=== PATIENT | male | born 1955 | race Caucasian/White ===

== ENCOUNTER 2018-06-18 06:00 | Observation (INO) | payer OTHER ==
--- NOTE | 2018-06-16 15:07 | Diagnostic Imaging Report ---
EXAMINATION: PA and lateral views of the chest. COMPARISON: None CLINICAL HISTORY: Preop exam DISCUSSION: Lines/tubes: None. Lungs: The lungs are well inflated and clear. There is no evidence of pneumonia or pulmonary edema. Pleura: There is no pleural effusion or pneumothorax. Heart and mediastinum: Cardiomediastinal silhouette is unremarkable. Pulmonary vasculature is normal. Bones and soft tissues: No acute bony abnormalities. Degenerative changes in the thoracic spine IMPRESSION: No acute cardiopulmonary abnormalities. Signed by: Dr. Francisco Alva M.D. on 06/16/2018 3:04 PM
[2018-06-16 15:17] LABS: BASOPHILS % 0.3 % (0.0-1.0); EOSINOPHILS # (AUTO) 0.1 (0.0-0.4); EOSINOPHILS % 1.1 % (0.0-6.0); HEMATOCRIT 47.9 % (38.2-49.6); HEMOGLOBIN 15.2 g/dL (14.0-18.0); LYMPHOCYTES # (AUTO) 1.2 (1.0-3.2); LYMPHOCYTES % 13.2 % (18.0-39.1); MEAN CORPUSCULAR HEMOGLOBIN 30.3 pg (28-32); MEAN CORPUSCULAR HGB CONC 31.7 g/dL (31-35); MEAN CORPUSCULAR VOLUME 95.6 fL (81-99); MONOCYTES # (AUTO) 0.9 (0.2-0.8); MONOCYTES % 10.1 % (4.4-11.3); NEUTROPHILS # (AUTO) 6.6 (2.1-6.9); NEUTROPHILS % 73.4 % (38.7-80.0); PLATELET COUNT 155 x10e3/uL (140-360); RED BLOOD COUNT 5.01 x10e6/uL (4.3-5.7); RED CELL DISTRIBUTION WIDTH 14.2 % (11.7-14.4)
[2018-06-16 15:27] LABS: INR 1.13; PARTIAL THROMBOPLASTIN TIME 23.1 seconds (23.8-35.5); PROTHROMBIN TIME 13.6 seconds (11.9-14.5)
[2018-06-16 15:34] LABS: ANION GAP 13.4 mmol/L (8-16); BLOOD UREA NITROGEN 21 mg/dL (7-26); BUN/CREATININE RATIO 19 (6-25); CALCIUM 9.7 mg/dL (8.4-10.2); CARBON DIOXIDE 27 mmol/L (22-29); CHLORIDE 102 mmol/L (98-107); CREATININE, SERUM 1.08 mg/dL (0.72-1.25); EST GLOMERULAR FILTRATION RATE > 60 ML/MIN (60-); GLUCOSE 95 mg/dL (74-118); POTASSIUM 4.4 mmol/L (3.5-5.1); SODIUM 138 mmol/L (136-145)
[~2018-06-18] VITALS: Ht 180.3 cm; Wt 122.5 kg
[~2018-06-18 06:00] MED LIST: ALLOPURINOL100 MG; GABAPENTIN100 MG; HYDROCODON-ACE1 EAC9; LISINOPRIL20 MG; OXYCODONE-ACET1 EAC3 PO; PERCOCET 10-321 EACH PO; SOMA350 MG PO; TRIAMTERENE-HC1 EAC2; VICODIN ES 7.51 EACH PO
[2018-06-18] MEDS ORDERED: LIDOCAINE HCL (LTA) 4 ML SOLN ONE (07:03)
[2018-06-18] MEDS ORDERED: ACETAMINOPHEN 1000 MG/100 ML 100 ML IV ONE (07:03)
[2018-06-18] MEDS ORDERED: BACITRACIN 50,000 UNIT VIAL ONE (07:31)
[2018-06-18] MEDS ORDERED: GELATIN SPONGE SZ 100 ONE (07:31)
[2018-06-18] MEDS ORDERED: THROMBIN FOR SOLN 5,000 UNIT VIAL ONE (07:31)
[2018-06-18] MEDS ORDERED: BUPIVACAINE 0.5%/EPI 30 ML SDV INJ ONE (07:31)
[2018-06-18] MEDS ORDERED: CEFAZOLIN SOD 1 GM VIAL ONE (07:35)
[2018-06-18] MEDS ORDERED: LACTATED RINGER'S 1,000 ML IV SCH (09:20)
[2018-06-18] MEDS ORDERED: CARISOPRODOL 350 MG TAB PO PRN (09:30)
[2018-06-18] MEDS ORDERED: ZOLPIDEM TARTRATE 5 MG TAB PO PRN (09:30)
[2018-06-18] MEDS ORDERED: ACETAMINOPHEN 325 MG TAB PO PRN (09:30)
[2018-06-18] MEDS ORDERED: OXYCODONE/ACETAMINOPHEN 5-325 1 EACH TABLET PO PRN (09:30)
[2018-06-18] MEDS ORDERED: CEPACOL SORE THROAT LOZENGES PO PRN (09:30)
[2018-06-18] MEDS ORDERED: MAGNESIUM/ALUMINUM/SIMETHICONE 30 ML UDC PO PRN (09:30)
[2018-06-18] MEDS ORDERED: PROMETHAZINE HCL (IM) 25 MG/ML VIAL IM PRN (09:30)
[2018-06-18] MEDS ORDERED: FENTANYL CITRATE/PF 100MCG/2 ML INJ ONE ×2 (10:40→19:11)
[2018-06-18] MEDS ORDERED: HYDROMORPHONE 1MG/1ML INJ ONE (11:01)
[2018-06-18 12:31] VITALS: BP 166/88
--- NOTE | 2018-06-18 12:33 | Operative Report ---
DATE OF PROCEDURE: June 18, 2018 PREOPERATIVE DIAGNOSIS: C4-C5 spondylosis and spondylolisthesis with spinal stenosis, M50.121. POSTOPERATIVE DIAGNOSIS: C4-C5 spondylosis and spondylolisthesis with spinal stenosis, M50.121. PROCEDURES 1. C4-C5 anterior cervical diskectomy and microsurgical osteophyte resection and allograft fusion, 80258. 2. Preparation of MTF cortical cancellous allograft, 16048. 3. C5-C6 anterior cervical plating with Synthes ZPN plate, 96851. ANESTHESIA: General. INDICATIONS: Patient is a 63-year-old man who presents with C4-C5 spondylosis with large disk osteophyte complex, grade I spondylolisthesis, bilateral uncinate hypertrophies with central and bilateral foraminal stenosis. He was taken to the operating room for C4-C5 anterior cervical decompression and fusion. PROCEDURE: After induction of general anesthesia, the patient was placed on the operating table in the supine position. The right side of the neck was prepped and draped in sterile fashion. The fluoroscopic C-arm was positioned in cross-table lateral orientation. A transverse incision was created at the right side of the neck superimposed on the C4-C5 disk space as determined by fluoroscopy. The platysma was divided in line with the incision. The subplatysmal dissection was carried out. An avascular plane of dissection was developed medial to sternocleidomastoid muscle and was followed medial to the carotid sheath to the anterior border of the cervical spine. The deep cervical fascia was opened. The esophagus was retracted to the left. The attachments of longus coli muscles to the anterolateral aspects of vertebral bodies of C4 and C5 were divided. The anterior longitudinal ligament was resected. Silvis posts were inserted into C4 and C5. Then, the Silvis distractor was used to distract the disk space. The anterior annulus of the disk was incised with a #11 blade and the contents of the disks were thoroughly evacuated with angled curettes and pituitary rongeurs. The posterior osteophytes were meticulously drilled with a 2 mm cutting bur on a high-speed drill until they were completely removed. The posterior annulus of the disk, herniated disk material, and the posterior longitudinal ligament were resected layer by layer until the dura was fully exposed and decompressed. The medial aspects of the uncinate processes were resected bilaterally to further expose and decompress the origins of the corresponding nerve roots. After satisfactory decompression had been achieved, the endplates were prepared for fusion. The disk space was sized and found to be 9 mm in height. A piece of MTF cortical cancellous allograft measuring 9 mm in thickness was selected and loaded onto a corresponding Synthes ZPN plate. The construct was inserted into the C4-C5 disk space under distraction and fluoroscopic guidance and tapped in place until the anterior margin of the plate was flushed with anterior margin of the vertebral bodies. The ZPN plate was then screwed to the endplates of C4 and C5 with 2 pairs of 16 mm screws. All screws were locked. An excellent construct was obtained. The wound was copiously irrigated with Bacitracin solution. Meticulous hemostasis was secured. Retractor was removed. The platysma was closed with 3-0 Vicryl sutures. The skin was closed with 4-0 Monocryl sutures in subcuticular fashion. Steri strips and dressing were applied. The patient was awakened, extubated, and taken to the postanesthesia care unit in stable condition. No intraoperative complications were encountered. Estimated blood loss was 10 mL. Job#: [id number] VAS
[2018-06-18 13:24] VITALS: BP 166/88
[2018-06-18] MEDS ORDERED: CEFAZOLIN SOD 1 GM/D5W 50ML 50 ML IV SCH (14:00)
[2018-06-18] MEDS ORDERED: PROPOFOL IV EMULSION 10 MG/ML 20 ML VIAL ONE (14:53)
[2018-06-18] MEDS ORDERED: LIDOCAINE HCL 2% LOCAL INJ 5 ML SDV VIAL INJ ONE (14:53)
[2018-06-18] MEDS ORDERED: ROCURONIUM BROMIDE 10 MG/ML 5ML VIAL ONE (14:53)
[2018-06-18] MEDS ORDERED: GLYCOPYRROLATE INJ 1MG/ 5 ML SYR ONE (14:53)
[2018-06-18] MEDS ORDERED: DEXAMETHASONE SOD PHOS INJ 4 MG/ML VIAL ONE (14:53)
[2018-06-18] MEDS ORDERED: ONDANSETRON HCL INJ 2 MG/ML VIAL ONE (14:53)
[2018-06-18] MEDS ORDERED: LIDOCAINE HCL 2% JELLY 5 ML TUBE ONE (14:53)
[2018-06-18] MEDS ORDERED: SEVOFLURANE INHAL SOLN 250 ML PEN BTL ONE (14:53)
[2018-06-18] MEDS ORDERED: NEOSTIGMINE 5 MG/5ML SYR ONE (14:53)
[2018-06-18] MEDS: HYDROMORPHONE 2MG/ML 2 MG/ML ML IV PRN ×2 (15:14→21:12)
[2018-06-18] MEDS: GABAPENTIN 300 MG CAP PO SCH ×2 (15:21→21:15)
[2018-06-18 15:38] VITALS: BP 123/62
[2018-06-18] MEDS: CEFAZOLIN SOD 1 GM VIAL IV SCH (17:06)
[2018-06-18] MEDS ORDERED: MIDAZOLAM HCL 2 MG/2 ML VIAL ONE (19:11)
[2018-06-18 19:55] VITALS: BP 135/66
[2018-06-18 20:00] VITALS: BP 135/66
[2018-06-18] MEDS: ONDANSETRON HCL INJ 2 MG/ML VIAL IV PRN (21:12)
[2018-06-19 00:30] VITALS: BP 138/64
[2018-06-19] MEDS: HYDROMORPHONE 2MG/ML 2 MG/ML ML IV PRN ×2 (03:12→07:45)
[2018-06-19 05:00] VITALS: BP 142/61
--- NOTE | 2018-06-19 06:50 | Diagnostic Imaging Report ---
C-SPINE 2 VIEWS AP LATERAL HISTORY: Postsurgical cervical spine COMPARISON: MRI of the cervical spine on 11/16/2014 FINDINGS: Bones: No displaced fracture. Postsurgical anterior stabilization at C4-5 level with intervertebral disc spacer Osseous alignment is within normal limits. Joints: Multilevel facet and uncovertebral hypertrophy. Soft tissues: The soft tissues appear unremarkable. IMPRESSION: No acute radiographic abnormality. Postsurgical cervical spine with hardware in good alignment and position Signed by: Dr. Bo Bustillos M.D. on 06/19/2018 6:47 AM
[2018-06-19] MEDS: ONDANSETRON HCL INJ 2 MG/ML VIAL IV PRN (07:45)
[2018-06-19 07:56] VITALS: BP 142/67
[2018-06-19] MEDS: CEFAZOLIN SOD 1 GM VIAL IV SCH ×2 (08:10)
[2018-06-19] MEDS: GABAPENTIN 300 MG CAP PO SCH (08:10)
[2018-06-19] MEDS ORDERED: ALLOPURINOL 300 MG TAB PO SCH (09:00)
[2018-06-19] MEDS ORDERED: LISINOPRIL 20 MG TAB PO SCH (09:00)
[2018-06-19 09:26] VITALS: BP 142/67
[2018-06-19] MEDS ORDERED: NORCO 7.5-3251 EACH PO (10:02)
--- OUTSIDE RECORDS SUMMARY | 2018-07-09 07:39 | XMS REPORT ---
Author Author [facility] Address Unknown Phone Unavailable Care Team Providers Care [employer] Name Role Phone KOBE BUSCH Unavailable Unavailable Problems This patient has no known problems. Allergies, Adverse Reactions, Alerts This patient has no known allergies or adverse reactions. Medications This patient has no known medications. Results Test Description Test Time Test Comments Text Results Atomic Results Result Comments C-SPINE 2 VIEWS AP LATERAL 2018-06-19 06:45:00 [place] [address] Patient Name: BRANDON BOYER MR #: [id number] : 1955 Age/Sex: 63/ M Req #: [id number] [facility] Physician: KOBE BUSCH MD Ordered by: KOBE BUSCH MD Report #: [id number] Location: [facility] Room/Bed : [place] [address] Procedure: [id number] DX/C-SPINE 2 VIEWS AP LATERAL Exam Date: 06/19/18 Exam Time: 0610 REPORT STATUS: Signed C-SPINE 2 VIEWS AP LATERAL HISTORY: Postsurgical cervical spine COMPARISON: MRI of the cervical spine on 2014 FINDINGS: Bones: No displaced fracture. Postsurgical anterior stabilization at C4-5 level with intervertebral disc spacer Osseous alignment is within normal limits. Joints: Multilevel facet and uncovertebral hypertrophy. Soft tissues: The soft tissues appear unremarkable. IMPRESSION: No acute radiographic abnormality. Postsurgical cervical spine with hardware in good alignment and position Signed by: Dr. Bo Bustillos M.D. on 06/19/2018 6:47 AM Dictated By: BO CRUZ MD [id number] COPY TO: KOBE BUSCH MD CHEST 2 VIEWS 2018-06-16 15:03:00 [place] [address] Patient Name: BRANDON BOYER MR #: [id number] : 1955 Age/Sex: 63/M Req #: [id number] Adm Physician: Ordered by: KOBE BUSCH MD Report #: [id number] Location: OR Room/Bed: Procedure: [id number] DX/CHEST 2 VIEWS Exam Date: 06/16/18 Exam Time: 1440 REPORT STATUS: Signed EXAMINATION: PA and lateral views of the chest. COMPARISON: None CLINICAL HISTORY: Preop exam DISCUSSION: Lines/tubes: None. Lungs: The lungs are well inflated and clear. There is no evidence of pneumonia or pulmonary edema. Pleura: There is no pleural effusion or pneumothorax. Heart and mediastinum: Cardiomediastinal silhouette is unremarkable. Pulmonary vasculature is normal. Bones and soft tissues: No acute bony abnormalities. Degenerative changes in the thoracic spine IMPRESSION: No acute cardiopulmonary abnormalities. Signed by: Dr. Galindo Alva M.D. on 06/16/2018 3:04 PM Dictated By: GALINDO ALVA MD 1506 Transcribed By : XOCHILT on 06/16/18 150 COPY TO: KOBE BUSCH MD
== END 2018-06-19 10:42 | disposition home or self-care (01) ==
LOC: OR 06:00 → PACU V 09:22 → IMCU 12:28 → UNDODISOB 15:23
PROVIDERS: ADMIT Neurological Surgery; ATTEND Neurological Surgery
DX: M50.121 Cervical disc disorder at C4-C5 level with radiculopathy (principal); I10 Essential (primary) hypertension; B18.2 Chronic viral hepatitis C; E78.5 Hyperlipidemia, unspecified; Z96.653 Presence of artificial knee joint, bilateral; G47.33 Obstructive sleep apnea (adult) (pediatric); E11.9 Type 2 diabetes mellitus without complications; Z88.5 Allergy status to narcotic agent; Z01.810 Encounter for preprocedural cardiovascular examination; Z01.812 Encounter for preprocedural laboratory examination; Z01.811 Encounter for preprocedural respiratory examination
CPT/HCPCS: 20931; 22551; 22845; 36415 ×2; 71046; 72040; 77003; 80048; 82948; 85025; 85610; 85730; 86850; 86900; 88304; 93005; C1713 ×2; C9359; G0378 ×2; J0690 ×2; J1100; J1170 ×3; J2001 ×2; J2250; J2405 ×2; J3490; J7120

== ENCOUNTER 2019-02-01 10:48 | Inpatient (IN) | payer OTHER ==
[2019-02-01] VITALS (11 sets, daily range): BP systolic 100–145; BP diastolic 77–96
[~2019-02-01] VITALS: Ht 172.7 cm; Wt 130.8 kg
[~2019-02-01 10:48] MED LIST changes: +NORCO 7.5-3251 EACH PO
[2019-02-01] MEDS ORDERED: DILTIAZEM HCL 5 MG/ML 5 ML VIAL IV STA (11:12)
[2019-02-01] MEDS ORDERED: SODIUM CHLORIDE 0.9% 500ML 500 ML IV ONE ×2 (11:15→12:30)
--- NOTE | 2019-02-01 11:17 | NUR ---
REC'D PT IN RM 2 FROM TRIAGE FOR IRREGULAR HEART RHYTHM.. AMBULATED TO THE ROOM WITH A STEADY GAIT AND DENIES ANY CHEST PAIN/SHORTNESS OF BREATH. PLACED ON THE MONITOR AND IV ACCESS ATTEMPTED. BED LOW/LOCKED AND CALL ALEXANDER IN HAND.
[2019-02-01] MEDS ORDERED: SODIUM CHLORIDE 0.9% 500ML 500 ML ONE (11:19)
[2019-02-01] MEDS ORDERED: ASPIRIN 81 MG CHEW TAB PO ONE (11:30)
[2019-02-01] MEDS ORDERED: DILTIAZEM HCL 5 MG/ML 5 ML VIAL IV ONE ×2 (11:30→11:37)
[2019-02-01 11:35] LABS: BASOPHILS % 0.2 % (0.0-1.0); EOSINOPHILS # (AUTO) 0.1 (0.0-0.4); EOSINOPHILS % 2.1 % (0.0-6.0); HEMATOCRIT 42.6 % (38.2-49.6); HEMOGLOBIN 13.6 g/dL (14.0-18.0); LYMPHOCYTES # (AUTO) 0.9 (1.0-3.2); LYMPHOCYTES % 14.6 % (18.0-39.1); MEAN CORPUSCULAR HGB CONC 31.9 g/dL (31-35); MEAN CORPUSCULAR VOLUME 93.8 fL (81-99); MONOCYTES # (AUTO) 0.6 (0.2-0.8); MONOCYTES % 9.7 % (4.4-11.3); NEUTROPHILS # (AUTO) 4.4 (2.1-6.9); NEUTROPHILS % 72.6 % (38.7-80.0); PLATELET COUNT 131 x10e3/uL (140-360); RED BLOOD COUNT 4.54 x10e6/uL (4.3-5.7); RED CELL DISTRIBUTION WIDTH 14.2 % (11.7-14.4)
--- NOTE | 2019-02-01 11:37 | NUR ---
DR. GUERRA AT BEDSIDE SPEAKING WITH PT.
[2019-02-01 11:38] LABS: INR 1.05; PROTHROMBIN TIME 14.2 seconds (11.9-14.5)
[2019-02-01 11:39] LABS: PARTIAL THROMBOPLASTIN TIME 24.2 seconds (23.8-35.5)
[2019-02-01 11:46] LABS: ALANINE AMINOTRANSFERASE 24 IU/L (0-55); ALBUMIN 3.9 g/dL (3.5-5.0); ALBUMIN/GLOBULIN RATIO 1.3 (0.8-2.0); ALKALINE PHOSPHATASE 64 IU/L (40-150); ANION GAP 14.4 mmol/L (8-16); BLOOD UREA NITROGEN 12 mg/dL (7-26); BUN/CREATININE RATIO 11 (6-25); CALCIUM 9.7 mg/dL (8.4-10.2); CARBON DIOXIDE 28 mmol/L (22-29); CHLORIDE 103 mmol/L (98-107); CREATINE KINASE 70 IU/L (30-200); CREATININE, SERUM 1.06 mg/dL (0.72-1.25); EST GLOMERULAR FILTRATION RATE > 60 ML/MIN (60-); GLUCOSE 136 mg/dL (74-118); POTASSIUM 4.4 mmol/L (3.5-5.1); SODIUM 141 mmol/L (136-145)
[2019-02-01] MEDS ORDERED: METOPROLOL TARTRATE INJ 1 MG/ML VIAL IV ONE ×4 (12:00→20:45)
[2019-02-01 12:05] LABS: THYROID STIMULATING HORMONE 0.675 uIU/mL (0.350-4.940)
[2019-02-01] MEDS ORDERED: ENOXAPARIN SODIUM INJ 100 MG/ML SYR SC SCH (12:30)
[2019-02-01 12:43] LABS: CLARITY,URINE CLEAR (CLEAR); COLOR,URINE YELLOW (YELLOW); LEUKOCYTE ESTERASE ,URINE NEGATIVE (NEGATIVE); NITRITE,URINE NEGATIVE (NEGATIVE)
[2019-02-01 12:44] LABS: BILIRUBIN,URINE NEGATIVE (NEGATIVE); KETONES,URINE NEGATIVE (NEGATIVE); PROTEIN,URINE DIPSTICK TRACE (NEGATIVE); URINE UROBILINOGEN 0.2 mg/dL (0.2 - 1)
[2019-02-01 12:55] LABS: BACTERIA,URINE FEW /HPF; RBC,URINE 0-5 /HPF (0-5)
[2019-02-01 12:56] LABS: EPITHELIAL CELLS,URINE FEW /LPF
--- NOTE | 2019-02-01 13:41 | Diagnostic Imaging Report ---
EXAM: CHEST SINGLE (PORTABLE) DATE: 02/01/2019 11:12 AM INDICATION:Chest pain COMPARISON: Chest x-ray, 06/16/2018 FINDINGS: Lines and tubes: None Heart size normal. No focal pulmonary opacity, pleural effusion or pneumothorax. Upper abdomen unremarkable. No acute bony abnormality. IMPRESSION: No evidence for acute disease. Signed by: Dr. Ravindra Johnson M.D. on 02/01/2019 1:38 PM
[2019-02-01] MEDS ORDERED: AMIODARONE HCL 360MG 200 ML IV SCH ×2 (13:45→18:00)
[2019-02-01] MEDS ORDERED: AMIODARONE HCL 150MG 100 ML IV SCH (13:45)
[2019-02-01] MEDS ORDERED: AMIODARONE HCL 150MG 100 ML ONE (13:49)
[2019-02-01] MEDS ORDERED: AMIODARONE HCL 900 MG in DEXTROSE 5 % 500ML BOTTLE 500 ML IV ONE (14:00)
[2019-02-01] MEDS ORDERED: AMIODARONE HCL 150 MG in DEXTROSE 5% 100ML 100 ML IV ONE (14:00)
--- NOTE | 2019-02-01 14:10 | Diagnostic Imaging Report ---
EXAM: CT Chest WITH contrast 02/01/2019 12:22 PM INDICATION: Tachycardia COMPARISON: Chest x-ray, 02/01/2018 TECHNIQUE: Chest was scanned utilizing a multidetector helical scanner from the lung apex through the level of the diaphragm after administration of IV contrast. Thin section reconstructions were obtained with special concentration on the pulmonary arteries. Coronal and sagittal reformations were obtained. Pulmonary embolism protocol was performed. Dose modulation, iterative reconstruction, and/or weight based adjustment of the mA/kV was utilized to reduce the radiation dose to as low as reasonably achievable IV CONTRAST: 100 cc Isovue-370 RADIATION DOSE: Total DLP: 667.56 mGy*cm Estimated effective dose: (DLP x 0.014 x size factor) mSv COMPLICATIONS: None FINDINGS: LINES/ TUBES: None. LUNGS AND AIRWAYS: No filling defect is identified within the pulmonary arteries to the segmental level. No pulmonary opacity. Trachea and main bronchi are clear. PLEURA: The pleural spaces are clear. HEART AND MEDIASTINUM: The thyroid gland is normal. No mediastinal, hilar or axillary lymphadenopathy. The heart is normal in size.. There is no pericardial effusion. No dilatation of the thoracic aorta. There is mild dilatation of the main pulmonary artery measuring 3.5 cm, nonspecific but may be seen with pulmonary hypertension. Calcifications are seen in the aortic valve. UPPER ABDOMEN: Included portions of the liver, spleen, pancreas and adrenals unremarkable. BONES: There are degenerative changes in the thoracic spine. No acute or suspicious bony lesion. SOFT TISSUES: Superficial surrounding soft tissue unremarkable. IMPRESSION: 1. No CT evidence for acute pulmonary embolism. No thoracic aortic aneurysm. Mild nonspecific dilatation of the main pulmonary artery which may be seen with pulmonary hypertension. 2. No pulmonary consolidation or airspace opacity.. Staff: Alex Signed by: Dr. Ravindra Johnson M.D. on 02/01/2019 2:07 PM
[2019-02-01] MEDS: FAMOTIDINE 20 MG/2 ML VIAL IV SCH (14:15)
[2019-02-01] MEDS ORDERED: DEXTROSE 50% SYRINGE 50 ML IV PRN (14:15)
[2019-02-01] MEDS ORDERED: ONDANSETRON HCL INJ 2MG/ML 2ML 2 MG/ML VIAL IV PRN (14:15)
--- NOTE | 2019-02-01 14:46 | NUR ---
REPORT CALLED TO MAULIK JAUREGUI FOR THIS PT. TO GO TO RM 190.
[2019-02-01] MEDS: INSULIN LISPRO 100 UNIT/1 ML 3ML VIAL SQ SCH ×2 (16:30→21:00)
[2019-02-01] MEDS ORDERED: DIGOXIN INJ 0.25 MG/ML 2 ML AMP IV NR (17:30)
[2019-02-01] MEDS ORDERED: PNEUMOCOCCAL VACCINE POLYVALENT 23 MCG/0.5 ML VIAL IM SCH (18:00)
[2019-02-01 18:18] LABS: FREE THYROXINE INDEX 1.9166 (1.4-3.8)
[2019-02-01] MEDS: HYDROCODONE/APAP 7.5MG-325MG 1 EA TAB PO PRN (18:30)
[2019-02-01] MEDS ORDERED: SODIUM CHLORIDE 0.9% 50ML 50 ML ONE (19:19)
[2019-02-01] MEDS ORDERED: IOPAMIDOL 370 MG/ML 200 ML INFUS..BTL INJ ONE (19:19)
[2019-02-01] MEDS ORDERED: AMIODARONE HCL IV ONE (20:00)
[2019-02-01 20:09] LABS: CREATINE KINASE MB 1.6 ng/mL (0-5.0)
[2019-02-01] MEDS ORDERED: DIGOXIN INJ 0.25 MG/ML 2 ML AMP IV ONE (20:45)
[2019-02-01] MEDS: GABAPENTIN 100 MG CAP PO SCH (21:02)
[2019-02-01] MEDS: ENOXAPARIN SODIUM INJ 100 MG/ML SYR SC SCH (21:30)
--- NOTE | 2019-02-01 23:46 | History and Physical ---
CHIEF COMPLAINT: The patient is in ICU 190, admitted for atrial flutter. HISTORY OF PRESENT ILLNESS: This is a 63-year-old gentleman with a history of hypertension, hyperlipidemia, was in usual state of health until about one week ago, the patient started to have chest pain, noted is gradual in onset. Came in to the office today and was noted to have tachycardia. The patient's EKG was done, showed atrial flutter, and the patient was sent to the emergency room for further workup and management. PAST MEDICAL HISTORY: History of chronic pain syndrome, history of chronic low back pain, history of hypertension, history of gouty arthritis and osteoarthritis. Additional medical history includes hepatitis C and type 2 diabetes is controlled by diet. SURGICAL HISTORY: History of shoulder surgery, knee surgery in 1996. The patient has history of kidney removal. SOCIAL HISTORY: No EtOH. No IV drug abuse. Lives with and no history of any smoking either. REVIEW OF SYSTEMS: Positive for chest pain. Positive for some shortness of breath on exertion. No nausea, vomiting, or diarrhea. No constipation. No rectal bleeding. Positive for palpitation. No hematochezia. No hematemesis. No diplopia. No blurry vision. Positive for extreme tiredness. ALLERGIES: THE PATIENT IS ALLERGIC TO MORPHINE. MEDICINES: He takes at home are allopurinol 100 mg daily, gabapentin 400 mg 3 times a day, hydrocodone 7.5/325 q.6 hours, Percocet 10/325 a day, and lisinopril 20 mg daily. PHYSICAL EXAMINATION: GENERAL: The patient is alert and oriented x3, in ICU and did receive Lovenox and is on amiodarone drip. VITAL SIGNS: The patient's vital signs at this time pulse of 130, temperature of 98, blood pressure is 106/83, and pulse oximetry of 99%. HEENT: Normocephalic, atraumatic. Pupils are reactive to light and accommodation. CARDIOVASCULAR SYSTEM: S1, S2. Regular. The patient is tachycardic at 130. ABDOMEN: Nontender and nondistended. EXTREMITIES: No clubbing. Positive for trace edema. LABORATORY VALUES: Initial white count is 6.9, hemoglobin of 13.6, hematocrit of 42.6. Chemistry shows sodium of 141, potassium 4.4, BUN of 12, creatinine 1.06, glucose 136. BNP was 181.3. Coags, INR is 1.05. D-dimer is 1.53. IMAGING STUDIES: Chest CT was done because of D-dimer showed no CT evidence of pulmonary embolism. No pulmonary consolidation or airspace opacities. ASSESSMENT: 1. Atrial flutter. The patient is on amiodarone drip. 2. Acute congestive heart failure, systolic ejection fraction being 25% to 30%. Possible coronary artery disease. We will need cardiac workup. 3. Diabetes mellitus, controlled with diet. 4. Chronic low back pain. We will continue hydrocodone as needed. 5. History of hypoxia. We will need oxygen supplementation, chronic osteoarthritis. PLAN: Plan is to continue the patient in ICU. We will need to continue to monitor his rate and bring it down. At this time, we will keep him in ICU and Lovenox for prophylaxis. GI prophylaxis will be done too and also restart all his home medications including allopurinol, gabapentin. Further recommendation per clinical course. A consult with Dr. Prabhakar has been done. Cardiology has seen the patient already. MD DICK Ambriz/MODL /[id number]
--- NOTE | 2019-02-01 23:51 | Consultation ---
DATE OF CONSULTATION: Cardiology Consultation HISTORY OF PRESENT ILLNESS: This is a 63-year-old man with history of hypertension, venous insufficiency, status post ablation, who presented to his primary care provider with chest pain and palpitations. The patient states that his symptoms have been waxing and waning over the last few weeks, associated with some mild central chest pressure associated with a racing heart rate. He was found to be in atrial flutter with rapid ventricular response by his PCP and was transferred to the emergency department. REVIEW OF SYSTEMS: A 12-point review of system was conducted, is negative otherwise as stated above in the HPI. PAST MEDICAL HISTORY: As stated above in the HPI. PAST SURGICAL HISTORY: Cardiac catheterization and venous ablation. PAST FAMILY HISTORY: No premature coronary artery disease or sudden cardiac . SOCIAL HISTORY: No illicit drug, alcohol, or tobacco use. ALLERGIES: MORPHINE. MEDICATIONS: See medication reconciliation form. PHYSICAL EXAMINATION: VITAL SIGNS: Temperature is 98, heart rate is 130, respirations are 18, blood pressure is 114/81, and oxygen saturation 99% on room air. GENERAL: Well-appearing, well-built, in no apparent distress. Alert and oriented x3. HEAD: Normocephalic, atraumatic. EYES: The extraocular muscles are intact. Conjunctivae are clear. NECK: No JVD. No bruits. CARDIOVASCULAR: Irregularly irregular, tachycardic. Normal S1. No murmurs. LUNGS: Clear to auscultation bilaterally. No wheezing or rales. ABDOMEN: Soft, nontender, nondistended. EXTREMITIES: No clubbing, cyanosis, or edema. VASCULAR: 2+ pulses. SKIN: Warm, dry, intact. LABORATORY DATA: Reviewed. Hemoglobin 13.6. Creatinine 1.06, potassium 4.4, magnesium 2. Troponin 0.121. CT of the chest shows no evidence of acute pulmonary embolism or thoracic aortic aneurysm. Chest x-ray shows no acute cardiopulmonary abnormality. A 12-lead electrocardiogram showed atrial fibrillation with rapid ventricular response. Telemetry monitoring revealed atrial flutter with 2:1 block. IMPRESSION: 1. Atrial fibrillation/flutter with rapid ventricular response. 2. Hypertension. 3. Abnormal electrocardiogram. RECOMMENDATIONS: The patient presented with atrial fibrillation/flutter with rapid ventricular response. This did not respond to diltiazem or metoprolol intravenously. Recommend initiation of amiodarone intravenously along with anticoagulation. We will check a 2D echocardiogram once his heart rate has improved. The patient likely will need long-term anticoagulation. If the patient's heart rates are not well controlled, he may require transesophageal echocardiographic-guided direct current cardioversion. Thank you the consultation. We will follow along with you. DO PARKER Trejo/SHERRIE /[id number]
[2019-02-02] VITALS (24 sets, daily range): BP systolic 103–153; BP diastolic 67–117
[2019-02-02] MEDS: FAMOTIDINE 20 MG/2 ML VIAL IV SCH (02:06)
[2019-02-02] MEDS ORDERED: FAMOTIDINE 20 MG/2 ML VIAL IV ONE (02:07)
[2019-02-02 04:59] LABS: BASOPHILS % 0.3 % (0.0-1.0); EOSINOPHILS # (AUTO) 0.2 (0.0-0.4); EOSINOPHILS % 3.5 % (0.0-6.0); HEMATOCRIT 37.3 % (38.2-49.6); HEMOGLOBIN 11.6 g/dL (14.0-18.0); LYMPHOCYTES # (AUTO) 1.1 (1.0-3.2); LYMPHOCYTES % 18.4 % (18.0-39.1); MEAN CORPUSCULAR HEMOGLOBIN 29.9 pg (28-32); MEAN CORPUSCULAR HGB CONC 31.1 g/dL (31-35); MEAN CORPUSCULAR VOLUME 96.1 fL (81-99); MONOCYTES # (AUTO) 0.6 (0.2-0.8); NEUTROPHILS # (AUTO) 4.1 (2.1-6.9); NEUTROPHILS % 67.1 % (38.7-80.0); PLATELET COUNT 120 x10e3/uL (140-360); RED BLOOD COUNT 3.88 x10e6/uL (4.3-5.7); RED CELL DISTRIBUTION WIDTH 14.6 % (11.7-14.4)
[2019-02-02 05:31] LABS: CREATINE KINASE MB 1.4 ng/mL (0-5.0)
[2019-02-02 05:53] LABS: ALANINE AMINOTRANSFERASE 17 IU/L (0-55); ALBUMIN 3.2 g/dL (3.5-5.0); ALBUMIN/GLOBULIN RATIO 1.3 (0.8-2.0); ALKALINE PHOSPHATASE 53 IU/L (40-150); ANION GAP 10.8 mmol/L (8-16); BLOOD UREA NITROGEN 12 mg/dL (7-26); BUN/CREATININE RATIO 13 (6-25); CALCIUM 8.8 mg/dL (8.4-10.2); CARBON DIOXIDE 27 mmol/L (22-29); CHLORIDE 104 mmol/L (98-107); CHOL/HDL RATIO 3.6 (3.9-4.7); CHOLESTEROL 135 MD/DL (0-199); CREATININE, SERUM 0.96 mg/dL (0.72-1.25); EST GLOMERULAR FILTRATION RATE > 60 ML/MIN (60-); GLUCOSE 130 mg/dL (74-118); HDL CHOLESTEROL 37 MG/DL (40-60); LDL CHOLESTEROL 78 MG/DL (60-130); POTASSIUM 3.8 mmol/L (3.5-5.1); SODIUM 138 mmol/L (136-145); TRIGLYCERIDES 100 MG/DL (0-149)
[2019-02-02] MEDS: INSULIN LISPRO 100 UNIT/1 ML 3ML VIAL SQ SCH ×4 (07:30→21:00)
[2019-02-02] MEDS ORDERED: ASPIRIN 81 MG ENTERIC COATED PO SCH (09:00)
[2019-02-02] MEDS: ENOXAPARIN SODIUM INJ 100 MG/ML SYR SC SCH ×2 (09:28→21:54)
[2019-02-02] MEDS: ALLOPURINOL 100 MG TAB PO SCH (09:28)
[2019-02-02] MEDS: GABAPENTIN 100 MG CAP PO SCH ×3 (09:28→21:54)
[2019-02-02] MEDS: HYDROCODONE/APAP 7.5MG-325MG 1 EA TAB PO PRN ×3 (09:32→18:38)
[2019-02-02] MEDS ORDERED: ASPIRIN 81 MG CHEW TAB ONE (09:34)
--- NOTE | 2019-02-02 09:53 | Progress Note ---
DATE: SUBJECTIVE: The patient is a 63-year-old male, who comes in with atrial fibrillation with RVR. The patient is currently on amiodarone drip. Last night, the patient was given 0.5 mg of digoxin. The patient's heart rate came down to 90, back in the 110s to 120s at this time. The patient is currently again on amiodarone drip and two doses of diltiazem were given yesterday too. Asymptomatic, no chest pains at this time. No shortness of breath. No nausea, vomiting, or diarrhea. No constipation. No rectal bleeding either. MEDICATIONS: The patient is on famotidine, Lovenox, amiodarone, gabapentin, insulin and aspirin. PHYSICAL EXAMINATION: HEENT: Normocephalic and atraumatic. Pupils are reactive to light and accommodation. CVS: S1 and S2. Regular. ABDOMEN: Nontender and nondistended. EXTREMITIES: No clubbing. No cyanosis. Positive for atrophic changes. Positive for edema in the lower extremities and also for venous congestion in the lower extremities. LABORATORY VALUES: White count 6.03, hemoglobin of 11.6, hematocrit 37.3, and platelet count of 120. Chemistries; sodium of 138, potassium 3.8, BUN of 12, creatinine of 0.96, glucose is 133, HDL 37, LDL was 78 and total cholesterol was 135. ASSESSMENT: Atrial fibrillation/atrial flutter. PLAN: Continue IV amiodarone, digoxin and beta-blockade. Cardiology consult. Echocardiogram shows EF of 25% to 30% with heart failure. The patient might and will need a IVANA guided cardioversion, which will be carried out by Cardiology at a later date or today. Further recommendation per clinical course. We will continue to monitor the patient. We will need to change the oral anticoagulation once cardioversion is done. MD DICK Ambriz/TRIPL /[id number]
[2019-02-02 11:52] LABS: CREATINE KINASE MB 1.5 ng/mL (0-5.0)
[2019-02-02] MEDS ORDERED: ONDANSETRON HCL 4 MG ORAL DISINTEGRATING TAB PO PRN (12:15)
[2019-02-02] MEDS: METOPROLOL TARTRATE 25 MG TAB PO SCH ×3 (12:30→23:30)
[2019-02-02] MEDS: FAMOTIDINE 20 MG TAB PO SCH (16:04)
--- NOTE | 2019-02-02 17:27 | NUR ---
DR. GUERRA HERE TO SEE PATIENT
[2019-02-02] MEDS ORDERED: DILTIAZEM HCL 125 ML IV SCH (17:45)
--- NOTE | 2019-02-02 20:56 | Progress Note ---
DATE: SUBJECTIVE: Patient feels atypical palpitations and chest pain. OBJECTIVE: VITAL SIGNS: Temperature is 98.2, heart rate is 122, oxygen saturation is 97% on room air, respirations are 21, blood pressure is 157/95. GENERAL: Well appearing, well built, in no apparent distress. CARDIOVASCULAR: Irregularly irregular, tachycardic. LUNGS: Clear to auscultation. ABDOMEN: Soft, nontender, nondistended. EXTREMITIES: No edema. LABORATORY DATA: Reviewed. Negative troponins. Cardiovascular medications reviewed. A 2D echocardiogram was technically difficult due to body habitus, tachycardia and ejection fraction likely falsely load related to the tachycardia. ASSESSMENT: 1. Atrial flutter with variable response. 2. Hypertension. 3. Abnormal electrocardiogram. PLAN/RECOMMENDATIONS: The patient has continued atrial flutter with rapid ventricular response. The patient has not improved with amiodarone intravenously. Continue metoprolol. We will add diltiazem infusion today. Continue anticoagulation. The patient will require transesophageal echocardiographic-guided direct current cardioversion. Jus Swann DO BM/MODL /[id number]
[2019-02-03] VITALS (16 sets, daily range): BP systolic 84–160; BP diastolic 64–94
[2019-02-03 04:56] LABS: BASOPHILS % 0.3 % (0.0-1.0); EOSINOPHILS # (AUTO) 0.2 (0.0-0.4); EOSINOPHILS % 3.2 % (0.0-6.0); HEMATOCRIT 40.6 % (38.2-49.6); HEMOGLOBIN 12.8 g/dL (14.0-18.0); LYMPHOCYTES # (AUTO) 1.2 (1.0-3.2); LYMPHOCYTES % 19.9 % (18.0-39.1); MEAN CORPUSCULAR HEMOGLOBIN 30.1 pg (28-32); MEAN CORPUSCULAR HGB CONC 31.5 g/dL (31-35); MEAN CORPUSCULAR VOLUME 95.5 fL (81-99); MONOCYTES # (AUTO) 0.6 (0.2-0.8); MONOCYTES % 10.9 % (4.4-11.3); NEUTROPHILS # (AUTO) 3.8 (2.1-6.9); PLATELET COUNT 130 x10e3/uL (140-360); RED BLOOD COUNT 4.25 x10e6/uL (4.3-5.7); RED CELL DISTRIBUTION WIDTH 14.6 % (11.7-14.4)
[2019-02-03 05:14] LABS: BLOOD UREA NITROGEN 11 mg/dL (7-26); BUN/CREATININE RATIO 11 (6-25); CALCIUM 9.6 mg/dL (8.4-10.2); CARBON DIOXIDE 26 mmol/L (22-29); CHLORIDE 102 mmol/L (98-107); CREATININE, SERUM 1.02 mg/dL (0.72-1.25); EST GLOMERULAR FILTRATION RATE > 60 ML/MIN (60-); GLUCOSE 109 mg/dL (74-118); SODIUM 138 mmol/L (136-145)
[2019-02-03] MEDS: METOPROLOL TARTRATE 25 MG TAB PO SCH ×4 (06:03→23:54)
[2019-02-03] MEDS: INSULIN LISPRO 100 UNIT/1 ML 3ML VIAL SQ SCH ×4 (07:30→20:41)
[2019-02-03] MEDS: FAMOTIDINE 20 MG TAB PO SCH ×2 (07:30→16:30)
[2019-02-03] MEDS: GABAPENTIN 100 MG CAP PO SCH ×3 (08:18→20:23)
[2019-02-03] MEDS: ALLOPURINOL 100 MG TAB PO SCH (08:18)
[2019-02-03] MEDS: ENOXAPARIN SODIUM INJ 100 MG/ML SYR SC SCH (09:00)
--- NOTE | 2019-02-03 09:38 | Progress Note ---
DATE: SUBJECTIVE: The patient is a 63-year-old gentleman, who comes in with atrial flutter with rapid ventricular response. Yesterday, diltiazem was added. The patient's rate is controlled right now, but still in flutter. Positive some chest pains last night, but did dissipate in about a couple of minutes. No nausea, vomiting, or diarrhea. No constipation. Did have bowel movements. OBJECTIVE: VITAL SIGNS: Temperature is 98.5, pulse 76, blood pressure is 110/83, and pulse oximetry of 98% on room air. HEENT: Normocephalic, atraumatic. Pupils are reactive to light and accommodation. CVS: S1 and S2. Regular. ABDOMEN: Nontender, nondistended. Positive for an umbilical hernia. EXTREMITIES: Positive for trace edema and positive for venous congestion and venous stasis. LABORATORY VALUES: Hemoglobin of 12.8, hematocrit of 40.6. Chemistries; sodium is 138, potassium of 4.0, BUN of 11, creatinine of 1.02, glucose has been running very normal. Troponin and cardiac enzymes have been normal. The patient's urine culture is no growth in the last 48 hours. ASSESSMENT: 1. Atrial flutter with rapid ventricular response and now responding well to diltiazem. 2. Hypertension. 3. History of chest pain. 4. Hyperlipidemia. 5. Diabetes mellitus. 6. Morbid obesity and also history of sleep apnea. RECOMMENDATION: Plan is to continue with diltiazem and amiodarone. The patient will need a transesophageal echocardiogram and cardioversion. Continue monitoring the patient in ICU. Further recommendation per clinical course. Continue on his diabetic medications and also CV medications. MD RAFAELA AmbrizJ/MODL /[id number]
[2019-02-03] MEDS ORDERED: BENZOCAINE 20% SPR 60 ML CAN ONE (12:21)
[2019-02-03] MEDS ORDERED: SODIUM CHLORIDE 0.9% 1000ML 1,000 ML ONE (12:21)
--- NOTE | 2019-02-03 12:25 | NUR ---
PT TAKEN FOR PROCEDURE
--- NOTE | 2019-02-03 13:00 | NUR ---
RECEIVE PT BACK FROM PROCEDURE, IN ROOM PT TO RESUME DIET IN 2 HOURS. AM MEDICATIONS TO BE GIVEN ONCE DIET RESUMES .
--- NOTE | 2019-02-03 13:11 | NUR ---
1228-pt into endo 3 for IVANA/Cardioversion 1235-Dr. Swann arrives 1236-time out done 1237-Pts throat sprayed with hurricaine spray by Dr. Swann 1241-IVANA probe in 1244-Bubble study completed 1246-IVANA probe out 1246-Cardioversion completed at 200j. Pt converted to NSR 1300-pt to Phase 1 recovery-Report given to MAULIK Beckwith
--- NOTE | 2019-02-03 14:10 | NUR ---
RECD PT FROM ICU VIA W/C AAOX3,DENIES PAIN.TELE NO1 SR.
--- NOTE | 2019-02-03 16:07 | NUR ---
CASE MANAGEMENT INITIAL ASSESSMENT Pre [facility] Counseling Aide to bedside to discuss plan of care with patient/family. CM/SW role and care transitions discussed. Anticipated discharge plan discussed along with duration of care. CM/SW discussed patients right to make decisions in care. CM/SW work hours given. Patient lives: [place] [address]. Admit/Transfer: ER FROM [facility] Hospital/ER visits since last admit: NONE POA/Emergency contact: / LINETTE @ [phone] Current/Previous Home Health: NONE PCP/Follow-up Care: DR. GONZÁLES; VISITS REGULARLY Current/Previous DME: [employer], BUT NOT IN USE NOW. FROM A PREVIOUS SURGERY Other Services: NONE Employment Status: WORKS IN WAREHOUSE AT [employer] Areas of Concerns: PREVENTION OF INCREASED HR Referral Needs: NONE Education Needs: DIET AND NEW MEDS IMM/ROWE given and signed (if applicable): N/A Goal for discharge: RETURN HOME CM/SW left business card at the bedside with contact information. Name and number was also written on the patients whiteboard. Patient verbalized understanding of discussion. CM will follow-up with ongoing discharge and transition of care needs.
--- NOTE | 2019-02-03 17:23 | NUR ---
PT UP IN BED ,DENIES CHEST PAIN NO DISTRESS NTOED,
[2019-02-03] MEDS ORDERED: PROPOFOL IV EMULSION 10 MG/ML 50 ML VIAL ONE (17:52)
[2019-02-03] MEDS ORDERED: FENTANYL CITRATE/PF 100MCG/2 ML INJ ONE (17:56)
[2019-02-03] MEDS ORDERED: MIDAZOLAM HCL 5MG/ML 2ML VIAL ONE (17:56)
--- NOTE | 2019-02-03 19:10 | NUR ---
Received patient awake on bed, not in distress, no complaints of chest pain, on telemetry. Call light within easy reach, advised to call for assistance anytime when needed, bed in low position and locked. Will continue to monitor
[2019-02-03] MEDS: HYDROCODONE/APAP 7.5MG-325MG 1 EA TAB PO PRN (21:30)
--- NOTE | 2019-02-03 21:47 | Progress Note ---
DATE: SUBJECTIVE: The patient is feeling better. Underwent transesophageal echocardiographic-guided direct cardioversion today. Denies any chest pain, shortness of breath, or palpitations. OBJECTIVE: VITAL SIGNS: Temperature 97.5, heart rate 64, respirations are 18, blood pressure is 134/75, and oxygen saturation 97% on room air. GENERAL: Well-appearing, well-built, in no apparent distress. CARDIOVASCULAR: Regular rate and rhythm. LUNGS: Clear to auscultation. ABDOMEN: Soft, nontender, and nondistended. EXTREMITIES: No edema. LABORATORY DATA: Reviewed. MEDICATIONS: Reviewed. Telemetry monitoring revealed normal sinus rhythm. IMPRESSION: 1. Atrial fibrillation/flutter with rapid ventricular response, status post cardioversion. 2. Hypertension. 3. Obesity. RECOMMENDATIONS: The patient is currently in normal sinus rhythm, status post cardioversion. Check a limited echocardiogram to re-evaluate left ventricular systolic function, given improvement of heart rate. Continue metoprolol. Discontinue diltiazem. Re-initiate amiodarone p.o. for short course. Can transition to Eliquis 5 mg b.i.d. Jus Swann DO BM/TRIPL /[id number]
[2019-02-04] VITALS: BP 154/89
[2019-02-04 04:00] VITALS: BP 161/84
[2019-02-04] MEDS: METOPROLOL TARTRATE 25 MG TAB PO SCH (05:14)
[2019-02-04] MEDS: HYDROCODONE/APAP 7.5MG-325MG 1 EA TAB PO PRN (05:14)
[2019-02-04 07:30] VITALS: BP_SYST 170; BP_DIAS 90; BP_DIAS 92
[2019-02-04] MEDS: INSULIN LISPRO 100 UNIT/1 ML 3ML VIAL SQ SCH ×2 (07:30→11:30)
--- NOTE | 2019-02-04 07:30 | NUR ---
pt up ambulating in mo denies pain,tele in place nsr
[2019-02-04] MEDS: ALLOPURINOL 100 MG TAB PO SCH (08:15)
[2019-02-04] MEDS: GABAPENTIN 100 MG CAP PO SCH (08:16)
[2019-02-04] MEDS: FAMOTIDINE 20 MG TAB PO SCH (08:17)
[2019-02-04] MEDS ORDERED: AMIODARONE HCL 200 MG TAB PO SCH (09:00)
[2019-02-04] MEDS ORDERED: APIXABAN 5 MG TABLET PO SCH (09:00)
[2019-02-04] MEDS ORDERED: ASPIRIN 81 MG CHEW TAB PO SCH (09:00)
[2019-02-04] MEDS ORDERED: LISINOPRIL 10 MG TAB PO SCH (10:30)
--- NOTE | 2019-02-04 10:30 | Progress Note ---
DATE: SUBJECTIVE: The patient is here for atrial flutter with rapid ventricular response. He underwent a IVANA yesterday with cardioversion. The patient is converted to normal sinus rhythm. Currently, he is asymptomatic. No complaints. No chest pain. No shortness of breath. No nausea, vomiting, or diarrhea. The patient refused insulin yesterday because of blood sugars being high. OBJECTIVE: VITAL SIGNS: Temperature is 97.1, pulse of 68, respirations of 18, blood pressure is 161/84. HEENT: Normocephalic, atraumatic. Pupils are reactive to light and accommodation. CVS: S1 and S2 are regular. ABDOMEN: Nontender and nondistended. EXTREMITIES: No clubbing. No cyanosis. Positive for peripheral vascular changes and also for venous congestion. LABORATORY VALUES: All within normal limits. Chemistries; blood sugars have been running from 120s to 130s. Coags are normal. ASSESSMENT: 1. Atrial fibrillation with rapid ventricular response status post cardioversion. 2. Hypertension. 3. Obesity. PLAN: The patient will need echocardiogram to evaluate ventricular systolic function. Continue with diltiazem and transition to Eliquis 5 mg twice a day for anticoagulation. Further recommendation per clinical course. We will continue to monitor the patient along with Dr. Swann. MD DICK Ambriz/MODL /[id number]
[2019-02-04 11:30] VITALS: BP 136/80
--- NOTE | 2019-02-04 12:55 | Operative Report ---
DATE OF PROCEDURE: 02/03/2019 SURGEON: Jus Swann DO PROCEDURES PERFORMED: 1. Transesophageal echocardiography. 2. Direct current cardioversion. PREPROCEDURE DIAGNOSIS: Atrial flutter with right ventricular response. POSTPROCEDURE DIAGNOSIS: Atrial flutter with right ventricular response. ESTIMATED BLOOD LOSS: Zero. PROCEDURE IN DETAIL: After informed consent was obtained, the patient was brought to the cardiac catheterization laboratory in a fasting and nonsedated state. Anesthesia was used for sedation. The posterior pharynx was anesthetized with Hurricaine spray. After sedation, the patient's esophagus was intubated with the transesophageal echocardiographic probe and diagnostic images were performed. This revealed no left atrial appendage thrombus. Next, the patient underwent cardioversion at 200 joules with successful congregational of normal sinus rhythm. Jus Swann DO BM/MODL /[id number]
[2019-02-04] MEDS ORDERED: METOPROLOL TART50 MG PO (15:13)
[2019-02-04] MEDS ORDERED: ELIQUIS PO (15:16)
[2019-02-04] MEDS ORDERED: AMIODARONE HCL200 MG PO (15:17)
--- NOTE | 2019-02-04 16:14 | NUR ---
PT DISCHARGED HOME,IV DCD WITHOUT REDNESS POR SWELLING,PRESCRIPTIONS AND INSTRUCTIONS GIVEN COPY ON CHART.TRANSPORTED TO AUTO VIA W/C
[2019-02-04] MEDS ORDERED: METOPROLOL TARTRATE 50 MG TAB PO SCH (17:00)
[2019-02-04] MEDS ORDERED: METOPROLOL TARTRATE 25 MG TAB PO SCH (17:00)
== END 2019-02-04 15:47 | disposition home or self-care (01) | DRG 308 ==
LOC: ER 10:48 → UNDOADMIN 14:24 → ERHOLD 14:24 → ICU 15:05 → MED/SURG3 02-03 13:58
PROVIDERS: ADMIT Family Medicine; ATTEND Family Medicine
PROC: 5A2204Z Restoration of Cardiac Rhythm, Single (ICD-10-PCS; principal; 2019-02-03)
DX: I48.92 Unspecified atrial flutter (principal); I50.21 Acute systolic (congestive) heart failure; Z68.41 Body mass index [BMI] 40.0-44.9, adult; Z79.01 Long term (current) use of anticoagulants; I48.91 Unspecified atrial fibrillation; G47.33 Obstructive sleep apnea (adult) (pediatric); E66.01 Morbid (severe) obesity due to excess calories; I11.0 Hypertensive heart disease with heart failure; G89.4 Chronic pain syndrome; M10.9 Gout, unspecified; E11.9 Type 2 diabetes mellitus without complications; M19.90 Unspecified osteoarthritis, unspecified site; E78.5 Hyperlipidemia, unspecified; I87.2 Venous insufficiency (chronic) (peripheral); R94.31 Abnormal electrocardiogram [ECG] [EKG]
CPT/HCPCS: 36415; 71045; 71260; 80048; 80053; 80061; 81001; 82550; 82553; 82948; 83735; 83880; 84436; 84443; 84479; 84484; 85025; 85379; 85610; 85730; 87086; 93005; 93306; 93307; 93312; 93325; 99284; J1160; J1650; J2250; J7030; J7040; Q9967

== ENCOUNTER → 2019-07-30 | Day surgery (SDC) | payer OTHER ==
[2019-07-27 14:35] LABS: BASOPHILS % 0.2 % (0.0-1.0); EOSINOPHILS # (AUTO) 0.3 (0.0-0.4); EOSINOPHILS % 4.9 % (0.0-6.0); HEMATOCRIT 37.9 % (38.2-49.6); HEMOGLOBIN 12.3 g/dL (14.0-18.0); LYMPHOCYTES % 15.9 % (18.0-39.1); MEAN CORPUSCULAR HEMOGLOBIN 30.1 pg (28-32); MEAN CORPUSCULAR HGB CONC 32.5 g/dL (31-35); MEAN CORPUSCULAR VOLUME 92.9 fL (81-99); MONOCYTES # (AUTO) 0.7 (0.2-0.8); MONOCYTES % 11.1 % (4.4-11.3); NEUTROPHILS # (AUTO) 4.1 (2.1-6.9); NEUTROPHILS % 67.1 % (38.7-80.0); PLATELET COUNT 135 x10e3/uL (140-360); RED BLOOD COUNT 4.08 x10e6/uL (4.3-5.7); RED CELL DISTRIBUTION WIDTH 13.7 % (11.7-14.4)
[2019-07-27 14:40] LABS: INR 1.07; PROTHROMBIN TIME 14.4 seconds (11.9-14.5)
[2019-07-27 14:47] LABS: ALBUMIN 3.7 g/dL (3.5-5.0); ALBUMIN/GLOBULIN RATIO 1.3 (0.8-2.0); ANION GAP 13.1 mmol/L (8-16); CALCIUM 10.1 mg/dL (8.4-10.2); CREATININE, SERUM 1.24 mg/dL (0.72-1.25); POTASSIUM 4.1 mmol/L (3.5-5.1)
[2019-07-30] VITALS (7 sets, daily range): BP systolic 132–159; BP diastolic 69–89
[~2019-07-30] VITALS: Ht 180.3 cm; Wt 124.7 kg
[~2019-07-30] MED LIST changes: -ALLOPURINOL100 MG; +ALLOPURINOL100 MG PO; +AMBIEN10 MG PO; +AMIODARONE HCL200 MG PO; +BELBUCA900 MCG BU; +BUMETANIDE1 MG PO; +ELIQUIS PO; +ELIQUIS5 MG PO; +FENTANYL CITRATE/PF 100MCG/2 ML INJ ONE; -GABAPENTIN100 MG; +GABAPENTIN100 MG PO; +HEPARIN SOD/SOD CHLORIDE 2,000 ML ONE; +IOPAMIDOL 300MG/ML 100 ML INFUS..BTL IV ONE; +LIDOCAINE HCL 2% LOCAL 20 ML VIAL ONE; +LISINOPRIL10 MG PO; +METOPROLOL TART50 MG PO; +MIDAZOLAM HCL 2 MG/2 ML VIAL ONE; +SODIUM CHLORIDE 0.9% 1000ML 1,000 ML ONE; +VERAPAMIL HCL 2.5 MG/ML 2 ML VIAL ONE; +VITAMIN D1000 UNI1 PO
--- NOTE | 2019-07-30 16:45 | NUR ---
bedside report received from Clem Scott RN. Alert oriented and appropriate, PERRLA, respirations even and unlabored to room air. Pulses x4 extremities equal and strong. TR band to right wrist 14ml with +neovascular function present. Cap fill brisk < 3 sec. Skin warm and dry integrity appears itnact. IV 20g to left hand presents healthy w/o s/s of infiltration or complaint. Abdomen soft and supple. pt offered toileting, denies need to urinate or defecate. personal affects with patient. Family called to bedside. Pt and family verbalizes understanding of POC. DC planning started. Placed on bedside monitor. Bed low and locked, side rails up x2 , call valdez within reach -cgf
--- NOTE | 2019-07-30 18:05 | NUR ---
TR band successfully removed over past 45 minutes. No gross issues of bleeding or obvious compromise. education received and understood via teachback. No gross issues of VS
--- NOTE | 2019-07-30 18:15 | NUR ---
Pt meets DC criteria. Right Radial assessed for s/s of complication and presence of hematoma. overall skin appearance warm, dry, no discolor, and pulses present. IV removed from left hand. Distal tip appears intact. VS WNL. Pt denies pain, sob, or need at this time. + neurovascular function of right hand present. Family at bedside. Review of discharge paperwork and follow up instructions. verbalized understanding. Pt to wheelchair and transported to front of hospital. Transferred to private vehicle under own strength w/o incident with DC paperwork in hand. - cgf
--- NOTE | 2019-08-23 16:12 | Operative Report ---
DATE OF PROCEDURE: 07/30/2019 SURGEON: Minor Wilson MD INDICATIONS: Coronary artery disease and abnormal stress test. PROCEDURES PERFORMED: 1. Left heart catheterization, selective coronary angiography. 2. Deployment of right wrist TR band. COMPLICATIONS: None. RECOMMENDATIONS: Medical therapy. DESCRIPTION OF PROCEDURE: Access obtained in the right radial artery. A 5-Puerto Rican sheath was placed. Coronary angiography demonstrated mild coronary artery disease, 10% to 20% luminal stenosis in all vessel, 50% proximal left anterior descending artery stenosis. No critical stenosis or occlusion noted. Right wrist TR band applied. The patient discharged home the same day. Minor Wilson MD KSB/MODL /[id number]
== END | disposition home or self-care (01) ==
LOC: CATH LAB 11:33
PROVIDERS: ATTEND Internal Medicine Interventional Cardiology
DX: I25.118 Atherosclerotic heart disease of native coronary artery with other forms of angina pectoris (principal); R94.39 Abnormal result of other cardiovascular function study; I11.0 Hypertensive heart disease with heart failure; I50.20 Unspecified systolic (congestive) heart failure; I48.0 Paroxysmal atrial fibrillation; I73.9 Peripheral vascular disease, unspecified; Z91.048 Other nonmedicinal substance allergy status; Z01.812 Encounter for preprocedural laboratory examination; Z79.02 Long term (current) use of antithrombotics/antiplatelets; Z68.38 Body mass index [BMI] 38.0-38.9, adult
CPT/HCPCS: 36415; 80053; 85025; 85610; 93454; C1887; J2001; J2250; J3010; J7030; Q9967; 99152

== ENCOUNTER 2019-11-22 09:58 | Inpatient (IN) | payer OTHER, MEDICARE ==
[~2019-11-22] VITALS: Ht 180.3 cm; Wt 123.4 kg
[~2019-11-22 09:58] MED LIST changes: -FENTANYL CITRATE/PF 100MCG/2 ML INJ ONE; -HEPARIN SOD/SOD CHLORIDE 2,000 ML ONE; -IOPAMIDOL 300MG/ML 100 ML INFUS..BTL IV ONE; -LIDOCAINE HCL 2% LOCAL 20 ML VIAL ONE; -MIDAZOLAM HCL 2 MG/2 ML VIAL ONE; -SODIUM CHLORIDE 0.9% 1000ML 1,000 ML ONE; -VERAPAMIL HCL 2.5 MG/ML 2 ML VIAL ONE
[2019-11-22] MEDS ORDERED: SODIUM CHLORIDE 0.9% 1000ML 1,000 ML IV STA (10:10)
[2019-11-22] MEDS ORDERED: ACETAMINOPHEN 325 MG TAB PO ONE (10:15)
[2019-11-22] MEDS ORDERED: PIPER-TAZ 3.375 GM 50 ML IV SCH (10:30)
[2019-11-22 10:36] LABS: ABG PCO2 38 mmHg (41-51); ABG PH 7.51 (7.31-7.41)
[2019-11-22 10:37] LABS: ABG HCO3 30 mmol/L (23-28); ABG PO2 68 mmHg (80-105)
[2019-11-22 11:15] LABS: BASOPHILS % 0.2 % (0.0-1.0); EOSINOPHILS % 0.1 % (0.0-6.0); HEMATOCRIT 42.9 % (38.2-49.6); HEMOGLOBIN 14.1 g/dL (14.0-18.0); LYMPHOCYTES # (AUTO) 0.2 (1.0-3.2); LYMPHOCYTES % 2.9 % (18.0-39.1); MEAN CORPUSCULAR HGB CONC 32.9 g/dL (31-35); MEAN CORPUSCULAR VOLUME 91.3 fL (81-99); MONOCYTES % 12.4 % (4.4-11.3); NEUTROPHILS # (AUTO) 6.7 (2.1-6.9); NEUTROPHILS % 83.3 % (38.7-80.0); PLATELET COUNT 124 x10e3/uL (140-360); RED CELL DISTRIBUTION WIDTH 14.2 % (11.7-14.4)
[2019-11-22 11:35] LABS: COLOR,URINE ORANGE (YELLOW)
[2019-11-22 11:36] LABS: BILIRUBIN,URINE NEGATIVE (NEGATIVE); CLARITY,URINE SL CLOUDY (CLEAR); KETONES,URINE TRACE (NEGATIVE); LEUKOCYTE ESTERASE ,URINE NEGATIVE (NEGATIVE); NITRITE,URINE NEGATIVE (NEGATIVE); PROTEIN,URINE DIPSTICK 3+ (NEGATIVE); URINE UROBILINOGEN 0.2 mg/dL (0.2 - 1)
[2019-11-22 11:37] LABS: ALANINE AMINOTRANSFERASE 19 IU/L (0-55); ALBUMIN 2.8 g/dL (3.5-5.0); ALBUMIN/GLOBULIN RATIO 0.7 (0.8-2.0); ALKALINE PHOSPHATASE 62 IU/L (40-150); ANION GAP 17.9 mmol/L (8-16); BLOOD UREA NITROGEN 19 mg/dL (7-26); BUN/CREATININE RATIO 18 (6-25); CALCIUM 10.1 mg/dL (8.4-10.2); CARBON DIOXIDE 27 mmol/L (22-29); CHLORIDE 92 mmol/L (98-107); CREATINE KINASE 72 IU/L (30-200); CREATININE, SERUM 1.07 mg/dL (0.72-1.25); EST GLOMERULAR FILTRATION RATE > 60 ML/MIN (60-); GLUCOSE 211 mg/dL (74-118); POTASSIUM 3.9 mmol/L (3.5-5.1); SODIUM 133 mmol/L (136-145)
[2019-11-22] MEDS ORDERED: SODIUM CHLORIDE 0.9% 1000ML 1,000 ML IV SCH (12:15)
[2019-11-22 12:25] LABS: BACTERIA,URINE FEW /HPF; EPITHELIAL CELLS,URINE FEW /LPF
[2019-11-22] MEDS ORDERED: MORPHINE SULFATE 2 MG/ML SYR 1ML IV PRN (13:15)
[2019-11-22] MEDS ORDERED: ONDANSETRON HCL INJ 2MG/ML 2ML 2 MG/ML VIAL IV PRN (13:15)
--- NOTE | 2019-11-22 13:32 | Diagnostic Imaging Report ---
INDICATION: Right upper chest wall infection. COMPARISON: February 01, 2019 TECHNIQUE: Chest CT exam WITH intravenous contrast. The exam was performed according to our department dose-optimization protocol, which includes automated exposure control, adjustments of mA and kV according to patient size. Iterative reconstructions are also sometimes employed. FINDINGS: Posterior and inferior to the right sternoclavicular joint is soft tissue thickening with soft tissue gas, and this is likely contiguous with retropectoral soft tissue thickening and gas anterior to the right first costochondral margin. The cortex at the right sternoclavicular joint is intact (no osseous destruction). No supraclavicular, mediastinal, or hilar lymphadenopathy is demonstrated. Lungs are clear. Heart is normal in size and there is no pericardial effusion. Thyroid gland, esophagus, and upper abdomen are unremarkable. IMPRESSION: Focal right anterior chest wall infection abutting the right sternoclavicular joint without evidence of osteomyelitis. Signed by: Dillon Kapadia MD on 11/22/2019 1:30 PM
[2019-11-22] MEDS ORDERED: HYDROCODONE/APAP 10MG-325MG TAB PO PRN (14:00)
[2019-11-22] MEDS: CLINDAMYCIN 600MG / 50ML 50 ML IV SCH (14:05)
[2019-11-22] MEDS ORDERED: HYDROMORPHONE 1MG/1ML INJ IV PRN (14:30)
[2019-11-22] MEDS ORDERED: IOPAMIDOL 370 MG/ML 200 ML INFUS..BTL INJ ONE (14:54)
[2019-11-22] MEDS: VANCOMYCIN 1GM/NS 250 ML 250 ML IV SCH (16:20)
[2019-11-22] MEDS ORDERED: CEFEPIME 2 GM/NS 0.9% 100 ML 100 ML IV SCH (17:00)
[2019-11-22] MEDS ORDERED: PROPOFOL IV EMULSION 10 MG/ML 20 ML VIAL ONE (18:00)
[2019-11-22] MEDS ORDERED: LIDOCAINE HCL 2% LOCAL INJ 5 ML SDV VIAL INJ ONE (18:00)
[2019-11-22] MEDS ORDERED: FENTANYL CITRATE/PF 100MCG/2 ML INJ ONE (18:12)
[2019-11-22] MEDS ORDERED: MIDAZOLAM HCL 2 MG/2 ML VIAL ONE (18:12)
--- NOTE | 2019-11-22 18:50 | NUR ---
Transferred to room 202 from home. Alert and oriented to name, hospital, time, and diagnosis: chest wall abscess, LORENA in place with Sanguineous drainage. c/o 9/10 pain at wound site. Ambulatory with standby assist. Continent B/B. Oriented to room, bed locked, call light within reach.
[2019-11-22] MEDS: HYDROMORPHONE 1MG/1ML INJ IV PRN (19:25)
[2019-11-22 20:00] VITALS: BP 134/82
[2019-11-22] MEDS ORDERED: SODIUM CHLORIDE 0.9% 250ML 250 ML ONE (20:42)
[2019-11-22] MEDS: CEFEPIME 2 GM/NS 0.9% 100 ML 100 ML IV SCH (20:50)
[2019-11-22 21:00] VITALS: BP 134/82
--- NOTE | 2019-11-22 22:19 | Consultation ---
DATE OF CONSULTATION: 11/22/2019 REASON FOR CONSULTATION: Sepsis, cellulitis of the chest wall. HISTORY OF PRESENT ILLNESS: This patient who is a 64-year-old white male, who has history of hypertension, history of obesity, gout. He woke up with severe pain on the right chest with fever and chills. He did not hit it. There was no history of trauma, but the pain was getting progressively worse with fever. He finally came to the emergency room where he is being admitted. I am asked to see him. I saw the patient, he was lying in bed comfortably, but in pain. PAST MEDICAL HISTORY: As mentioned above, hypertension, gout, obesity. PAST SURGICAL HISTORY: Denies. ALLERGIES: MORPHINE. SOCIAL HISTORY: There is no smoking, drug abuse, or alcohol abuse. FAMILY HISTORY: Otherwise noncontributory. REVIEW OF SYSTEMS: Besides the fever and chills and chest pain, he denies any. There is no nausea, no vomiting. LABORATORY DATA: White count 8.04, hemoglobin 14, hematocrit 42. His sodium 133, potassium 3.9, creatinine 1.07. CAT scan reviewed with ER physician. There is a focal right anterior chest wall infection with some air pocket. PHYSICAL EXAMINATION: GENERAL: He is currently alert, oriented, does not seem in acute distress. VITAL SIGNS: Temperature 101.1, heart rate 107, respirations 20, and blood pressure 168/18. HEENT: Normocephalic, not icteric. NECK: Supple. No JVD. No lymphadenopathy. No thyromegaly. CHEST: Clear bilateral. He did have redness and swelling, and induration of his chest wall. IMPRESSION: Chest wall cellulitis, concerned about early necrotizing soft tissue infection, put the patient on vancomycin 15 mg/kg IV piggyback q.12 hours, cefepime 2 g IV piggyback q.8 hours, clindamycin 900 mg IV piggyback q.8 hours. Surgery is consulted. We will make the patient n.p.o. Agree with IV fluid. Surgical debridement as soon as possible. Discussed with the patient. Discussed with the family. Discussed the ER physician. Discussed with surgery. MD RAJINDER Lou/SHERRIE /[id number]
--- NOTE | 2019-11-22 23:04 | Consultation ---
DATE OF CONSULTATION: 11/22/2019 HISTORY OF PRESENT ILLNESS: The patient is a 64-year-old male, presents complaints of pain and swelling in the right anterior chest area for about 4 to 5 days. The patient has had associated fever and poor appetite. He says the swelling has gotten worse. CT of the chest reveals a probable infectious process within the chest wall in the area of deep to the pectoralis major muscle with swelling and crepitus in the area. The patient came to the emergency room. He has been hemodynamically stable with only slight tachycardia, heart rate around 100, the temperature up to 101.1. PAST MEDICAL HISTORY: Significant for cardiac arrhythmias. He has had previous cardiac ablation, history of atrial fibrillation. He has had implanted client coordinator, also has history of hypertension, previous shoulder surgery and knee surgery, previous nephrectomy, history of arthritis secondary to gout, hepatitis C in the past, type 2 diabetes. ALLERGIES: ALLERGY TO MORPHINE. MEDICATIONS AT HOME: 1. Allopurinol, Eliquis, which has been off for about four days. 2. Bumetanide. 3. Belbuca. 4. Vitamin D. 5. Gabapentin. 6. Lisinopril. 7. Metoprolol. 8. Oxycodone. 9. Ambien. FAMILY HISTORY: Noncontributory. SOCIAL HISTORY: The patient does not drink alcohol. Does not smoke cigarettes. REVIEW OF SYSTEMS: As stated above, otherwise was negative. PHYSICAL EXAMINATION: GENERAL: The patient is awake and alert. VITAL SIGNS: Heart rate of 104, blood pressure is normal. HEENT: Sclerae is not icteric. NECK: Slight swelling at the base of the right neck. CARDIAC: Regular rate and rhythm. CHEST WALL: There is erythema and tenderness along the right superior chest wall, infraclavicular area, there is slight crepitus noted. There is no axillary mass. LUNGS: Equal breath sounds are clear bilaterally. ABDOMEN: Soft with no tenderness. No mass. EXTREMITIES: Have no edema. NEUROLOGIC: Grossly intact. LABORATORY DATA: White blood cell count was 8000 with a left shift differential revealed hemoglobin 14, hematocrit 43. Chemistries, lactic acid was mildly elevated initially, but most recent one is normal. BUN and creatinine are normal. ASSESSMENT: A 64-year-old male with right chest wall pain, swelling and tenderness with CT findings suggestive of possible necrotizing infection. I think the patient may have necrotizing infection that needs to be treated emergently. PLAN: Debridement of the area to be done in the operating room today. Procedure was explained to the patient including risks, benefits, alternatives, he understands, he has had the opportunity to ask questions. Thank you for asking me to see Mr. Drummond. MD DEZ Garcia/MODL /[id number]
[2019-11-22] MEDS ORDERED: LAMOTRIGINE100 MG PO (23:19)
[2019-11-22] MEDS ORDERED: TESTOSTERO200 MG/1 M (23:19)
[2019-11-22] MEDS ORDERED: TIZANIDINE HCL4 MG PO (23:19)
[2019-11-22] MEDS ORDERED: POTASSIUM CHLO10 ME1 PO (23:19)
[2019-11-22] MEDS ORDERED: LASIX40 MG PO (23:19)
[2019-11-22] MEDS ORDERED: PNEUMOCOCCAL VACCINE POLYVALENT 23 MCG/0.5 ML VIAL IM SCH (23:34)
[2019-11-22] MEDS ORDERED: INFLUENZA VIRUS VAC SPLIT INJ 0.5 ML SYR IM SCH (23:34)
[2019-11-23] VITALS (7 sets, daily range): BP systolic 127–166; BP diastolic 66–93
--- NOTE | 2019-11-23 00:10 | Operative Report ---
DATE OF PROCEDURE: 11/22/2019 SURGEON: Rolando Paul MD PREOPERATIVE DIAGNOSIS: Deep abscess, right chest wall POSTOPERATIVE DIAGNOSIS: Deep abscess, right chest wall. PROCEDURE: Drainage of deep abscess, right chest wall. BALANCE SCREWHEAD POLISHER: None. ANESTHESIA: General. INDICATIONS AND FINDINGS: The patient is a 64-year-old male who presented with complaints of pain in the right anterior chest for about 5 days with fever. Workup suggested possible necrotizing infection involving the chest wall surgery. There was considerable edema of the pectoralis major muscle; deep to the muscle, there was an area of purulent fluid, which was drained, approximately 6 mL of purulent fluid was drained. The sample was taken for culture and sensitivity. There was no necrotic tissue seen. No necrotizing infection was identified. TECHNIQUE: After adequate general anesthesia, the patient in supine position, the right chest wall was prepped and draped in sterile fashion with Betadine solution. Incision was made over the area of swelling in the right anterior chest, which was inferior to the clavicle, carried down through the subcutaneous tissue to the pectoralis major muscle was seen. There was considerable edema of the subcutaneous tissues and the muscle. Dissection was carried to the inferior aspect of the muscle laterally. There was no purulence seen, but medially close to the sternal border. There was a collection of purulent fluid, which was drained, about 6 mL of purulent fluid was drained. Sample taken for culture and sensitivity. A sample also taken some of the edema fluid in the muscle. There was no necrotic tissue seen. The areas superior to the pectorals major muscle just below the clavicle also examined and there was only edema. No purulence. No necrotic tissue. The area of purulent fluid was drained, was irrigated with saline. A 19-Amharic Jonh drain was placed in this area through a separate stab wound incision. The wound was irrigated further with saline, it was then closed with 3-0 Vicryl subcutaneous tissue and adrian for the skin. Sterile dressing was applied. The patient tolerated the procedure well. Estimated blood loss was 25 mL. There were no complications. All counts were correct. The patient was taken to the recovery room in satisfactory condition. MD DEZ Garcia/MODL /[id number] cc: MD Regan Lou MD
[2019-11-23] MEDS: CLINDAMYCIN 600MG / 50ML 50 ML IV SCH ×2 (02:30→14:55)
[2019-11-23] MEDS: CEFEPIME 2 GM/NS 0.9% 100 ML 100 ML IV SCH ×3 (03:25→21:24)
[2019-11-23] MEDS: VANCOMYCIN 1GM/NS 250 ML 250 ML IV SCH ×2 (04:00→16:45)
[2019-11-23 04:59] LABS: BASOPHILS % 0.3 % (0.0-1.0); HEMATOCRIT 37.4 % (38.2-49.6); LYMPHOCYTES # (AUTO) 0.3 (1.0-3.2); LYMPHOCYTES % 3.8 % (18.0-39.1); MEAN CORPUSCULAR HEMOGLOBIN 29.6 pg (28-32); MEAN CORPUSCULAR HGB CONC 32.1 g/dL (31-35); MEAN CORPUSCULAR VOLUME 92.1 fL (81-99); MONOCYTES # (AUTO) 1.1 (0.2-0.8); MONOCYTES % 13.4 % (4.4-11.3); NEUTROPHILS # (AUTO) 6.5 (2.1-6.9); NEUTROPHILS % 81.7 % (38.7-80.0); PLATELET COUNT 110 x10e3/uL (140-360); RED BLOOD COUNT 4.06 x10e6/uL (4.3-5.7); RED CELL DISTRIBUTION WIDTH 14.5 % (11.7-14.4)
[2019-11-23 05:17] LABS: ANION GAP 13.2 mmol/L (8-16); BLOOD UREA NITROGEN 24 mg/dL (7-26); BUN/CREATININE RATIO 25 (6-25); CALCIUM 9.1 mg/dL (8.4-10.2); CARBON DIOXIDE 26 mmol/L (22-29); CHLORIDE 102 mmol/L (98-107); CREATININE, SERUM 0.95 mg/dL (0.72-1.25); EST GLOMERULAR FILTRATION RATE > 60 ML/MIN (60-); GLUCOSE 184 mg/dL (74-118); POTASSIUM 4.2 mmol/L (3.5-5.1); SODIUM 137 mmol/L (136-145)
[2019-11-23] MEDS: HYDROMORPHONE 1MG/1ML INJ IV PRN ×4 (06:00→20:24)
[2019-11-23] MEDS: INSULIN LISPRO 100 UNIT/1 ML 3ML VIAL SQ SCH ×4 (07:30→21:00)
[2019-11-23] MEDS ORDERED: INSULIN LISPRO 100 UNIT/1 ML 3ML VIAL SQ SCH (07:30)
[2019-11-23 07:50] LABS: EOSINOPHILS % (MANUAL) 1 % (0-7); LYMPHOCYTES % (MANUAL) 7 % (19-48); MONOCYTES % (MANUAL) 14 % (3.4-9.0); NEUTROPHILS % (MANUAL) 78 % (40-74); PLATELET ESTIMATE SLIGHTLY DECREASED; PLATELET MORPHOLOGY COMMENT NORMAL; RBC MORPHOLOGY COMMENT NORMAL
--- NOTE | 2019-11-23 08:15 | History and Physical ---
CHIEF COMPLAINT: A 64-year-old male who came in with a chest wall abscess. HISTORY OF PRESENT ILLNESS: A 64-year-old gentleman with a history of atrial fibrillation, history of multiple neck surgeries, back surgeries, history of hepatitis in the past with history of diabetes, who was in usual state of health until the patient started to have some right-sided chest wall pain and noticed that the development of abscesses on . The patient waited till yesterday and the pain got worse. The patient came to emergency room, was found to have a chest wall abscess, taken down for surgery by Dr. Madai manzo for debridement and necrotic chest wall infection and LORENA drain was placed and the patient is here for further care and IV antibiotics. PAST MEDICAL HISTORY: History of hypertension, history of hyperlipidemia, history of atrial fibrillation, history of chronic depression, history of chronic pain, history of testosterone deficiency, history of diabetes mellitus, and history of gouty arthritis. MEDICATIONS: He takes at home allopurinol 100 mg daily, Eliquis 5 mg twice a day, Bumex 4 mg daily, Lasix 40 mg daily, gabapentin 100 mg four tablets four times a day, lamotrigine 100 mg daily, lisinopril 10 mg daily, metoprolol 50 mg b.i.d., oxycodone, Percocet 10/325 q.6 hours as needed, potassium chloride 10 mEq daily, and testosterone 1 mL q.2 weekly and tizanidine 4 mg daily. ALLERGIES: MORPHINE. PAST SURGICAL HISTORY: As mentioned above, the patient has had multiple laminectomies, nephrectomy, removed one kidney secondary to hypertension in 83, neck surgery, bilateral rotator cuff surgery. The patient also had recent knee injections and multiple back injections. FAMILY HISTORY: Positive for diabetes mellitus, hypertension, hyperlipidemia in the family. SOCIAL HISTORY: He drinks about 6-12 beers per week. No history of smoking. No IV drug abuse. REVIEW OF SYSTEMS: Positive for chest pain in the right side. No nausea. No vomiting. No diarrhea. No constipation. Positive for pain. Positive for arthritis in all joints. Positive for some shortness of breath. No diplopia. No blurry vision. No headaches. The patient also has a history of hepatitis C, treated with gamma interferon in the past. PHYSICAL EXAMINATION: VITAL SIGNS: Temperature is 97.7, pulse of 87, respirations of 22, blood pressure is 140/79, pulse oximetry of 96% on 2 L of oxygen. HEENT: Normocephalic, atraumatic. Pupils are reactive to light and accommodation. The patient's eyes, left eye is matted. CVS: S1 and S2 normal. Regular rate and rhythm at this time. His right-sided incision with clean dry wound. The patient has a LORENA drain. ABDOMEN: Nontender, nondistended. EXTREMITIES: No clubbing, no cyanosis, no edema. Positive for varicose vein bilaterally. Bilateral knees have arthritis. Bilateral hip with tenderness. IMAGING STUDIES: CT chest done yesterday prior to surgery showed a focal right anterior chest wall infection abutting the right sternoclavicular joint without evidence of osteomyelitis. LABORATORY VALUES: White count is 8,000, hemoglobin of 14, hematocrit of 42.9, neutrophil count is 83.3. Chemistry showed lactic acid of 2.4, came down to 1.9. Sodium was 137, potassium of 4.2, BUN of 19, and creatinine of 1.07. AST and ALT were normal. MICROBIOLOGY: Pending. Anaerobic culture and aerobic culture pending from the wound. Blood cultures are also pending. ASSESSMENT: Mr. Supa Drummond is a 64-year-old gentleman with a history of right-sided chest wall abscess close to the sternoclavicular junction, status post surgery, I and D and debridement of necrotic tissue. PLAN: Continue with antibiotics. The patient is currently on vancomycin and cefepime, we will continue the same. The patient has flu vaccine and pneumococcal vaccine, currently on hydrocodone and hydromorphone for pain control. Continue with insulin sliding scale, which will be instituted. Also, we will continue monitoring his pain levels. ID consult has been done and also, the patient will need SCDs for DVT prophylaxis. Hold off on his anticoagulation at this time. Further recommendation per clinical course. We will continue to monitor the patient. MD DICK Ambriz/MODL /[id number]
--- NOTE | 2019-11-23 09:22 | Diagnostic Imaging Report ---
EXAMINATION: CHEST SINGLE (PORTABLE) INDICATION: Shortness of breath COMPARISON: Chest CT of 11/22/2019 FINDINGS: LINES/TUBES:EKG leads overlie the chest. Left chest loop recorder. LUNGS:The lungs are moderately inflated. No focal consolidation or pulmonary edema. PLEURA:No pleural effusion or pneumothorax. MEDIASTINUM:The cardiomediastinal silhouette appears unchanged in size and shape. BONES/SOFT TISSUES:No acute osseous injury. ABDOMEN:No free air under the diaphragm. IMPRESSION: No focal pneumonia or pulmonary edema. Signed by: Emily Pascal MD on 11/23/2019 9:19 AM
--- NOTE | 2019-11-23 14:05 | NUR ---
Visit made by the Spiritual Care Department Pastoral Visitor, Renee Corey. PV provided pastoral presence, prayer, hospitality, and supportive listening. Pastoral Visitor informed pt/family of the scope of [employer] and availability. IVETT DELEON Graduate Advisor Spiritual Care Department O: [phone] Pager: [phone] ([phone] number calling from)
[2019-11-23] MEDS: HYDROCODONE/APAP 7.5MG-325MG 1 EA TAB PO PRN ×2 (14:55→23:01)
--- NOTE | 2019-11-23 19:00 | NUR ---
received pt sitting in bed in semi-fowlers position. pt is alert and oriented x4. Dressing to rt chest dry and intact. LORENA drain charged and intact. LPIV patent- 20g. Respirations even and unlabored. pt voiding per urinal with minimal assistance. Call light within reach. Bed in low position. Bed alarm on. Pt denies pain at this time.
[2019-11-23] MEDS: ONDANSETRON HCL INJ 2MG/ML 2ML 2 MG/ML VIAL IV PRN (20:38)
[2019-11-24] VITALS (8 sets, daily range): BP systolic 123–172; BP diastolic 68–92
[2019-11-24] MEDS: HYDROMORPHONE 1MG/1ML INJ IV PRN ×7 (00:08→23:46)
[2019-11-24] MEDS: CLINDAMYCIN 600MG / 50ML 50 ML IV SCH ×2 (02:13→13:17)
[2019-11-24 05:26] LABS: BASOPHILS # (AUTO) 0.1 (0.0-0.1); BASOPHILS % 0.5 % (0.0-1.0); EOSINOPHILS % 0.1 % (0.0-6.0); HEMATOCRIT 39.2 % (38.2-49.6); HEMOGLOBIN 12.3 g/dL (14.0-18.0); LYMPHOCYTES # (AUTO) 0.6 (1.0-3.2); LYMPHOCYTES % 5.7 % (18.0-39.1); MEAN CORPUSCULAR HEMOGLOBIN 29.8 pg (28-32); MEAN CORPUSCULAR HGB CONC 31.4 g/dL (31-35); MEAN CORPUSCULAR VOLUME 94.9 fL (81-99); MONOCYTES # (AUTO) 1.1 (0.2-0.8); MONOCYTES % 10.9 % (4.4-11.3); NEUTROPHILS # (AUTO) 7.8 (2.1-6.9); NEUTROPHILS % 77.8 % (38.7-80.0); PLATELET COUNT 115 x10e3/uL (140-360); RED BLOOD COUNT 4.13 x10e6/uL (4.3-5.7); RED CELL DISTRIBUTION WIDTH 14.7 % (11.7-14.4)
[2019-11-24] MEDS: CEFEPIME 2 GM/NS 0.9% 100 ML 100 ML IV SCH (05:33)
[2019-11-24 05:48] LABS: ALANINE AMINOTRANSFERASE 22 IU/L (0-55); ALBUMIN 2.3 g/dL (3.5-5.0); ALBUMIN/GLOBULIN RATIO 0.6 (0.8-2.0); ALKALINE PHOSPHATASE 59 IU/L (40-150); ANION GAP 12.7 mmol/L (8-16); BLOOD UREA NITROGEN 25 mg/dL (7-26); BUN/CREATININE RATIO 28 (6-25); CALCIUM 9.4 mg/dL (8.4-10.2); CARBON DIOXIDE 27 mmol/L (22-29); CHLORIDE 100 mmol/L (98-107); EST GLOMERULAR FILTRATION RATE > 60 ML/MIN (60-); GLUCOSE 151 mg/dL (74-118); POTASSIUM 3.7 mmol/L (3.5-5.1); SODIUM 136 mmol/L (136-145)
[2019-11-24] MEDS: VANCOMYCIN 1GM/NS 250 ML 250 ML IV SCH (06:42)
[2019-11-24] MEDS: INSULIN LISPRO 100 UNIT/1 ML 3ML VIAL SQ SCH ×4 (07:30→19:57)
[2019-11-24] MEDS: HYDROCODONE/APAP 7.5MG-325MG 1 EA TAB PO PRN ×3 (07:39→17:00)
--- NOTE | 2019-11-24 08:05 | Progress Note ---
DATE: 11/24/2019 SUBJECTIVE: The patient is a 64-year-old gentleman status post incision and drainage of necrotic tissue on the right anterior chest wall close the sternoclavicular junction. The patient is currently afebrile, feeling pain, apparently cannot move his shoulder secondary to the pain. The patient has to be helped up hard. LORENA drain in place. Otherwise, shortness of breath is better. Chest x-ray done yesterday was within normal limit. The patient has been encouraged to use incentive spirometry, but he is using now. OBJECTIVE: VITAL SIGNS: Temperature is 96.2, pulse 72, respirations of 19, blood pressure is 158/92, pulse oximetry of 97% on 2 L of oxygen. HEENT: Normocephalic, atraumatic. Nasal cannula in place. CVS: S1 and S2 normal. Regular rate and rhythm. ABDOMEN: Nontender, nondistended. EXTREMITIES: No clubbing, no cyanosis, no edema. Positive for varicose veins of lower extremities. SKIN: Anterior chest wall with incisional wound. However, the patient has no drainage on it and there is a LORENA drain with minimal monitoring into bulb. LABORATORY VALUES: Today's white count is 10,000, hemoglobin of 12.3, hematocrit of 39.2, neutrophil count of 77.8, which is down. Chemistry show a sodium of 136, potassium is 3.7, BUN of 25, creatinine of 0.90. Glucoses have been running in the 150 range. ALT and AST normal. ASSESSMENT: Mr. Supa Drummond with: 1. Right-sided chest wall abscess. 2. Status post surgery, I and D. 3. Questionable necrotizing fasciitis. 4. History of nephrectomy. 5. Hypertension. 6. Morbid obesity. 7. Diabetes mellitus. 8. Sleep apnea. PLAN: Continue with antibiotics. Currently, the patient is on vancomycin and cefepime and clindamycin. The patient also has insulin for sliding scale and pain control is by hydromorphone. Further recommendation per clinical course. We will continue to monitor the patient. Microbiology did show Staph aureus and anaerobic aspirate shows Staph aureus identification and susceptibility to follow. Regan Winkler MD ASJ/MODL /[id number]
[2019-11-24] MEDS ORDERED: VANCOMYCIN 1GM/NS 250 ML 250 ML IV ONE (10:30)
--- NOTE | 2019-11-24 12:31 | Progress Note ---
DATE: 11/24/2019 SUBJECTIVE: Mr. Drummond is complaining of pain in his shoulder, could not move the shoulder. He is also having back pain, but he does have history of chronic back pain. He has a drain in place. REVIEW OF SYSTEMS: Otherwise, he is just not feeling well. PHYSICAL EXAMINATION: GENERAL: He is currently alert and oriented. Does not seem to be in acute distress. VITAL SIGNS: Stable, currently afebrile. HEENT: Not icteric. NECK: Supple. CHEST: Clear. COR: S1 and S2. ABDOMEN: Soft. IMPRESSION: 1. Sepsis with Staph aureus bacteremia. Currently on vancomycin. We will push the dose of vancomycin. Follow up trough. Recheck blood cultures. 2. Obtain blood cultures to rule out endocarditis. Discussed with Internal Medicine. 3. Shoulder pain. We will obtain MRI to rule out infected joint. 4. Back pain. We will obtain a MRI of the spine to rule out infection. 5. Abscess of the chest wall, status post drainage. 6. Obesity. 7. Diabetes mellitus. 8. History of nephrectomy, history of hypertension, history of sleep apnea. Discussed with the medical team. We will follow. MD RAJINDER Lou/SHERRIE /[id number]
[2019-11-24] MEDS ORDERED: GADOBENATE DIMEGLUMINE 1 ML IV ONE (13:09)
[2019-11-24] MEDS: APIXABAN 5 MG TABLET PO SCH (17:45)
[2019-11-24] MEDS: METOPROLOL TARTRATE 50 MG TAB PO SCH (17:45)
--- NOTE | 2019-11-24 19:20 | NUR ---
patient received. Patient is resting in bed. Resp even and unlabored. right chest dressing noted, dry and intact with KP drain intact. tele in place. call light within reach. bed low/locked. continue to monitor closely
[2019-11-24] MEDS: VANCOMYCIN HCL 2 GM in SODIUM CHLORIDE 0.9% 500ML 500 ML IV SCH (20:49)
--- NOTE | 2019-11-24 23:23 | Consultation ---
DATE OF CONSULTATION: 11/24/2019 Cardiology Consult Note REASON FOR CONSULT: Bacteremia, Staph aureus. CHIEF COMPLAINT: Right chest abscess. HISTORY OF PRESENT ILLNESS: The patient is a 64-year-old man, history of multiple neck surgeries, back surgeries, hepatitis, diabetes, who presents with spontaneous abscess formation in his right upper chest that was worsening for the past several days initially became excruciating and painful and presented to the ER for this. He also reported fevers and feeling hot and clammy. Blood cultures reviewed 4/4 Staphylococcus aureus. He is currently, status post incision and drainage of the abscess. Denies any chest pain, shortness of breath. No orthopnea or PND. No symptoms of stroke or TIA. PAST MEDICAL HISTORY: As described in the HPI. REVIEW OF SYSTEMS: As per HPI, otherwise negative. SOCIAL HISTORY: Drinks 6 to 12 beers per week. He does not smoke. Does not abuse IV drugs. FAMILY HISTORY: Not contributory. OUTPATIENT MEDICATIONS: Reviewed. ALLERGIES: REVIEWED. ALLERGIC TO MORPHINE. OBJECTIVE: VITAL SIGNS: Temperature 99.4, pulse 79, respiratory rate 17, blood pressure 140/68, saturating 97% on room air. GENERAL: Well developed, well nourished, in no acute distress. CARDIOVASCULAR: Difficult to exam due to body habitus. Regular rate and rhythm. No murmurs, rubs, or gallops. LUNGS: Clear to auscultation anteriorly. LORENA drain in place, right anterior chest wall, tender to palpation. ABDOMEN: Soft, nontender, nondistended. Obese. No masses. NEURO AND PSYCH: Alert and oriented to person, place, and time. Normal affect. INPATIENT MEDICATIONS: Reviewed. LABORATORY DATA: Reviewed. Notable for 4/4 bottles of Staph aureus bacteremia. ASSESSMENT AND PLAN: Staphylococcus aureus bacteremia. PLAN: Echocardiogram reviewed. There were no obvious vegetations on the valve. However, study was of poor quality due to patient's body habitus with blood cultures remain positive. We will plan on doing a transesophageal echocardiogram to rule out endocarditis likely on Friday once acute phase of infection has been treated. MD MICHAEL Greene/SHERRIE /[id number]
[2019-11-25] VITALS (8 sets, daily range): BP systolic 124–163; BP diastolic 64–90
[2019-11-25] MEDS: CLINDAMYCIN 600MG / 50ML 50 ML IV SCH (02:43)
[2019-11-25] MEDS: HYDROMORPHONE 1MG/1ML INJ IV PRN ×6 (03:00→21:47)
--- NOTE | 2019-11-25 07:00 | NUR ---
BEDSIDE SHIFT REPORT RECEIVED FROM THE KNIFE OPERATOR RN. EDUCATED PT ABOUT FALL PRECAUTIONS. CALL LIGHT WITH IN EASY REACH. INSTRUCTED PT TO USE CALL LIGHT FOR ALL THE NEEDS. PT VERBALIZED UNDERSTANDING. BED IS LOW AND LOCKED. SIDE RAILS X2. BED ALARM IS ON. PT DENIES NEEDS AT THIS TIME.
[2019-11-25] MEDS: HYDROCODONE/APAP 7.5MG-325MG 1 EA TAB PO PRN ×2 (08:25→16:45)
[2019-11-25] MEDS: INSULIN LISPRO 100 UNIT/1 ML 3ML VIAL SQ SCH ×4 (08:30→21:00)
[2019-11-25] MEDS: APIXABAN 5 MG TABLET PO SCH ×2 (08:57→17:50)
[2019-11-25] MEDS: METOPROLOL TARTRATE 50 MG TAB PO SCH ×2 (08:57→17:50)
[2019-11-25] MEDS: ALLOPURINOL 300 MG TAB PO SCH (08:58)
[2019-11-25] MEDS: GABAPENTIN 400 MG CAP PO SCH (08:58)
[2019-11-25] MEDS: LISINOPRIL 10 MG TAB PO SCH (08:58)
--- NOTE | 2019-11-25 09:01 | Diagnostic Imaging Report ---
MRI of the right shoulder with and without contrast. History: Shoulder pain. Infection. Chest wall abscess. Comparison: CT chest November 22, 2019 Technique: Multiplanar multisequence MRI of the right shoulder with and without IV contrast. 20 cc IV gadolinium contrast material was administered. Findings: Rotator cuff: Postsurgical change to the rotator cuff with full-thickness tear involving the anterior fibers of the supraspinatus and infraspinatus tendons at the humeral insertion site. Retraction of the torn fibers to the level of the glenoid and moderate/severe muscle atrophy as seen on sagittal image 21. Additionally, there is a full-thickness subscapularis tear with retraction to the level of the glenoid and moderate/severe muscle atrophy. The teres minor tendon is intact. Postsurgical screw tracts are seen through the humeral head. Osseous acromion complex: Type II acromion with mild lateral downsloping. Moderate degenerative arthrosis at the acromioclavicular joint with undersurface spurring and narrowing of the supraspinatus tendon outlet. Mild subacromial/subdeltoid bursitis. Glenohumeral joint: Circumferential degenerative type tearing of the labrum. Articular cartilage fraying and deep fissuring in the glenohumeral joint with mild underlying bone marrow edema and subchondral cystic change. Scarring and thickening in the axillary pouch. The humeral head is well-seated in the glenoid fossa. Biceps tendon: Prior biceps tendinosis Other findings: Negative for muscle denervation or osseous fracture. Marked soft tissue edema predominantly about the anterior shoulder extending centrally towards the sternum which is beyond the [id number] of this exam. No abnormal enhancing masses are seen about the right shoulder. Impression: Marked soft tissue edema predominantly about the anterior shoulder extending centrally towards the sternum which is beyond the [id number] of this exam. No abnormal enhancing masses are seen about the right shoulder. Postsurgical change to the rotator cuff with full-thickness tear involving the anterior fibers of the supraspinatus and infraspinatus tendons at the humeral insertion site. Retraction of the torn fibers to the level of the glenoid and moderate/severe muscle atrophy. Full-thickness subscapularis tear with retraction to the level of the glenoid and moderate/severe muscle atrophy. Degenerative arthrosis in the acromioclavicular and glenohumeral joints. Signed by: Dr. Enrike Larsen M.D. on 11/25/2019 8:58 AM
--- NOTE | 2019-11-25 09:30 | NUR ---
PT ON VANCOMYCIN 2 GM. GET VANC TROUGH BEFORE THIRD DOSE PER PEG ESPINOSA.
[2019-11-25] MEDS: VANCOMYCIN HCL 2 GM in SODIUM CHLORIDE 0.9% 500ML 500 ML IV SCH (09:57)
[2019-11-25] MEDS: LAMOTRIGINE 25 MG TAB PO SCH (09:57)
--- NOTE | 2019-11-25 10:30 | Progress Note ---
DATE: 11/25/2019 SUBJECTIVE: The patient came in with right chest wall abscess, taken certainly to surgery to rule out necrotizing fasciitis. The patient has grown Staphylococcus aureus in the wound and echocardiogram was done yesterday by Cardiology to rule out bacterial endocarditis and was negative. The patient is scheduled for a possible IVANA tomorrow after when patient count is better. Currently continues to have shoulder pain, was scheduled for a back MRI and also MRI of the shoulder. The patient is able to get through the MRA of the shoulder, but from pain restriction the patient is not able to get back MRI. Currently, otherwise, very weak and depressed. No chest pain. No shortness of breath. Continues to have pain and is controlled by Dilaudid as needed. OBJECTIVE: VITAL SIGNS: Temperature is 97.6, T-max 98.9, pulse of 76, respirations of 18, blood pressure is 135/90, and pulse oximetry of 96%. HEENT: Normocephalic and atraumatic. Pupils are reactive. CVS: S1 and S2 normal. CHEST: Right chest wall with drain in status post incision with a LORENA drain. ABDOMEN: Nontender and nondistended. EXTREMITIES: No clubbing and no cyanosis. Positive for varicose veins and trace edema. IMAGING STUDY: Shoulder MRI has not been read yet. MICROBIOLOGY: Staph aureus initial growth sensitivity noted. The patient has sensitivity to vancomycin. LABORATORY DATA: No white count was done today and no CMP was done today. We will repeat that tomorrow. ASSESSMENT: 1. Right-sided chest wall abscess with Staphylococcus aureus growth. 2. Morbid obesity. 3. History of chronic back pain. 4. History of hypertension. 5. History of nephrectomy and hypertension. PLAN: 1. Continue to monitor the patient. The patient is currently on antibiotics, did talk to Infectious Disease team. Plan was to continue the antibiotics for 6 weeks minimum. 2. Continue with apixaban for his atrial fibrillation, lisinopril 10 mg for blood pressure and will increase that to 20 mg to keep pressures down. Further recommendation per clinical course. We will continue to monitor the patient and continue his vancomycin levels. For further information, look into the chart. Regan Winkler MD ASJ/MODL /[id number]
--- NOTE | 2019-11-25 11:30 | NUR ---
Spoke to JESÚS Perry with Dr. Forrester. He just changed pt's abx to Ancef. States pt won't be discharging anytime soon. Per cardiology note, pending IVANA, possibly on Friday.
[2019-11-25] MEDS ORDERED: CEFAZOLIN SOD 2 GM in SODIUM CHLORIDE 0.9% 100 ML 100 ML IV SCH (14:00)
[2019-11-25] MEDS ORDERED: CEFAZOLIN SOD 1 GM/NS 50ML 250 ML IV SCH (14:00)
[2019-11-25] MEDS: CEFAZOLIN SOD 2 GM/D5W 50ML 50 ML IV SCH ×2 (15:00→21:49)
[2019-11-25] MEDS ORDERED: SODIUM CHLORIDE 0.9% 250ML 250 ML ONE (21:38)
[2019-11-26] VITALS (8 sets, daily range): BP systolic 142–176; BP diastolic 66–82
[2019-11-26] MEDS: HYDROMORPHONE 1MG/1ML INJ IV PRN ×6 (01:09→22:05)
[2019-11-26] MEDS: ACETAMINOPHEN 325 MG TAB PO PRN (04:57)
[2019-11-26 05:13] LABS: BASOPHILS # (AUTO) 0.1 (0.0-0.1); BASOPHILS % 0.8 % (0.0-1.0); EOSINOPHILS # (AUTO) 0.1 (0.0-0.4); EOSINOPHILS % 0.6 % (0.0-6.0); HEMATOCRIT 39.2 % (38.2-49.6); HEMOGLOBIN 12.5 g/dL (14.0-18.0); LYMPHOCYTES # (AUTO) 1.1 (1.0-3.2); LYMPHOCYTES % 7.4 % (18.0-39.1); MEAN CORPUSCULAR HEMOGLOBIN 29.6 pg (28-32); MEAN CORPUSCULAR HGB CONC 31.9 g/dL (31-35); MEAN CORPUSCULAR VOLUME 92.9 fL (81-99); MONOCYTES # (AUTO) 1.4 (0.2-0.8); MONOCYTES % 9.7 % (4.4-11.3); NEUTROPHILS # (AUTO) 9.9 (2.1-6.9); NEUTROPHILS % 67.8 % (38.7-80.0); PLATELET COUNT 219 x10e3/uL (140-360); RED BLOOD COUNT 4.22 x10e6/uL (4.3-5.7); RED CELL DISTRIBUTION WIDTH 14.8 % (11.7-14.4)
[2019-11-26] MEDS: CEFAZOLIN SOD 2 GM/D5W 50ML 50 ML IV SCH ×3 (05:23→22:00)
[2019-11-26 05:29] LABS: ANION GAP 14.2 mmol/L (8-16); BLOOD UREA NITROGEN 22 mg/dL (7-26); BUN/CREATININE RATIO 26 (6-25); CALCIUM 9.2 mg/dL (8.4-10.2); CARBON DIOXIDE 28 mmol/L (22-29); CHLORIDE 98 mmol/L (98-107); CREATININE, SERUM 0.85 mg/dL (0.72-1.25); EST GLOMERULAR FILTRATION RATE > 60 ML/MIN (60-); GLUCOSE 174 mg/dL (74-118); POTASSIUM 4.2 mmol/L (3.5-5.1); SODIUM 136 mmol/L (136-145)
--- NOTE | 2019-11-26 07:00 | NUR ---
RCD PT AT BED PT IS ALERT AND ORIENTED PT RESTING ON BED NO SIGNS OF ANY DISTRESS NOTED IV PATENT BY SALINE PT NPO FOR PROCEDURE FLUSH BED LOW AND LOCKED CALL LIGHT IN REACH
[2019-11-26] MEDS: INSULIN LISPRO 100 UNIT/1 ML 3ML VIAL SQ SCH ×4 (07:30→22:00)
--- NOTE | 2019-11-26 08:04 | Progress Note ---
DATE: 11/25/2019 Cardiology Progress Note OBJECTIVE: VITAL SIGNS: Temperature afebrile, pulse 84, respiratory rate 20, blood pressure 124/78, saturating 97% on room air. GENERAL: Middle-aged man, well developed, well nourished, no acute distress. CARDIOVASCULAR: Regular rate and rhythm. No murmurs, rubs, or gallops. LUNGS: Clear to auscultation bilaterally. ABDOMEN: Soft, nontender, nondistended. NEURO AND PSYCH: Alert and oriented to person, place, time. Normal affect. INPATIENT MEDICATIONS: Reviewed. LABORATORY DATA: Reviewed. TELEMETRY DATA: Reviewed, shows normal sinus rhythm. ASSESSMENT/PLAN: 1. Staph aureus bacteremia. 2. Atrial fibrillation. PLAN: Plan for a IVANA tomorrow to evaluate for endocarditis. Otherwise, continue metoprolol and apixaban for atrial fibrillation. Thank you for this consult. We will continue. MD MICHAEL Greene/SHERRIE /[id number]
[2019-11-26] MEDS: GABAPENTIN 400 MG CAP PO SCH (09:00)
--- NOTE | 2019-11-26 09:09 | Progress Note ---
DATE: 11/26/2019 SUBJECTIVE: A 64-year-old gentleman with a history of right anterior chest wall abscess status post incision and drainage with growth of Staphylococcus aureus. Wound culture was positive for Staph aureus. The patient is on cefazolin changed from vancomycin. The patient is also on hydromorphone for pain control, back on his apixaban and metoprolol for rate control for history of atrial fibrillation. Currently, no chest pain. Complains of some right shoulder pain and also movement restriction secondary to pain. Drain in place. OBJECTIVE: VITAL SIGNS: Temperature is 97.0, pulse of 87, respirations of 20, blood pressure is 163/82, and pulse oximetry of 92%. HEENT: Normocephalic and atraumatic. Pupils are reactive. CVS: S1 and S2 normal. Regular rhythm. ABDOMEN: Nontender and nondistended. EXTREMITIES: No clubbing, no cyanosis, no edema. CHEST: Right anterior chest wall with incision clean and dry. The patient has a LORENA drain tube draining very minimal amount of fluids. LABORATORY DATA: White count is 14,000 up a bit, hemoglobin of 12.5, and hematocrit of 39.2. Chemistry, sodium of 136, potassium of 4.2, BUN of 22, and creatinine 0.85. Glucoses are running in the 150s to 160s. Microbiology as noted above. Staphylococcus aureus sensitive to cefazolin. ASSESSMENT: Mr. Supa Drummond with: 1. Right anterior chest wall abscess Staphylococcus aureus on cefazolin. Continue the same. The patient had shoulder MRI to rule out extension to the shoulder. No signs of infection in the right shoulder noted as per MRI post surgical changes and degenerative arthrosis seen. 2. Hypertension. 3. Hyperlipidemia. 4. Morbid obesity and history of sleep apnea. PLAN: The patient is scheduled to have IVANA today. The patient will need 6 weeks of antibiotics. The patient will need a PICC line placed in. Further recommendation per clinical course. We discussed this with the patient. The patient is aware of all his conditions. MD DICK Ambriz/TRIPL /[id number]
[2019-11-26] MEDS ORDERED: BENZOCAINE 20% SPR 60 ML CAN ONE (09:51)
[2019-11-26] MEDS ORDERED: SODIUM CHLORIDE 0.9% 1000ML 1,000 ML ONE (09:51)
--- NOTE | 2019-11-26 10:05 | NUR ---
PT WENT TO PROCEDURE IN SAFE CONDITION
--- NOTE | 2019-11-26 11:11 | NUR ---
PT BACK AFTER PROCEDURE PT IS ALERT AND ORIENTED VITALS CHECKED RESTING ON BED BED LOW AND LOCKED CALL LIGHT IN REACH
--- NOTE | 2019-11-26 11:40 | NUR ---
PT REFUSED MRI SPINE NOTIFIED ALL PA
[2019-11-26] MEDS: LAMOTRIGINE 25 MG TAB PO SCH (11:44)
[2019-11-26] MEDS: METOPROLOL TARTRATE 50 MG TAB PO SCH ×2 (11:44→17:00)
[2019-11-26] MEDS: LISINOPRIL 10 MG TAB PO SCH (11:44)
[2019-11-26] MEDS: APIXABAN 5 MG TABLET PO SCH ×2 (11:44→17:00)
[2019-11-26] MEDS: ALLOPURINOL 300 MG TAB PO SCH (11:44)
[2019-11-26] MEDS ORDERED: PROPOFOL IV EMULSION 10 MG/ML 20 ML VIAL ONE (13:36)
[2019-11-26] MEDS ORDERED: LIDOCAINE HCL 2% LOCAL INJ 5 ML SDV VIAL INJ ONE (13:36)
--- NOTE | 2019-11-26 15:00 | NUR ---
Dr. Forrester said he's working on getting outpt abx set up thru his office.
[2019-11-26] MEDS: HYDROCODONE/APAP 7.5MG-325MG 1 EA TAB PO PRN ×2 (15:15→23:05)
--- NOTE | 2019-11-26 16:12 | Diagnostic Imaging Report ---
Chest, portable AP view History: Line placement Comparison: 11/23/2019 IMPRESSION: Left upper cavity PICC terminates in the SVC. The heart is unchanged in size and configuration. Bibasilar atelectasis is present. Surgical drain and adrian project over the right axillary region. There is no pleural effusion or pneumothorax. Signed by: Jony Koenig MD on 11/26/2019 4:09 PM
[2019-11-26] MEDS: ONDANSETRON HCL INJ 2MG/ML 2ML 2 MG/ML VIAL IV PRN (17:50)
--- NOTE | 2019-11-26 19:00 | NUR ---
PAGED DR AYALA TO NOTIFY THE BLOOD CS REPORT AND LEFT THE MESSAGE
--- NOTE | 2019-11-26 19:00 | NUR ---
PT RESTING ON BED BED SIDE REPORT GIVEN TO ONCOMING NURSE
--- NOTE | 2019-11-26 19:00 | NUR ---
Patient visited in room during nursing rounds. Patient alert and oriented x3. Ambulatory in room with standby assist prn. S/P incision and drainage of right upper chest abscess. Surgical incision on right upper chest with adrian and open to air. LORENA drain in place. Call valdez within reach.
--- NOTE | 2019-11-26 19:57 | NUR ---
Called Dr. Forrester and informed of blood culture result: gram positive cocci in clusters. MD aware and no new orders given.
--- NOTE | 2019-11-26 23:09 | Progress Note ---
DATE: 11/26/2019 Cardiology Progress Note SUBJECTIVE: He had a IVANA done today showed no endocarditis. OBJECTIVE: VITAL SIGNS: Temperature afebrile, pulse 75, respiratory rate 18, blood pressure 176/75, saturating 97% on room air. GENERAL: Well developed, well nourished in no acute distress. CARDIOVASCULAR: Regular rate and rhythm. No murmurs, rubs, or gallops. LUNGS: Clear to auscultation bilaterally. ABDOMEN: Obese, soft, nontender, nondistended. NEURO AND PSYCH: Alert and oriented to person, place, and time. Normal affect. INPATIENT MEDICATIONS: Reviewed. LABORATORY DATA: Reviewed. TELEMETRY DATA: Reviewed, shows normal sinus rhythm. ASSESSMENT: 1. Staph aureus bacteremia. 2. History of atrial fibrillation, status post ablation. PLAN: He had a IVANA done today showed no evidence of endocarditis. Continue antibiotics per ID. The patient has an ILR in place. If not concerned for persistent infection or bacteremia, the ILR will need to be explanted. Thank you for this consult. We will continue to follow closely. Continue home medications for atrial fibrillation. MD MICHAEL Greene/SHERRIE /[id number]
[2019-11-27] VITALS (8 sets, daily range): BP systolic 139–185; BP diastolic 65–90
[2019-11-27] MEDS: HYDROMORPHONE 1MG/1ML INJ IV PRN ×7 (01:30→21:07)
[2019-11-27 05:27] LABS: BASOPHILS # (AUTO) 0.1 (0.0-0.1); BASOPHILS % 0.7 % (0.0-1.0); EOSINOPHILS # (AUTO) 0.1 (0.0-0.4); EOSINOPHILS % 0.7 % (0.0-6.0); HEMATOCRIT 36.9 % (38.2-49.6); HEMOGLOBIN 11.5 g/dL (14.0-18.0); LYMPHOCYTES % 6.5 % (18.0-39.1); MEAN CORPUSCULAR HEMOGLOBIN 29.5 pg (28-32); MEAN CORPUSCULAR HGB CONC 31.2 g/dL (31-35); MEAN CORPUSCULAR VOLUME 94.6 fL (81-99); MONOCYTES # (AUTO) 1.5 (0.2-0.8); MONOCYTES % 10.1 % (4.4-11.3); NEUTROPHILS # (AUTO) 10.2 (2.1-6.9); NEUTROPHILS % 68.8 % (38.7-80.0); PLATELET COUNT 216 x10e3/uL (140-360); RED CELL DISTRIBUTION WIDTH 14.8 % (11.7-14.4)
[2019-11-27] MEDS: CEFAZOLIN SOD 2 GM/D5W 50ML 50 ML IV SCH ×3 (06:14→21:06)
--- NOTE | 2019-11-27 07:00 | NUR ---
RCD PT AT BED PT IS ALERT AND ORIENTED PT RESTING ON BED NO SIGNS OF ANY DISTRESS NOTED IV PATENT BY SALINE FLUSH BED LOW AND LOCKED CALL LIGHT IN REACH
[2019-11-27 07:25] LABS: EOSINOPHILS % (MANUAL) 1 % (0-7); LYMPHOCYTES % (MANUAL) 12 % (19-48); MONOCYTES % (MANUAL) 10 % (3.4-9.0); NEUTROPHILS % (MANUAL) 77 % (40-74); PLATELET ESTIMATE ADEQUATE; PLATELET MORPHOLOGY COMMENT NORMAL; RBC MORPHOLOGY COMMENT NORMAL
[2019-11-27] MEDS: INSULIN LISPRO 100 UNIT/1 ML 3ML VIAL SQ SCH ×4 (07:30→20:56)
[2019-11-27] MEDS: LISINOPRIL 10 MG TAB PO SCH (09:00)
[2019-11-27] MEDS: GABAPENTIN 400 MG CAP PO SCH (09:00)
[2019-11-27] MEDS: LAMOTRIGINE 25 MG TAB PO SCH (09:00)
[2019-11-27] MEDS: APIXABAN 5 MG TABLET PO SCH ×2 (09:00→17:00)
[2019-11-27] MEDS: METOPROLOL TARTRATE 50 MG TAB PO SCH ×2 (09:00→17:00)
[2019-11-27] MEDS: ALLOPURINOL 300 MG TAB PO SCH (09:00)
--- NOTE | 2019-11-27 09:11 | Progress Note ---
DATE: 11/27/2019 SUBJECTIVE: This is a man, who came in with right anterior chest wall abscess. The patient is status post incision and drainage. Microbiology from the wound shows Staph aureus. The patient has been on antibiotics. Currently, on Ancef. Other medications include hydromorphone for pain control, the patient is also on metoprolol 50 mg twice a day, Apixaban for atrial fibrillation, and gabapentin 400 mg as scheduled for neuropathy. The patient has history of diabetes and nephrectomy. OBJECTIVE: VITAL SIGNS: Temperature is 97.3, pulse of 76, respirations of 18, and blood pressure is 139/77. HEENT: Normocephalic and atraumatic. Pupils are reactive to light and accommodation. CVS: S1 and S2 normal. Regular rate and rhythm. ABDOMEN: Nontender, nondistended. EXTREMITIES: No clubbing. No cyanosis. Positive for varicose veins, anterior chest wall with incision, LORENA drain in place. The patient has surrounding erythema, otherwise normal. ASSESSMENT: Mr. Supa Drummond with: 1. Staph aureus growth in a blood culture. 2. Sepsis. 3. Bacteremia. 4. Hypertension. 5. Hyperlipidemia. 6. Morbid obesity with sleep apnea. The patient had a IVANA yesterday. Report was not available. We will look into the chart. Further recommendation per clinical course. Continue antibiotics. MD DICK Ambriz/TRIPL /[id number]
[2019-11-27] MEDS: ONDANSETRON HCL INJ 2MG/ML 2ML 2 MG/ML VIAL IV PRN ×2 (11:25→18:00)
--- NOTE | 2019-11-27 17:27 | NUR ---
Nutrition Screen Note RD Recommendation for Physician: -Continue current diet as ordered Plan of Care: RD following, monitoring for tolerance and adequacy Nutrition reason for involvement: LOS Primary Diagnose(s): Chest wall abscess PMH: DM, HTN, HLD Ht: 71in Wt: 275lb BMI: 38.4kg/m2 IBW: 172lb +/- 10% RD Assessment: (11/27) Chart reviewed. Labs and meds reviewed. 64yo M, who was admitted for chest wall abscess. Visited pt in the room. Pt reported fair appetite with 75-100% recorded PO intake. Pt denied any nausea or vomiting. LBM 11/26. Pt denied any chewing or swallowing issue. Weight has been stable. No other complains during my time of visit. Will continue to monitor and follow. Current Diet: ADA 1600 Malnutrition Evaluation (11/27/2019) The patient does not meet criteria for a specified degree of malnutrition at this time. Will re-evaluate at follow-up as appropriate. Diet Education Needs Assessment: Diet education not indicated. Nutrition Care Level: low Signed: Gisselle Rees, MS, RD, LD
--- NOTE | 2019-11-27 17:57 | Progress Note ---
DATE: 11/27/2019 SUBJECTIVE: The patient denies chest pain or shortness of breath. OBJECTIVE: VITAL SIGNS: Temperature 98.3 degrees, pulse 72, respiratory rate 16, blood pressure 149/76, oxygen saturation 98% on room air. GENERAL: Awake, alert, in no acute distress. LUNGS: Clear to auscultation bilaterally. No wheeze or crackles. CARDIOVASCULAR: Normal rate. Regular rhythm. No murmur. Normal S1, S2. Surgical incision noted on the right chest. ABDOMEN: Soft and nontender. EXTREMITIES: No edema. NEURO: Nonfocal exam. CARDIAC MEDICATIONS: Metoprolol tartrate 50 mg p.o. b.i.d., lisinopril 10 mg p.o. daily, apixaban 5 mg p.o. b.i.d. LABORATORY DATA: WBC 14.88, hemoglobin 11.5, hematocrit 36.9, platelets 216. IMPRESSION: 1. Staphylococcus aureus bacteremia. 2. History of atrial fibrillation, status post ablation. 3. Hypertension. 4. Hyperlipidemia. 5. Morbid obesity. RECOMMENDATIONS: The patient had IVANA performed yesterday without evidence of endocarditis. Antibiotics per Infectious Disease. The patient does have an ILR in place. If he has persistent bacteremia or concern for infection, this will need to be explanted. Continue current cardiac medications. If blood pressure remains elevated, we will need to increase antihypertensive therapy. Continue Eliquis for CVA prophylaxis. Thank you for this consult. We will continue to follow. Antia Jenkins MD ABS/MODL /[id number]
--- NOTE | 2019-11-27 18:39 | NUR ---
PT RESTING ON BED BED SIDE REPORT GIVEN TO ONCOMING NURSE
[2019-11-27] MEDS: HYDROCODONE/APAP 7.5MG-325MG 1 EA TAB PO PRN (19:56)
[2019-11-28] VITALS (8 sets, daily range): BP systolic 124–177; BP diastolic 68–96
[2019-11-28] MEDS: HYDROMORPHONE 1MG/1ML INJ IV PRN ×6 (02:57→20:30)
[2019-11-28] MEDS: HYDROCODONE/APAP 7.5MG-325MG 1 EA TAB PO PRN ×2 (05:03→19:10)
[2019-11-28] MEDS: CEFAZOLIN SOD 2 GM/D5W 50ML 50 ML IV SCH ×3 (06:07→22:04)
[2019-11-28] MEDS: INSULIN LISPRO 100 UNIT/1 ML 3ML VIAL SQ SCH ×4 (07:30→20:35)
[2019-11-28] MEDS: ACETAMINOPHEN 325 MG TAB PO PRN (07:43)
[2019-11-28] MEDS: ALLOPURINOL 300 MG TAB PO SCH (09:00)
[2019-11-28] MEDS: METOPROLOL TARTRATE 50 MG TAB PO SCH ×2 (09:00→17:00)
[2019-11-28] MEDS: LISINOPRIL 10 MG TAB PO SCH (09:00)
[2019-11-28] MEDS: APIXABAN 5 MG TABLET PO SCH ×2 (09:00→17:00)
[2019-11-28] MEDS: LAMOTRIGINE 25 MG TAB PO SCH (09:00)
[2019-11-28] MEDS: GABAPENTIN 400 MG CAP PO SCH (09:00)
--- NOTE | 2019-11-28 10:59 | Progress Note ---
DATE: 11/28/2019 SUBJECTIVE: The patient came in with anterior chest wall abscess, status post incision and drainage with LORENA tube. The patient grew out Staph aureus and diagnosis of sepsis, pain is an ensuing problem. The patient has poor pain control. No chest pain. No shortness of breath, but in all in all feeling better except for pain control. OBJECTIVE: VITAL SIGNS: Temperature is 97.3, pulse of 81, respirations 17, and blood pressure is 142/90. HEENT: Normocephalic and atraumatic. Pupils are reactive. CVS: S1 and S2 normal. Regular rate and rhythm. ABDOMEN: Nontender, nondistended. CHEST: Anterior chest wall with abscess with LORENA drain present. EXTREMITIES: The patient also has a PICC line present in the left upper extremity. Extremities otherwise, no clubbing, no cyanosis. Positive for varicose veins. LABORATORY VALUES: White cell count was down to 14.8 yesterday. Chemistries today were normal 11/26/2019. MICROBIOLOGY: Noted Staphylococcus aureus. The patient is currently on cefazolin. He is only on cefazolin. ASSESSMENT AND PLAN: Mr. Supa Drummond with, 1. Sepsis, bacteremia. Plan continuance on cefazolin. The patient will need IV antibiotics for 6-8 weeks. 2. Status post IVANA and echocardiogram with no vegetation. 3. History of atrial fibrillation, continue apixaban. 4. Hypertension. 5. Hyperlipidemia. 6. Diabetes. Continue on current medication. Further recommendation per clinical course. The patient's labs will be done tomorrow for followup. MD DICK Ambriz/MODL /[id number]
--- NOTE | 2019-11-28 18:39 | NUR ---
PT RESTING ON BED BED SIDE REPORT GIVEN TO ONCOMING NURSE
--- NOTE | 2019-11-28 19:11 | Progress Note ---
DATE: 11/28/2019 Cardiology Progress Note SUBJECTIVE: The patient denies chest pain or shortness of breath. OBJECTIVE: VITAL SIGNS: Temperature 97.1 degrees, pulse 66, respiratory rate 18, blood pressure 124/76, and oxygen saturation 96% on room air. GENERAL: Awake, alert, in no acute distress. LUNGS: Clear to auscultation bilaterally. No wheezes or crackles. CARDIOVASCULAR: Normal rate. Regular rhythm. No murmur. Normal S1 and S2. Surgical incision on the right chest. ABDOMEN: Soft and nontender. EXTREMITIES: No edema. NEURO: Nonfocal exam. CARDIAC MEDICATIONS: Metoprolol tartrate 50 mg p.o. b.i.d., lisinopril 10 mg p.o. daily, and apixaban 5 mg p.o. b.i.d. LABORATORY DATA: None today. IMPRESSION: 1. Staphylococcus aureus bacteremia. 2. History of atrial fibrillation, status post ablation. 3. Hypertension. 4. Hyperlipidemia. 5. Morbid obesity. RECOMMENDATIONS: The patient had IVANA performed without evidence of endocarditis. Antibiotics per Infectious Disease. The patient does have an ILR in place. If he has persistent bacteremia or concern for infection, this will need to be explanted. Continue current cardiac medications. Continue Eliquis for CVA prophylaxis. Blood pressure is labile. We will increase lisinopril. Thank you for this consult. We will continue to follow. Anita Jenkins MD ABS/MODL /[id number]
[2019-11-29] VITALS (9 sets, daily range): BP systolic 129–191; BP diastolic 64–89
[2019-11-29] MEDS: HYDROMORPHONE 1MG/1ML INJ IV PRN ×7 (01:50→22:57)
[2019-11-29] MEDS ORDERED: SODIUM CHLORIDE 0.9% 250ML 250 ML ONE (04:47)
[2019-11-29 05:13] LABS: BASOPHILS # (AUTO) 0.1 (0.0-0.1); BASOPHILS % 0.7 % (0.0-1.0); EOSINOPHILS # (AUTO) 0.1 (0.0-0.4); EOSINOPHILS % 0.6 % (0.0-6.0); HEMATOCRIT 35.5 % (38.2-49.6); LYMPHOCYTES # (AUTO) 1.1 (1.0-3.2); LYMPHOCYTES % 6.8 % (18.0-39.1); MEAN CORPUSCULAR HEMOGLOBIN 29.5 pg (28-32); MEAN CORPUSCULAR VOLUME 95.2 fL (81-99); MONOCYTES # (AUTO) 1.4 (0.2-0.8); MONOCYTES % 9.2 % (4.4-11.3); NEUTROPHILS # (AUTO) 11.1 (2.1-6.9); NEUTROPHILS % 71.2 % (38.7-80.0); PLATELET COUNT 244 x10e3/uL (140-360); RED BLOOD COUNT 3.73 x10e6/uL (4.3-5.7); RED CELL DISTRIBUTION WIDTH 14.6 % (11.7-14.4)
[2019-11-29] MEDS: CEFAZOLIN SOD 2 GM/D5W 50ML 50 ML IV SCH ×3 (05:25→21:17)
[2019-11-29 05:33] LABS: ANION GAP 13.5 mmol/L (8-16); BLOOD UREA NITROGEN 27 mg/dL (7-26); BUN/CREATININE RATIO 26 (6-25); CALCIUM 8.5 mg/dL (8.4-10.2); CARBON DIOXIDE 29 mmol/L (22-29); CHLORIDE 96 mmol/L (98-107); CREATININE, SERUM 1.02 mg/dL (0.72-1.25); EST GLOMERULAR FILTRATION RATE > 60 ML/MIN (60-); GLUCOSE 138 mg/dL (74-118); SODIUM 133 mmol/L (136-145)
[2019-11-29 05:54] LABS: POTASSIUM 5.5 mmol/L (3.5-5.1)
--- NOTE | 2019-11-29 06:15 | NUR ---
Dr. Beltran notified of high Potassium result. New orders received.
[2019-11-29] MEDS: INSULIN LISPRO 100 UNIT/1 ML 3ML VIAL SQ SCH ×4 (07:30→21:17)
--- NOTE | 2019-11-29 07:45 | NUR ---
change of shift report received from RN, pt awake, alert, no signs of distress. LORENA drain intact with minimal drainage noted.
[2019-11-29] MEDS: LAMOTRIGINE 25 MG TAB PO SCH (08:26)
[2019-11-29] MEDS: METOPROLOL TARTRATE 50 MG TAB PO SCH ×2 (08:26→17:38)
[2019-11-29] MEDS: APIXABAN 5 MG TABLET PO SCH ×2 (08:26→17:38)
[2019-11-29] MEDS: GABAPENTIN 400 MG CAP PO SCH (08:27)
[2019-11-29] MEDS: ALLOPURINOL 300 MG TAB PO SCH (08:27)
[2019-11-29] MEDS ORDERED: LISINOPRIL 10 MG TAB PO SCH (09:00)
--- NOTE | 2019-11-29 09:49 | Progress Note ---
DATE: 11/29/2019 SUBJECTIVE: The patient is here for right anterior wall chest abscess, status post I and D. The patient has a LORENA tube and has not had surgery today. No chest pain or shortness of breath. No nausea, vomiting, or diarrhea. Pain is in joints. The patient complains of pain 8/10 in intensity, but this is baseline for him. OBJECTIVE: VITAL SIGNS: Temperature is 98.5, pulse is 76, respirations of 20, blood pressure is 143/89, pulse oximetry of 94%. HEENT: Normocephalic and atraumatic. Pupils are reactive to light and accommodation. CVS: S1 and S2 normal. Regular rate and rhythm. Right anterior chest wall with incision wound, clean and dry. EXTREMITIES: No clubbing, no cyanosis, trace edema. MICROBIOLOGY: Staphylococcus in blood cultures. ASSESSMENT: 1. Sepsis/bacteremia. Continue cefazolin. The patient needs 6-8 weeks of antibiotics. 2. Status post IVANA for ruling out endocarditis, which is ruled out. 3. History of atrial fibrillation. Continue apixaban. 4. Hypertension. 5. Morbid obesity. 6. Hyperlipidemia. 7. Diabetes. 8. Sleep apnea. PLAN: The patient can be discharged home on IV antibiotics depending on availability and course of progression. Patient needs 6-8 weeks of antibiotics, if this is arranged, the patient can be discharged home. Patient already has a PICC line. Pain medicine as per Pain Management and medicine cefazolin will be on discharge. Further recommendation as per clinical course. We will continue to monitor the patient. The patient was noted to have hyperkalemia today. Chemistry showed a potassium of 5.5 that has been repeated with sodium of 133. BUN and creatinine have been normal. We will monitor this before discharge. If the potassium remains high, the patient will need Kayexalate and also hydration for the low sodium. MD DICK Ambriz/MODL /[id number]
--- NOTE | 2019-11-29 10:35 | Progress Note ---
DATE: 11/28/2019 SUBJECTIVE: Mr. Drummond, who was lying in bed, comfortable. He said he is still having pain. He refused the MRI of lumbar spine twice, but he is telling me his back pain is about the same since he got ill this time. His repeat cultures back on this one set was negative. We will repeat another blood culture. REVIEW OF SYSTEMS: Besides the back pain, he is still having pain in his shoulder, which he is taking Dilaudid every 3 hours, but he is telling me he does have issues with pain before. He does see his pain management. Pain, as mentioned above. No nausea. No vomiting. No diarrhea. No urgency. No frequency. No fever. LABORATORY DATA: Reviewed. His white count is 14.8 and hemoglobin 11.5. His sodium 136 and creatinine 0.85 on November 26. PHYSICAL EXAMINATION: GENERAL: He is currently alert and oriented. Does not seem to be in acute distress. VITAL SIGNS: Stable, currently afebrile. HEENT: He is not icteric. NECK: Supple. CHEST: Clear bilateral. HEART: S1 and S2. No S3, S4, or murmur. ABDOMEN: Soft. Bowel sounds present. No tenderness. EXTREMITIES: No edema. IMPRESSION: 1. 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 However, the clinical picture is consistent with endocarditis or endothelial infection. 2. History of atrial fibrillation. 3. History of hypertension. 4. History of chronic pain. 5. History of morbidly obese patient. PLAN: To obtain the blood cultures. Continue Ancef 2 g q.8 if the blood cultures are negative and we can control his pain. He could be discharged home. Discussed with the patient. Discussed with the medical team. MD RAJINDER Lou/SHERRIE /[id number]
--- NOTE | 2019-11-29 11:39 | NUR ---
Spoke with Candy at Dr. Forrester's office. Pt has been approved. Can come tomorrow at 11am, if discharged today. MAULIK Ferraro was informed and states she will call Dr. Winkler to see if pt can be discharged today.
--- NOTE | 2019-11-29 15:02 | NUR ---
Gave pt's at bedside appointment information in case pt discharges later today - Dr. Forrester's office: [address] [place] [address] [place] [address] Appointment for 11:15 am on 11/30/19 Addendum: 11/29/19 at 1504 by Christie Hendrickson CM Correction - appointment time 11:00am
--- NOTE | 2019-11-29 15:18 | NUR ---
spoke with Dr. Regan Winkler regarding repeat Potassium level of 5.6; new orders received.
[2019-11-29] MEDS ORDERED: ONDANSETRON HCL 4 MG ORAL DISINTEGRATING TAB PO PRN (15:30)
[2019-11-29] MEDS ORDERED: SOD POLYSTYRENE SULFONATE SUSP 15 GM/60 ML BTL PO NR (15:30)
--- NOTE | 2019-11-29 20:00 | NUR ---
pt received. pt assessed. no ss of distress noted. pt co pain to right chest wall related to surgery. discussed pain mngt poc. verbalized understanding. will medicate per orders. tele in place. dylon drain cdi. will cont to follow poc. call valdez within reach.
[2019-11-29] MEDS: ACETAMINOPHEN 325 MG TAB PO PRN (22:01)
[2019-11-30] MEDS: HYDROMORPHONE 1MG/1ML INJ IV PRN ×3 (03:44→09:47)
[2019-11-30] MEDS: CEFAZOLIN SOD 2 GM/D5W 50ML 50 ML IV SCH (05:06)
[2019-11-30 05:10] VITALS: BP 129/71
[2019-11-30 05:52] LABS: ANION GAP 10.3 mmol/L (8-16); BLOOD UREA NITROGEN 28 mg/dL (7-26); BUN/CREATININE RATIO 28 (6-25); CALCIUM 8.3 mg/dL (8.4-10.2); CARBON DIOXIDE 32 mmol/L (22-29); CHLORIDE 97 mmol/L (98-107); CREATININE, SERUM 0.99 mg/dL (0.72-1.25); EST GLOMERULAR FILTRATION RATE > 60 ML/MIN (60-); GLUCOSE 126 mg/dL (74-118); POTASSIUM 5.3 mmol/L (3.5-5.1); SODIUM 134 mmol/L (136-145)
[2019-11-30] MEDS: INSULIN LISPRO 100 UNIT/1 ML 3ML VIAL SQ SCH (07:30)
--- NOTE | 2019-11-30 07:47 | NUR ---
bedside shift report received. pt awake, alert, no complaints at this time. no signs of distress. will continue to monitor.
[2019-11-30 07:55] VITALS: BP 129/71
[2019-11-30] MEDS ORDERED: HYDROCODONE/APAP 10MG-325MG TAB PO PRN (08:15)
[2019-11-30 08:17] VITALS: BP 188/89
--- NOTE | 2019-11-30 09:38 | NUR ---
Dr. Paul cam to pt's bedside. LORENA drain removed, pt tolerated well.
[2019-11-30] MEDS: LAMOTRIGINE 25 MG TAB PO SCH (09:45)
[2019-11-30] MEDS: APIXABAN 5 MG TABLET PO SCH (09:45)
[2019-11-30] MEDS: METOPROLOL TARTRATE 50 MG TAB PO SCH (09:46)
[2019-11-30] MEDS: GABAPENTIN 400 MG CAP PO SCH (09:46)
[2019-11-30] MEDS: ALLOPURINOL 300 MG TAB PO SCH (09:46)
[2019-11-30] MEDS ORDERED: INFLUENZA VIRUS VAC SPLIT INJ 0.5 ML SYR IM ONE (10:15)
[2019-11-30] MEDS ORDERED: PNEUMOCOCCAL VACCINE POLYVALENT 23 MCG/0.5 ML VIAL IM ONE (10:15)
--- NOTE | 2019-11-30 10:15 | NUR ---
Pt cleared for discharge today. Informed Candy with Dr. Forrester's office. States pt can still come in today at 11. CM to pt's bedside to informed pt of appointment time.
--- NOTE | 2019-12-10 13:58 | Operative Report ---
DATE OF PROCEDURE: 11/25/2019 SURGEON: Ezra Power MD PROCEDURE PERFORMED: Cardiac catheterization. INDICATION FOR PROCEDURE: Staph aureus bacteremia. PREPROCEDURE ASSESSMENT: Risks, benefits, and alternatives of treatment were explained to the patient prior to the procedure. Informed consent was obtained and documented in the medical record. MEDICATIONS: Please see Anesthesia and nursing notes for medications administered throughout the procedure. DESCRIPTION OF PROCEDURE: The patient was brought to the operating room. Oropharynx was sprayed for local anesthesia. Bite block was placed and monitored anesthesia care was given once the patient was sedated by anesthesia. IVANA probe was passed without difficulty and IVANA was performed to rule out endocarditis. Once appropriate images were completed, IVANA probe was removed without any significant complications. The patient tolerated the procedure well. GRAFTS AND IMPLANTS: None. SPECIMEN REMOVED: None. ESTIMATED BLOOD LOSS: None. COMPLICATIONS: None. FINAL RECOMMENDATIONS: No endocarditis noted. Ezra Power MD KVP/MODL /[id number]
[2019-12-11] MEDS ORDERED: VANCOMYCIN 1GM/NS 250 ML 250 ML IV SCH (12:00)
== END 2019-11-30 10:15 | disposition home or self-care (01) | DRG 854 ==
LOC: ER 09:58 → ERHOLD 13:09 → MED/SURG2 19:12
PROVIDERS: ADMIT Family Medicine; ATTEND Family Medicine
PROC: 0K9 Muscles, Drainage (ICD-10-PCS; principal; 2019-11-22 16:26)
PROC: 02HV33Z Insertion of Infusion Device into Superior Vena Cava, Percutaneous Approach (ICD-10-PCS; 2019-11-26)
DX: A41.01 Sepsis due to Methicillin susceptible Staphylococcus aureus (principal); L02.213 Cutaneous abscess of chest wall; L03.313 Cellulitis of chest wall; I10 Essential (primary) hypertension; Z68.38 Body mass index [BMI] 38.0-38.9, adult; E11.9 Type 2 diabetes mellitus without complications; M25.511 Pain in right shoulder; M54.9 Dorsalgia, unspecified; Z90.5 Acquired absence of kidney; E66.01 Morbid (severe) obesity due to excess calories; E78.5 Hyperlipidemia, unspecified; G47.33 Obstructive sleep apnea (adult) (pediatric); G89.29 Other chronic pain; I48.0 Paroxysmal atrial fibrillation
CPT/HCPCS: 36415; 36569; 36600; 71045; 71260; 80048; 80053; 80202; 81001; 82550; 82553; 82805; 82948; 83605; 83880; 84132; 84484; 85025; 87040; 87071; 87075; 87186; 87205; 90732; 93005; 93306; 93312; 96367; 96372; 96376; 99284; J0690; J1170; J2001; J2250; J2405; J2543; J3010; J3370; J7030; J7040; J7050; Q9967

== ENCOUNTER 2019-12-10 17:14 | Inpatient (IN) | payer OTHER, MEDICARE ==
[~2019-12-10] VITALS: Ht 180.3 cm; Wt 127.9 kg
[~2019-12-10 17:14] MED LIST changes: +LAMOTRIGINE100 MG PO; +LASIX40 MG PO; +POTASSIUM CHLO10 ME1 PO; +TESTOSTERO200 MG/1 M; +TIZANIDINE HCL4 MG PO
[2019-12-10] MEDS ORDERED: NITROGLYCERIN 2% OINT 1 GM PKT TOP ONE (18:00)
[2019-12-10 18:44] LABS: BASOPHILS % 0.3 % (0.0-1.0); EOSINOPHILS # (AUTO) 0.1 (0.0-0.4); EOSINOPHILS % 2.1 % (0.0-6.0); HEMATOCRIT 26.3 % (38.2-49.6); HEMOGLOBIN 8.2 g/dL (14.0-18.0); LYMPHOCYTES % 16.2 % (18.0-39.1); MEAN CORPUSCULAR HEMOGLOBIN 29.5 pg (28-32); MEAN CORPUSCULAR HGB CONC 31.2 g/dL (31-35); MEAN CORPUSCULAR VOLUME 94.6 fL (81-99); MONOCYTES # (AUTO) 0.6 (0.2-0.8); MONOCYTES % 9.5 % (4.4-11.3); NEUTROPHILS # (AUTO) 4.4 (2.1-6.9); PLATELET COUNT 225 x10e3/uL (140-360); RED BLOOD COUNT 2.78 x10e6/uL (4.3-5.7); RED CELL DISTRIBUTION WIDTH 14.2 % (11.7-14.4)
[2019-12-10 18:51] LABS: INR 1.34; PARTIAL THROMBOPLASTIN TIME 31.7 seconds (23.8-35.5); PROTHROMBIN TIME 17.5 seconds (11.9-14.5)
[2019-12-10 18:59] LABS: ALBUMIN 2.4 g/dL (3.5-5.0); ALBUMIN/GLOBULIN RATIO 0.6 (0.8-2.0); ALKALINE PHOSPHATASE 91 IU/L (40-150); ANION GAP 13.3 mmol/L (8-16); BLOOD UREA NITROGEN 23 mg/dL (7-26); BUN/CREATININE RATIO 18 (6-25); CARBON DIOXIDE 29 mmol/L (22-29); CHLORIDE 99 mmol/L (98-107); CREATINE KINASE 39 IU/L (30-200); CREATININE, SERUM 1.27 mg/dL (0.72-1.25); EST GLOMERULAR FILTRATION RATE 57 ML/MIN (60-); GLUCOSE 103 mg/dL (74-118); MAGNESIUM 1.6 MG/DL (1.3-2.1); SODIUM 136 mmol/L (136-145)
--- NOTE | 2019-12-10 19:02 | Diagnostic Imaging Report ---
EXAMINATION: CHEST 2 VIEWS INDICATION: SOB COMPARISON: 11/26/2019 FINDINGS: PA and lateral views TUBES and LINES: Left upper cavity PICC terminates in the SVC. LUNGS: Lungs are well inflated. Left basilar atelectasis has improved.. There is no evidence of pneumonia or pulmonary edema. PLEURA: No pleural effusion or pneumothorax. HEART AND MEDIASTINUM: The cardiomediastinal silhouette is unremarkable. BONES AND SOFT TISSUES: No acute osseous lesion. Soft tissues are unremarkable. UPPER ABDOMEN: No free air under the diaphragm. IMPRESSION: Left basilar atelectasis has improved. Signed by: Avel Guzmán MD on 12/10/2019 7:00 PM
[2019-12-10 19:05] LABS: ALANINE AMINOTRANSFERASE < 6 IU/L (0-55); POTASSIUM 5.3 mmol/L (3.5-5.1)
[2019-12-10] MEDS ORDERED: FUROSEMIDE INJ 10 MG/ML 4 ML VIAL IV ONE (19:15)
[2019-12-10] MEDS ORDERED: DEXTROSE 50% SYRINGE 50 ML IV PRN (19:45)
[2019-12-10 20:00] LABS: CLARITY,URINE SL CLOUDY (CLEAR); COLOR,URINE YELLOW (YELLOW)
[2019-12-10] MEDS ORDERED: NITROGLYCERIN 2% OINT 1 GM PKT TOP PRN (20:00)
--- NOTE | 2019-12-10 20:00 | NUR ---
DOPPLER TO BE PERFORMED 12/11/[address] BALBUENA
[2019-12-10 20:01] LABS: BILIRUBIN,URINE NEGATIVE (NEGATIVE); KETONES,URINE NEGATIVE (NEGATIVE); LEUKOCYTE ESTERASE ,URINE NEGATIVE (NEGATIVE); NITRITE,URINE NEGATIVE (NEGATIVE); PROTEIN,URINE DIPSTICK 2+ (NEGATIVE); URINE UROBILINOGEN 0.2 mg/dL (0.2 - 1)
[2019-12-10] MEDS: HYDROCODONE/APAP 7.5MG-325MG 1 EA TAB PO PRN (20:12)
[2019-12-10 20:13] LABS: BACTERIA,URINE MODERATE /HPF
[2019-12-10 20:14] LABS: EPITHELIAL CELLS,URINE RARE /LPF
[2019-12-10] MEDS: INSULIN LISPRO 100 UNIT/1 ML 3ML VIAL SQ SCH (21:00)
--- NOTE | 2019-12-10 23:03 | NUR ---
Pt moved to ED 9 for privacy/comfort, placed on hospital bed.
[2019-12-11] MEDS: HYDROCODONE/APAP 7.5MG-325MG 1 EA TAB PO PRN ×5 (03:23→23:54)
--- NOTE | 2019-12-11 06:05 | NUR ---
SPOKE TO [employer], SALLIE WILLINGHAM; INFORMED OF NEED FOR DOPPLER
[2019-12-11 06:33] LABS: BASOPHILS % 0.2 % (0.0-1.0); EOSINOPHILS # (AUTO) 0.1 (0.0-0.4); EOSINOPHILS % 1.6 % (0.0-6.0); HEMATOCRIT 26.6 % (38.2-49.6); HEMOGLOBIN 7.9 g/dL (14.0-18.0); LYMPHOCYTES # (AUTO) 0.9 (1.0-3.2); LYMPHOCYTES % 14.9 % (18.0-39.1); MEAN CORPUSCULAR HEMOGLOBIN 28.3 pg (28-32); MEAN CORPUSCULAR HGB CONC 29.7 g/dL (31-35); MEAN CORPUSCULAR VOLUME 95.3 fL (81-99); MONOCYTES # (AUTO) 0.6 (0.2-0.8); MONOCYTES % 10.3 % (4.4-11.3); NEUTROPHILS # (AUTO) 4.4 (2.1-6.9); NEUTROPHILS % 71.2 % (38.7-80.0); PLATELET COUNT 248 x10e3/uL (140-360); RED BLOOD COUNT 2.79 x10e6/uL (4.3-5.7); RED CELL DISTRIBUTION WIDTH 14.2 % (11.7-14.4)
--- NOTE | 2019-12-11 06:38 | NUR ---
Dr. Youssef rounding on Pt at this time, pending further orders.
[2019-12-11 06:45] LABS: ALBUMIN 2.3 g/dL (3.5-5.0); ALBUMIN/GLOBULIN RATIO 0.5 (0.8-2.0); ALKALINE PHOSPHATASE 87 IU/L (40-150); ANION GAP 10.5 mmol/L (8-16); BLOOD UREA NITROGEN 24 mg/dL (7-26); BUN/CREATININE RATIO 21 (6-25); CALCIUM 8.9 mg/dL (8.4-10.2); CARBON DIOXIDE 33 mmol/L (22-29); CHLORIDE 102 mmol/L (98-107); CHOL/HDL RATIO 4.2 (3.9-4.7); CHOLESTEROL 113 MD/DL (0-199); CREATININE, SERUM 1.16 mg/dL (0.72-1.25); EST GLOMERULAR FILTRATION RATE > 60 ML/MIN (60-); GLUCOSE 119 mg/dL (74-118); HDL CHOLESTEROL 27 MG/DL (40-60); LDL CHOLESTEROL 68 MG/DL (60-130); POTASSIUM 5.5 mmol/L (3.5-5.1); SODIUM 140 mmol/L (136-145); TRIGLYCERIDES 89 MG/DL (0-149)
[2019-12-11 06:46] LABS: ALANINE AMINOTRANSFERASE < 6 IU/L (0-55)
--- NOTE | 2019-12-11 06:48 | NUR ---
Verbal orders to change pain med order from Q6H to Q4H PRN
[2019-12-11 07:08] LABS: CREATINE KINASE MB 1.9 ng/mL (0-5.0)
[2019-12-11] MEDS: INSULIN LISPRO 100 UNIT/1 ML 3ML VIAL SQ SCH ×4 (08:37→21:36)
[2019-12-11] MEDS ORDERED: SOD POLYSTYRENE SULFONATE SUSP 15 GM/60 ML BTL PO ONE (10:15)
--- NOTE | 2019-12-11 10:30 | NUR ---
STILL WAITING FOR CALL BACK FROM DR AYALA REGARDING ANTIBIOTIC ORDERS.
--- NOTE | 2019-12-11 11:11 | NUR ---
Received patient , a/ox3, CC is dyspnea, exacerbated more with exertion, BNP in the 300's, Tele number [phone], LE edema, pain BLE, right chest scar, Picc line to FARA, patient has been on abx at home, call light within reach, will monitor.
[2019-12-11 11:13] VITALS: BP 179/114
--- NOTE | 2019-12-11 11:35 | NUR ---
Consults to Dr. Forrester and Steve being called at this time
[2019-12-11 11:44] VITALS: BP 199/90
--- NOTE | 2019-12-11 11:55 | NUR ---
Call back from Dr. Power and orders to resume BP meds and Hydralazine PRN. Call back from Dr. Forrester and orders for Vanco 1 gram Q12. They will come by to see patient today
[2019-12-11] MEDS ORDERED: LISINOPRIL 10 MG TAB PO SCH (12:00)
[2019-12-11] MEDS ORDERED: SODIUM CHLORIDE 0.9% 250ML 250 ML ONE (12:07)
[2019-12-11] MEDS: VANCOMYCIN 1GM/NS 250 ML 250 ML IV SCH ×2 (12:26→23:55)
--- NOTE | 2019-12-11 12:27 | History and Physical ---
REASON FOR ADMISSION: 1. Anasarca. 2. CHF. 3. Anemia. HISTORY OF PRESENT ILLNESS: The patient is a 64-year-old gentleman with worsening anasarca, shortness of breath, and anemia, so he has been admitted for further evaluation and treatment. PAST MEDICAL HISTORY: Significant for CHF and hypertension. MEDICATIONS: See MAR. ALLERGIES: MORPHINE. SOCIAL HISTORY: Lives at home. Nondrinker. FAMILY HISTORY: Hypertension. PHYSICAL EXAMINATION: VITAL SIGNS: Temperature is 98.6, blood pressure 166/74, pulse 74, and saturations 98% on room air. GENERAL: No apparent distress, lying in bed. NECK: Supple. No lymphadenopathy. CARDIOVASCULAR: Regular rate and rhythm. LUNGS: Decreased breath sounds bilaterally. ABDOMEN: Good bowel sounds. Soft and nontender. EXTREMITIES: No clubbing or cyanosis. He does have 2+ edema on the right upper and lower extremity, 1+ edema on the left upper and lower extremity. NEUROLOGICAL: Nonfocal. ASSESSMENT AND PLAN: 1. Anasarca. Continue with diuretics. 2. Congestive heart failure. We will consult Cardiology. 3. Anemia. Continue to monitor p.r.n. 4. Chronic kidney disease, stage 3. Continue to monitor. 5. Hyperlipidemia. We will monitor. 6. Hypertension. Continue with current care and monitoring. Please see hospital chart for full details. MD WILLIAMS Saravia/SHERRIE /[id number]
[2019-12-11] MEDS: HYDRALAZINE HCL 20 MG/ML VIAL IV PRN ×2 (12:36→16:44)
--- NOTE | 2019-12-11 12:36 | NUR ---
Patient refused Lisinopril, states he was told to stop taking it.
--- NOTE | 2019-12-11 13:01 | NUR ---
CONSULT [id number]
--- NOTE | 2019-12-11 15:26 | NUR ---
Nutrition Screen Note RD Recommendation for Physician: -Rec adding cardiac to ADA diet Plan of Care: RD following, monitoring for tolerance and adequacy Nutrition reason for involvement: Diagnosis Primary Diagnose(s): 1. Anasarca. 2. CHF. 3. Anemia. PMH: CHF and hypertension Ht: 71in Wt: 279lb BMI: 38.9kg/m2 IBW: 172lb +/- 10% RD Assessment: (12/10) Chart reviewed. Labs and meds reviewed. 64yo M, who was admitted for CHF and anasarca. Visited pt in the room. Pt reported good appetite. Pt denied any nausea or vomiting. No chewing or swallowing difficulty noted. Pt reported some weight gain from fluid retention. Pt and were aware of the importance of weight loss and low sodium intake. No further question during my time of visit. Will continue to monitor and follow. Current Diet: ADA 1800 diet Malnutrition Evaluation (12/11/2019) The patient does not meet criteria for a specified degree of malnutrition at this time. Will re-evaluate at follow-up as appropriate. Diet Education Needs Assessment: Diet education not indicated. Nutrition Care Level: low Signed: Gisselle Rees, MS, RD, LD
[2019-12-11 15:47] VITALS: BP 194/92
[2019-12-11] MEDS: METOPROLOL TARTRATE 50 MG TAB PO SCH (16:44)
--- NOTE | 2019-12-11 19:15 | NUR ---
REPORT RECEIVED FROM DAY RN. PT IS ALERT AND ORIENTED X3. RT ARM REMAINS EDEMATOUS. TELE ON. RESTING IN BED IN SEMI- FOWLERS POSITION. DENIES PAIN. RESPIRATIONS ARE EVEN AND UNLABORED. LEFT UPPER ARM DL PICC PATENT WITH HEALTHY SITE. PT REPORTS CONTINUES TO HAVE SHOULDER PAIN. CALL LIGHT WITHIN REACH. BED IN LOW POSITION.
[2019-12-11 20:00] VITALS: BP 175/88
[2019-12-11] MEDS: ONDANSETRON HCL INJ 2MG/ML 2ML 2 MG/ML VIAL IV PRN (21:41)
[2019-12-11 21:43] VITALS: BP 175/88
--- NOTE | 2019-12-11 21:58 | Consultation ---
DATE OF CONSULTATION: 12/11/2019 REASON FOR CONSULTATION: Bacteremia, recommendation antibiotics; shortness of breath, pneumonia, and DVT. HISTORY OF PRESENT ILLNESS: This patient who is a 64-year-old white male, who is well known to me from previous admission. The patient was here recently with a diagnosis of MSSA bacteremia and sepsis. The patient was treated with cefazolin. He was discharged home on Ancef. He called that he is short of breath and he has swelling in his right upper extremity. This patient who is known to have history of DVT and is on anticoagulation. I have discussed his case with Dr. Winkler. He was here recently with right chest wall abscess, underwent I and D. He grew Staph aureus from the blood as well from the chest. The patient does have a history of gout, obesity, neuropathy, and hypertension. He had echocardiogram. The plan was to treat him with IV antibiotics for 8 weeks. The patient as mentioned above he was here back on December 09. The plan is to finish 8 weeks, but he comes in because he was short of breath and bilateral lower extremities edema and also swelling in the arm. The patient is being admitted. When I saw the patient, he is feeling slightly better, I was asked to see him. PAST MEDICAL HISTORY: As above. PAST SURGICAL HISTORY: As above. ALLERGIES: NKDA. SOCIAL HISTORY: He denies smoking, drug abuse, or alcohol abuse. FAMILY HISTORY: Hypertension. REVIEW OF SYSTEMS: At the present time, shortness of breath, swelling in the arm. : Negative. GI: Negative. SKIN: There is no rash. LABORATORY DATA: White count 6.22, hemoglobin 8.2, platelet 225, eosinophil was 2.5. Sodium 140, potassium 5.5, creatinine 1.16, it was 1.27 yesterday with albumin of 2.3. PHYSICAL EXAMINATION: GENERAL: He is currently alert and oriented, does not seem to be in acute distress. VITAL SIGNS: Stable. Currently afebrile. HEENT: He is normocephalic, not icteric. NECK: Supple. CHEST: Clear. HEART: S1, S2. ABDOMEN: Soft. Bowel sounds present. No Tenderness. EXTREMITIES: No edema. IMPRESSION: 1. Shortness of breath, concern if fluid overload versus other. The patient is already on anticoagulation. Recommend to obtain cardiac evaluation and echocardiogram. 2. History of MSSA sepsis. We will change him to vancomycin just in case that it could be drug related. 3. Other medical problems as above. He has history of DVT on anticoagulation. Other medical problem discussed. We will follow. MD RAJINDER Lou/SHERRIE /[id number]
[2019-12-12] VITALS (8 sets, daily range): BP systolic 114–195; BP diastolic 55–98
[2019-12-12] MEDS: HYDRALAZINE HCL 20 MG/ML VIAL IV PRN ×3 (03:17→12:03)
--- NOTE | 2019-12-12 04:55 | Progress Note ---
DATE: 12/12/2019 SUBJECTIVE: The patient still states he has lower body aches and still very swollen. OBJECTIVE: VITAL SIGNS: Temperature 97.9, pulse 85, blood pressure 171/92, sats 92% on room air. GENERAL: No apparent distress, lying in bed. CARDIOVASCULAR: Regular rate and rhythm. LUNGS: Clear to auscultation bilaterally. ABDOMEN: Good bowel sounds. Soft, nontender. EXTREMITIES: No clubbing, cyanosis. Does show diffuse edema in the upper and lower extremities. ASSESSMENT AND PLAN: 1. Anasarca. Continue with current care. 2. Cellulitis. Continue with antibiotics. . 3. Hyperlipidemia. We will check . 4. Anemia. We will check a CBC. 5. Hypertension. Continue current care. Please see hospital chart for full details. MD WILLIAMS Saravia/SHERRIE /[id number]
[2019-12-12] MEDS ORDERED: FUROSEMIDE INJ 10 MG/ML 2 ML VIAL IV SCH (06:00)
[2019-12-12 06:23] LABS: BASOPHILS % 0.3 % (0.0-1.0); EOSINOPHILS # (AUTO) 0.1 (0.0-0.4); EOSINOPHILS % 1.1 % (0.0-6.0); HEMATOCRIT 26.8 % (38.2-49.6); HEMOGLOBIN 8.1 g/dL (14.0-18.0); MEAN CORPUSCULAR HEMOGLOBIN 28.8 pg (28-32); MEAN CORPUSCULAR HGB CONC 30.2 g/dL (31-35); MEAN CORPUSCULAR VOLUME 95.4 fL (81-99); MONOCYTES # (AUTO) 0.6 (0.2-0.8); MONOCYTES % 9.2 % (4.4-11.3); NEUTROPHILS # (AUTO) 4.8 (2.1-6.9); NEUTROPHILS % 72.9 % (38.7-80.0); PLATELET COUNT 230 x10e3/uL (140-360); RED BLOOD COUNT 2.81 x10e6/uL (4.3-5.7); RED CELL DISTRIBUTION WIDTH 14.5 % (11.7-14.4)
[2019-12-12 06:48] LABS: ALANINE AMINOTRANSFERASE 7 IU/L (0-55); ALBUMIN 2.3 g/dL (3.5-5.0); ALBUMIN/GLOBULIN RATIO 0.6 (0.8-2.0); ALKALINE PHOSPHATASE 89 IU/L (40-150); ANION GAP 9.5 mmol/L (8-16); BLOOD UREA NITROGEN 15 mg/dL (7-26); BUN/CREATININE RATIO 17 (6-25); CALCIUM 8.8 mg/dL (8.4-10.2); CARBON DIOXIDE 32 mmol/L (22-29); CHLORIDE 101 mmol/L (98-107); CREATININE, SERUM 0.88 mg/dL (0.72-1.25); EST GLOMERULAR FILTRATION RATE > 60 ML/MIN (60-); GLUCOSE 118 mg/dL (74-118); MAGNESIUM 1.5 MG/DL (1.3-2.1); POTASSIUM 4.5 mmol/L (3.5-5.1); SODIUM 138 mmol/L (136-145)
[2019-12-12] MEDS: HYDROCODONE/APAP 10MG-325MG TAB PO PRN ×3 (06:58→20:07)
[2019-12-12] MEDS: INSULIN LISPRO 100 UNIT/1 ML 3ML VIAL SQ SCH ×4 (07:02→21:31)
[2019-12-12] MEDS: METOPROLOL TARTRATE 50 MG TAB PO SCH (09:57)
[2019-12-12] MEDS: VANCOMYCIN 1GM/NS 250 ML 250 ML IV SCH (12:03)
[2019-12-12] MEDS: ONDANSETRON HCL INJ 2MG/ML 2ML 2 MG/ML VIAL IV PRN ×2 (12:17→22:48)
[2019-12-12] MEDS: LABETALOL HCL 200 MG TAB PO SCH ×2 (12:45→17:20)
[2019-12-12] MEDS ORDERED: LABETALOL HCL 20 MG/4 ML SYRINGE IV ONE (12:45)
[2019-12-12] MEDS ORDERED: LABETALOL HCL 5 MG/ML 20ML VIAL IV ONE (13:15)
[2019-12-12] MEDS: ISOSORBIDE MONONITRATE 30 MG TAB CR PO SCH (14:09)
[2019-12-12] MEDS: HYDRALAZINE HCL 25 MG TAB PO SCH ×2 (14:10→23:39)
--- NOTE | 2019-12-12 14:41 | Progress Note ---
DATE: 12/12/2019 Cardiology Progress Note SUBJECTIVE: No major events overnight. OBJECTIVE: VITAL SIGNS: Temperature afebrile, pulse 75, respiratory rate 20, blood pressure 170/75, saturating 95% on room air. GENERAL: Well developed, well nourished, no acute distress. CARDIOVASCULAR: Regular rate and rhythm. No murmurs, rubs, or gallops. LUNGS: Clear to auscultation bilaterally. ABDOMEN: Soft, nontender, nondistended. NEURO AND PSYCH: Alert and oriented to person, place, and time. Normal affect. INPATIENT MEDICATIONS: Reviewed. LABORATORY DATA: Reviewed. Potassium, creatinine, now improved. TELEMETRY DATA: Reviewed, shows normal sinus rhythm. ASSESSMENT: 1. Hypertensive urgency. 2. Acute on chronic diastolic heart failure. 3. History of atrial fibrillation, status post ablation. 4. Recent Staph aureus bacteremia, on antibiotics. 5. Acute kidney injury. 6. Volume overload. PLAN: We will increase diuretics at 40 mg IV b.i.d. Up titrate his blood pressure medicines today. We will add hydralazine and labetalol given hyperkalemia and STACEY. Echocardiogram reviewed. LV ejection fraction is preserved with abnormal diastolic function. No significant valvular abnormalities to suspect endocarditis and had recent IVANA, which was negative in the setting of staph aureus bacteremia. Blood cultures have been negative so far. Thank you for this consult. We will continue to follow. MD MICHAEL Greene/TRIPL /[id number]
[2019-12-12] MEDS: FUROSEMIDE INJ 10 MG/ML 2 ML VIAL IV SCH (17:20)
--- NOTE | 2019-12-12 19:10 | NUR ---
REPORT RECEIVED FROM DAY RN . PT IS ALERT AND ORIENTED X4. RESPIRATIONS ARE EVEN AND UNLABORED. FARA PICC DL INTACT. TELE ON. RT HAND REMAINS EDEMATOUS. ENCOURAGING PT TO ELEVATE ON PILLOW. LBM TODAY. VOIDING WITHOUT DIFFICULTY. DENIES PAIN. PT RESTING IN SEMI- FOWLERS POSITION WATCHING TV. CALL LIGHT WITHIN REACH. BED LOCKED AND IN LOW POSITION.
--- NOTE | 2019-12-12 20:32 | Consultation ---
DATE OF CONSULTATION: 12/11/2019 Cardiology Consult Note REASON FOR CONSULT: CHF exacerbation. CHIEF COMPLAINT: Shortness of breath and arm and leg swelling. HISTORY OF PRESENT ILLNESS: The patient is a 64-year-old man, known to our service. He has history of diastolic CHF; hypertension; hyperlipidemia; nonobstructive coronary artery disease; recent chest wall abscess, Staph aureus bacteremia, currently on antibiotics; and history of atrial fibrillation, status post ablation, who presents with worsening swelling in his right arm and lower extremities, shortness of breath, and anemia. Denies any chest pain. He said he has been compliant with his medications. He has been on IV antibiotics for Staph aureus bacteremia. PAST MEDICAL HISTORY: As stated in the HPI. REVIEW OF SYSTEMS: As per HPI, otherwise negative. No fevers, chills, orthopnea, or PND. SOCIAL HISTORY: He does not smoke, drink, or abuse drugs. FAMILY HISTORY: Noncontributory. OUTPATIENT MEDICATIONS: Reviewed. ALLERGIES: ALLERGIC TO MORPHINE. OBJECTIVE: VITAL SIGNS: Temperature afebrile, pulse 86, respiratory rate 20, blood pressure 194/92, and saturating 96% on room air. GENERAL: Well developed, well nourished, in no acute distress. CARDIOVASCULAR: Regular rate and rhythm. No murmurs, rubs, or gallops. LUNGS: Clear to auscultation anteriorly. Difficult exam due to body habitus. ABDOMEN: Obese, soft, nontender, nondistended. EXTREMITIES: Swelling of right upper extremity as well as bilateral lower extremities. Warm, well perfused. ABDOMEN: Obese, soft, nontender, nondistended. NEURO AND PSYCH: Alert, oriented to person, place, and time. Normal affect. INPATIENT MEDICATIONS: Reviewed. LABORATORY DATA: Reviewed, notable for hemoglobin of 8.2, potassium 5.3 with creatinine of 1.27. BNP 345. IMAGING DATA: Reviewed. Chest x-ray shows bibasilar atelectasis that has been improving, no pulmonary edema. TELEMETRY DATA: Reviewed, shows normal sinus rhythm with the PACs. ASSESSMENT: 1. History of atrial fibrillation, status post ablation. 2. Chronic diastolic heart failure. 3. Acute kidney injury. 4. Recent Staphylococcus aureus bacteremia, on antibiotics. 5. Lower extremity edema. 6. Hypertensive urgency. PLAN: Echocardiogram has been ordered and is awaiting completion. Continue diuresis. Treatment of hyperkalemia per Primary team. Remains in normal sinus rhythm. We will up titrate blood pressure medicine as tolerated. Avoid KAMILLE inhibitors or ARBs given the STACEY and hyperkalemia. We will continue to follow. MD MICHAEL Greene/SHERRIE /[id number]
--- NOTE | 2019-12-12 23:07 | NUR ---
PT REQUESTING AMBIEN 10 MG AT HS WHICH HE TAKES AT HOME PRN. NEW ORDER RECEIVED FROM DR ESPINO.
[2019-12-12] MEDS: ZOLPIDEM TARTRATE 10 MG TAB PO PRN (23:40)
[2019-12-13] VITALS (8 sets, daily range): BP systolic 105–156; BP diastolic 65–80
--- NOTE | 2019-12-13 01:08 | NUR ---
VANCO TROUGH 13.5. VANCO GIVEN ORDERED.
[2019-12-13] MEDS ORDERED: SODIUM CHLORIDE 0.9% 250ML 250 ML ONE (01:26)
[2019-12-13] MEDS: VANCOMYCIN 1GM/NS 250 ML 250 ML IV SCH ×2 (01:30→12:03)
[2019-12-13] MEDS: FUROSEMIDE INJ 10 MG/ML 2 ML VIAL IV SCH ×2 (06:09→18:57)
[2019-12-13] MEDS: HYDROCODONE/APAP 10MG-325MG TAB PO PRN ×3 (06:25→19:41)
[2019-12-13] MEDS: HYDRALAZINE HCL 25 MG TAB PO SCH ×2 (06:41→14:20)
--- NOTE | 2019-12-13 07:14 | NUR ---
DR GONZÁLES HERE UPDATED ON MED CHANGES FOR B/P MEDS . LASIX 40 MG GIVEN IV ORDERED. B/P REMAINS 160/93 APRESOLINE 100 MG GIVEN ORDERED. PICC LINE PATENT. RED PORT FLUSHES EASILY. PURPLE PORT UNABLE TO FLUSH- REPORTED TO DAY RN.
--- NOTE | 2019-12-13 07:14 | Progress Note ---
DATE: 12/13/2019 SUBJECTIVE: A 64-year-old gentleman, who comes in with heart failure, came in with shortness of breath and also with history of MSSA sepsis. Currently feeling a little better, but still continues to be short of breath on exertion. No chest pain. Positive for edema in bilateral lower extremities also. DVT noted in the right upper extremity. MEDICATIONS: Hydralazine, hydrocodone as needed, insulin, isosorbide dinitrate, and vancomycin. OBJECTIVE: VITAL SIGNS: Temperature is 98.5, respirations of 18, blood pressure is 136/73, pulse oximetry 93% oxygen on room air. HEENT: Normocephalic and atraumatic. The patient is obese. CVS: S1 and S2 regular. ABDOMEN: Nontender, nondistended. Abdomen is protuberant. EXTREMITIES: Right upper extremity with swelling. Bilateral lower extremity with swelling. LUNGS: Decreased air entry with possible crackles at the lung bases. LABORATORY VALUES: Yesterday's hemoglobin is 8.1, hematocrit of 26.8, RDW 14.5. Coags normal. Chemistries; BUN of 15, creatinine 0.88, and potassium was 4.5. Glucoses have been running in the 126. Urine had moderate rbc's and moderate bacteria. MICROBIOLOGY: Culture is so far negative, no growth in 36 to 48 hours. IMAGING: Echocardiogram shows ejection fraction of 40% to 45%. No DVTs present either. ASSESSMENT: Mr. Supa Drummond with: 1. Paroxysmal atrial fibrillation, intermittent. 2. The patient is status post cardioversion. 3. Acute congestive systolic heart failure and has chronic diastolic dysfunction. 4. History of methicillin-sensitive Staphylococcus aureus sepsis. 5. Volume overload. 6. Hyperkalemia. 7. Hyperlipidemia. 8. Morbid obesity. PLAN: 1. Continue with IV diuresis. The patient has been taken off his KAMILLE and ARBs for his hyperkalemia. 2. All medicines reviewed. 3. Continue with Imdur and hydralazine. The patient will be continued on IV diuresis today. Possible discharge tomorrow depending on progression. Further recommendation per clinical course. Regan Winkler MD ASJ/MODL /[id number]
[2019-12-13 08:03] LABS: % IRON SATURATION 10 % (15-50); IRON 22 ug/dL (65-175); TOTAL IRON BINDING CAPACITY 227 ug/dL (261-478); TRANSFERRIN 162 mg/dL (174-364)
[2019-12-13] MEDS: INSULIN LISPRO 100 UNIT/1 ML 3ML VIAL SQ SCH ×4 (08:30→21:00)
[2019-12-13] MEDS: ASPIRIN 81 MG CHEW TAB PO SCH (09:35)
[2019-12-13] MEDS: LABETALOL HCL 200 MG TAB PO SCH ×2 (09:35→16:47)
[2019-12-13] MEDS: ISOSORBIDE MONONITRATE 30 MG TAB CR PO SCH (09:35)
--- NOTE | 2019-12-13 16:49 | NUR ---
PT REPORTS SHORT "MOMENT OF DIZZINESS", BUT "IT PASSED", PT NOT WANTING TO EAT AT THIS TIME, INSULIN HELD UNLESS HE EATS, CALL LIGHT WITHIN REACH, FAMILY AT SIDE
--- NOTE | 2019-12-13 17:34 | NUR ---
MD BAGLEY INTO SEE PT, DISCUSSED POC, MADE AWARE OF PT C/O DIZZINESS, ORDER NOTED TO MONITOR, PT DENIES DIZZINESS AT THIS TIME, CALL LIGHT WITHIN REACH
--- NOTE | 2019-12-13 19:25 | NUR ---
Received bedside report from day nurse. Patient resting in bed, no s/s of distress at this time. All safety measures in place. Family at bedside. Will continue to monitor.
--- NOTE | 2019-12-13 19:50 | NUR ---
Received report from Aure WILLINGHAM.
--- NOTE | 2019-12-13 20:36 | NUR ---
Patient off the floor for CT of abd.
--- NOTE | 2019-12-13 20:43 | Progress Note ---
DATE: 12/13/2019 Cardiology Progress Note SUBJECTIVE: The patient denies chest pain or shortness of breath. His main complaint is of nausea. OBJECTIVE: VITAL SIGNS: Temperature 98.4 degrees, pulse 84, respiratory rate 18, blood pressure 156/80, oxygen saturation 98% on room air. GENERAL: Obese gentleman, in no acute distress. Awake and alert. LUNGS: Clear to auscultation bilaterally. No wheezes or crackles. CARDIOVASCULAR: Normal rate, regular rhythm. No murmur. Normal S1, S2. ABDOMEN: Soft, nontender. EXTREMITIES: 2+ pitting edema. CARDIAC MEDICATIONS: Labetalol 200 mg p.o. b.i.d., aspirin 81 mg p.o. daily, isosorbide mononitrate 60 mg p.o. daily, furosemide 40 mg IV b.i.d. LABORATORY DATA: None today. TELEMETRY: Personally reviewed and interpreted, revealing normal sinus rhythm. IMPRESSION: 1. Paroxysmal atrial fibrillation. 2. Acute on chronic systolic and diastolic heart failure. 3. Hypertension. 4. Hyperlipidemia. 5. Recent Staph aureus bacteremia, on antibiotics. RECOMMENDATIONS: Monitor patient closely on telemetry. The patient's blood pressure remains poorly controlled I's and O's are not well recorded. Monitor electrolytes given IV diuretics. The patient's blood pressure has decreased significantly since admission. This may be causing the patient to feel orthostatic. Give his history of systolic heart failure, we will discontinue labetalol as well as hydralazine. Start patient on carvedilol and lisinopril instead. Monitor response to changes in medications. Continue current cardiac medications otherwise. We would resume Eliquis for CVA prophylaxis. Thank you for this consult. We will continue to follow. Anita Jenkins MD ABS/MODL /[id number]
--- NOTE | 2019-12-13 21:05 | Diagnostic Imaging Report ---
Abdomen/KUB INDICATION: ^ABD FULLNESS ^[id number] ^2039 ^Y COMPARISON: No relevant priors. FINDINGS: Medical Devices: Multiple clips in the medial left hemiabdomen, possibly within the retroperitoneum Bowel: The stomach is distended. No dilated loops of small bowel. There is air in the large bowel with mild amount of stool in the ascending colon. No air in the rectum. No pneumatosis. Free air: None Abdominal calcifications: None over the renal shadows or along the expected course of the ureters Organomegaly: None Lung bases: Clear Bones: Degenerative changes of the spine. IMPRESSION: Gaseous distention of the stomach. No dilated small or large bowel. Multiple abdominal adrian. Please correlate with surgical history. Signed by: Dr. Lilibeth Nicole MD on 12/13/2019 9:02 PM
[2019-12-13] MEDS: HYDRALAZINE HCL 100 MG TABLET PO SCH (21:36)
[2019-12-13 22:06] LABS: CALCIUM 8.3 mg/dL (8.4-10.2); CREATININE, SERUM 1.72 mg/dL (0.72-1.25)
[2019-12-14] VITALS (8 sets, daily range): BP systolic 116–200; BP diastolic 63–92
[2019-12-14] MEDS ORDERED: SODIUM CHLORIDE 0.9% 250ML 250 ML ONE (00:02)
[2019-12-14] MEDS: ONDANSETRON HCL INJ 2MG/ML 2ML 2 MG/ML VIAL IV PRN ×2 (01:11→14:40)
[2019-12-14] MEDS ORDERED: MORPHINE SULFATE 2 MG/ML SYR 1ML IV PRN (03:15)
[2019-12-14] MEDS: FUROSEMIDE INJ 10 MG/ML 2 ML VIAL IV SCH (05:43)
[2019-12-14] MEDS: HYDRALAZINE HCL 100 MG TABLET PO SCH ×3 (05:43→21:38)
--- NOTE | 2019-12-14 07:15 | Progress Note ---
DATE: 12/14/2019 SUBJECTIVE: A 64-year-old gentleman with a history of atrial fibrillation, atrial flutter, recent MSSA infection, and ccngx-bx-whkpirt congestive heart failure. The patient did well, continues to be on IV Lasix, had abdominal pain yesterday, was kept n.p.o. Imaging studies done yesterday on abdominal series shows gaseous distension of stomach. No dilated small or large bowel, multiple abdominal adrian and correlate with surgical history. Currently kept n.p.o., on IV morphine for pain control, stopped his hydrocodone at this time. No chest pain. Positive for shortness of breath. The patient has abdominal pain. OBJECTIVE: VITAL SIGNS: Temperature is 98.1, pulse of 71, respirations of 20, blood pressure is 116/63, pulse oximetry 99%. HEENT: Normocephalic and atraumatic. Pupils are reactive. CVS: S1 and S2 normal. Regular rhythm. ABDOMEN: Slightly distended. EXTREMITIES: No clubbing, no cyanosis, no edema. LABORATORY VALUES: None done today. Chemistry shows sodium of 137, potassium is 5.0, BUN of 19, creatinine of 1.72, glucose of 139. ASSESSMENT: Mr. Supa Drummond with: 1. Abdominal pain. Repeat abdominal series. 2. History of paroxysmal atrial fibrillation. 3. Status post cardioversion. 4. Gipcl-pb-kjpjvqx congestive heart failure. 5. Methicillin-sensitive Staphylococcus aureus. 6. Volume overload. 7. Hyperkalemia. PLAN: Continue with IV Lasix. Today, we will reassess his KUB. Continue with pain control, IV antibiotic, and both consultants on-board are Cardiology and Infectious Disease. Further recommendation per clinical course. We will keep close eye on his potassium too. Medicines reviewed. MD RAFAELA AmbrizJ/MODL /[id number]
[2019-12-14] MEDS: INSULIN LISPRO 100 UNIT/1 ML 3ML VIAL SQ SCH ×4 (07:30→21:36)
[2019-12-14] MEDS: ASPIRIN 81 MG CHEW TAB PO SCH (07:54)
[2019-12-14] MEDS: ISOSORBIDE MONONITRATE 30 MG TAB CR PO SCH (07:55)
[2019-12-14] MEDS: METOCLOPRAMIDE HCL 10 MG/2ML VIAL IV SCH ×4 (08:00→21:35)
--- NOTE | 2019-12-14 08:05 | Consultation ---
DATE OF CONSULTATION: 12/14/2019 HISTORY OF PRESENT ILLNESS: This is a 64-year-old gentleman, who has history of CHF and hypertension, presented to the hospital because of worsening anasarca and also anemia. He apparently complains of nausea as well as abdominal distension. He denies any vomiting. He denies any constipation. He had a KUB yesterday, which shows gaseous distension of the stomach and otherwise history unremarkable. He denies any history of ulcer disease. PAST MEDICAL PROBLEM: Significant for history of CHF, history of hypertension, history of anasarca, history of chronic kidney disease. He also has MSSA sepsis and right upper quadrant edema, DVT. ALLERGIES: MORPHINE. CURRENT MEDICATIONS: Including Lasix, Zofran, vancomycin, insulin, aspirin, Imdur, Ambien, hydralazine, Cozaar, Coreg. SOCIAL HISTORY: No alcohol. FAMILY HISTORY: Noncontributory. REVIEW OF SYSTEMS: Denies any chest pain or shortness of breath. Denies any dysphagia or odynophagia. Denies any dysuria, hematuria, or any kind of syncopal episode. PHYSICAL EXAMINATION: GENERAL: Awake, alert, appears to be stable. In no acute distress at this point. VITAL SIGNS: He is afebrile. Currently with stable vital signs. HEAD, EYES, EARS, NOSE, AND THROAT: Normocephalic, atraumatic. Sclerae are anicteric. NECK: Supple. HEART: Sounds regular. LUNGS: Clear. ABDOMEN: Soft, mildly distended. It is nontender. EXTREMITIES: There is no clubbing. LABORATORY VALUES: As of yesterday, BUN of 19 and creatinine of 1.72. The hemoglobin a couple of days ago was 8.1 with hematocrit of 26.8. KUB shows stomach distension. IMPRESSION: 1. Abdominal distension and nausea. KUB shows stomach distension. 2. History of congestive heart failure. 3. History of emesis. 4. Sepsis. RECOMMENDATIONS: Continue current care at this point. I will probably add some Reglan. We will obtain CAT scan of abdomen and pelvis, and follow labs. MD LEIDY Márquez/SHERRIE /[id number] cc: Regan Winkler MD
[2019-12-14] MEDS ORDERED: DIATRIZOATE MEGL/DIATRIZOA SOD 30 ML BTL PO ONE (08:14)
[2019-12-14] MEDS ORDERED: LOSARTAN POTASSIUM 25 MG TAB PO SCH (09:00)
[2019-12-14] MEDS ORDERED: CARVEDILOL 12.5 MG TAB PO SCH (09:00)
[2019-12-14] MEDS: SODIUM CHLORIDE 0.9% 1000ML 1,000 ML IV SCH ×2 (10:00→21:37)
--- NOTE | 2019-12-14 10:57 | Diagnostic Imaging Report ---
CT of the chest, abdomen and pelvis, without contrast. History: CHF, abdominal distention. Comparison: CT chest with contrast from 11/22/2019. Technique: Multidetector CT scanning of the abdomen and pelvis was performed from the level of the lung bases to the inferior pubic rami after oral administration of contrast only. Coronal and sagittal multiplanar reformations were obtained. RADIATION DOSE: Total DLP: 1130.08 mGy*cm Dose modulation, iterative reconstruction, and/or weight based adjustment of the mA/kV was utilized to reduce the radiation dose to as low as reasonably achievable. FINDINGS: The thyroid and remaining visualized structures within the base of neck demonstrate no significant abnormalities. Partially visualized left-sided PICC line identified with distal tip terminating within the left brachiocephalic vein. The thoracic aorta is normal course and caliber. The heart is not enlarged. No abnormal pericardial fluid is present. There is no abnormal axillary, mediastinal, or hilar lymph node enlargement. There is persistent although decreased soft tissue thickening with small foci of gas involving the right retropectoral soft tissues and right anterior mediastinum about the right sternoclavicular joint. Findings are concerning for a localized chest wall infection. There is no evidence for organized/drainable fluid collection or destruction of the adjacent osseous structures. The trachea and proximal airways are patent. Examination of the lungs demonstrates no evidence for consolidation, pneumothorax, mass, suspicious nodule, or pleural effusion. Scattered areas of subsegmental atelectasis noted. The liver is normal in size and attenuation on this noncontrast enhanced examination. The gallbladder is unremarkable. There is no biliary ductal dilatation. The stomach, spleen, pancreas, and bilateral adrenal glands are unremarkable. There are postsurgical changes from left nephrectomy. No soft tissue mass or other abnormality is identified within the left renal fossa. The right kidney is normal in size and location. Exophytic hypodensities are identified arising off the right kidney likely representing cysts. There is no evidence for nephrolithiasis or hydronephrosis. The right ureter is normal course and caliber. The partially distended urinary bladder demonstrates no significant abnormalities. The prostate contains calcifications. There is wall thickening and mild adjacent inflammatory change identified about the second and third portions of the duodenum. The remaining visualized loops small large bowel demonstrate no evidence of obstruction or inflammation. Diverticula are noted within the sigmoid/descending colon without evidence for acute diverticulitis. There is no ascites or intraperitoneal free air. No abnormally enlarged lymph nodes are identified within the abdomen or pelvis. Surgical clips noted within the anterior midline abdominal wall. The osseous structures demonstrate degenerative changes without evidence for acute fracture or destructive process. IMPRESSION: 1. Persistent although decreased soft tissue thickening and foci of gas noted about the right sternoclavicular joint concerning for a localized chest wall infection. No evidence for organized/drainable fluid collection. 2. Wall thickening and mild adjacent inflammatory change noted about the duodenum which can be seen in the setting of duodenitis. No evidence for bowel obstruction or perforation. 3. Diverticulosis coli without evidence for acute diverticulitis. 4. Status post left nephrectomy. Signed by: Dr. Jericho Pisano MD on 12/14/2019 10:54 AM
--- NOTE | 2019-12-14 12:22 | Progress Note ---
DATE: 12/14/2019 Cardiology Progress Note SUBJECTIVE: The patient denies chest pain or shortness of breath because he is complaining of gas. OBJECTIVE: VITAL SIGNS: Temperature 97.9 degrees, pulse 103, respiratory rate 18, blood pressure 200/92, and oxygen saturation 95% on nasal cannula. GENERAL: Obese woman, in no acute distress, awake and alert. LUNGS: Clear to auscultation bilaterally. No wheezes or crackles. CARDIOVASCULAR: Normal rate. Regular rhythm. No murmur. Normal S1 and S2. ABDOMEN: Soft and nontender. EXTREMITIES: 2+ pitting edema. CARDIAC MEDICATIONS: 1. Losartan 25 mg p.o. daily. 2. Isosorbide mononitrate 60 mg p.o. daily. 3. Carvedilol 12.5 mg p.o. b.i.d. 4. Aspirin 81 mg p.o. daily. 5. Furosemide 40 mg IV b.i.d. 6. Hydralazine 100 mg p.o. every 8 hours. LABORATORY DATA: None today. TELEMETRY: Personally reviewed and revealed a normal sinus rhythm. IMPRESSION: 1. Paroxysmal atrial fibrillation. 2. Acute on chronic systolic and diastolic heart failure. 3. Hypertension. 4. Hyperlipidemia. 5. Recent Staphylococcus aureus bacteremia, on antibiotics. RECOMMENDATIONS: Monitor the patient closely on telemetry. The patient's blood pressure is poorly controlled. Increase carvedilol. Stop losartan given STACEY. Stop IV diuretics. Continue hydralazine and isosorbide mononitrate. Monitor blood pressure response to changes in medications. Continue current cardiac medications otherwise. Recommend resuming Eliquis for CVA prophylaxis if no procedures are planned. Thank you for this consult. We will continue to follow. Anita Jenkins MD ABS/MODL /[id number]
[2019-12-14] MEDS: VANCOMYCIN 1GM/NS 250 ML 250 ML IV SCH ×2 (12:58)
[2019-12-14] MEDS: HYDROMORPHONE 1MG/1ML INJ IV PRN ×2 (14:39→19:56)
[2019-12-14] MEDS: CARVEDILOL 12.5 MG TAB PO SCH (17:08)
--- NOTE | 2019-12-14 19:24 | NUR ---
report given to oncoming nurse, walking rounds complete.
--- NOTE | 2019-12-14 20:29 | Progress Note ---
DATE: 12/14/2019 SUBJECTIVE: Mr. Drummond is feeling better. There are no new complaints. His laboratory data reviewed. His white count is 6.5, hemoglobin 8.1. Sodium 137, potassium 5.0. His CT of the chest showed persistent, but decreased soft tissue thickening and foci of gas at right subclavian joint, concerning chest wall infection. No evidence of abscess. Duodenitis noted in abdominal CAT scan. His cultures are still pending. PHYSICAL EXAMINATION: GENERAL: He is currently alert and oriented. Does not seem to be in acute distress. VITAL SIGNS: Stable, afebrile. HEENT: Not icteric. NECK: Supple. CHEST: Clear. HEART: S1 and S2. ABDOMEN: Soft. IMPRESSION: 1. Abdominal pain, nausea, and duodenitis. 2. History of sepsis, methicillin-sensitive Staphylococcus aureus. We will put him back on cefazolin. 3. Could be discharged home from Infectious Disease point of view. Please call [phone] for discharge. MD RAJINDER Lou/SHERRIE /[id number]
[2019-12-15] VITALS (8 sets, daily range): BP systolic 143–185; BP diastolic 69–93
[2019-12-15] MEDS: VANCOMYCIN 1GM/NS 250 ML 250 ML IV SCH ×2 (01:16→12:00)
[2019-12-15] MEDS: HYDROMORPHONE 1MG/1ML INJ IV PRN ×2 (04:39→22:04)
[2019-12-15] MEDS: INSULIN LISPRO 100 UNIT/1 ML 3ML VIAL SQ SCH ×4 (07:30→21:00)
[2019-12-15] MEDS: HYDRALAZINE HCL 100 MG TABLET PO SCH ×3 (08:03→22:04)
[2019-12-15 08:14] LABS: BASOPHILS % 0.3 % (0.0-1.0); EOSINOPHILS # (AUTO) 0.1 (0.0-0.4); EOSINOPHILS % 1.8 % (0.0-6.0); HEMATOCRIT 28.9 % (38.2-49.6); HEMOGLOBIN 8.9 g/dL (14.0-18.0); LYMPHOCYTES % 12.9 % (18.0-39.1); MEAN CORPUSCULAR HGB CONC 30.8 g/dL (31-35); MEAN CORPUSCULAR VOLUME 94.1 fL (81-99); MONOCYTES # (AUTO) 0.9 (0.2-0.8); MONOCYTES % 11.4 % (4.4-11.3); NEUTROPHILS # (AUTO) 5.5 (2.1-6.9); NEUTROPHILS % 72.4 % (38.7-80.0); PLATELET COUNT 272 x10e3/uL (140-360); RED BLOOD COUNT 3.07 x10e6/uL (4.3-5.7); RED CELL DISTRIBUTION WIDTH 14.9 % (11.7-14.4)
[2019-12-15 08:34] LABS: ANION GAP 10.3 mmol/L (8-16); CALCIUM 8.6 mg/dL (8.4-10.2); CREATININE, SERUM 1.28 mg/dL (0.72-1.25); MAGNESIUM 1.6 MG/DL (1.3-2.1); POTASSIUM 4.3 mmol/L (3.5-5.1)
[2019-12-15] MEDS: ASPIRIN 81 MG CHEW TAB PO SCH (08:37)
[2019-12-15] MEDS: CARVEDILOL 12.5 MG TAB PO SCH ×2 (08:37→16:42)
[2019-12-15] MEDS: ISOSORBIDE MONONITRATE 30 MG TAB CR PO SCH (08:37)
[2019-12-15] MEDS: METOCLOPRAMIDE HCL 10 MG/2ML VIAL IV SCH ×4 (08:43→21:00)
[2019-12-15] MEDS: SODIUM CHLORIDE 0.9% 1000ML 1,000 ML IV SCH (11:51)
--- NOTE | 2019-12-15 12:00 | Diagnostic Imaging Report ---
EXAMINATION: CHEST XRAY LINE PLACEMENT INDICATION: Line placement COMPARISON: Chest radiograph 12/10/2019 FINDINGS: LINES/TUBES:Left PICC line terminates at the region of the confluence of innominate veins. EKG leads overlie the chest. LUNGS:The lungs are moderately inflated. No focal consolidation or pulmonary edema. PLEURA:No pleural effusion or pneumothorax. MEDIASTINUM:The cardiomediastinal silhouette appears unchanged in size and shape. BONES/SOFT TISSUES:No acute osseous injury. ABDOMEN:No free air under the diaphragm. IMPRESSION: Left PICC line terminates at the confluence of innominate veins. Otherwise, no significant interval change. Signed by: Emily Pascal MD on 12/15/2019 11:57 AM
--- NOTE | 2019-12-15 13:23 | NUR ---
INFORMED AL AMANDA OF VANCO TROUGH OF 18.0- AWAITING CALLBACK FOR INSTRUCTIONS TO GIVE OR HOLD THE SCHEDULE DOSE OF VANCOMYCIN.
--- NOTE | 2019-12-15 14:03 | NUR ---
CALL PLACED OUT TO DR. AYALA REGARDING VANCO TROUGH OF 18.0 -AWAITING CALLBACK.
[2019-12-15] MEDS: BUMETANIDE INJ 0.25MG/ML 4ML VIAL IV SCH (17:56)
--- NOTE | 2019-12-15 19:41 | NUR ---
PATIENT LAYING DOWN IN BED- IN STABLE CONDITION WITH NO S/S RESPIRATORY DISTRESS. TELEMETRY APPLIED. NO PAIN VOICED. IV FLUIDS INFUSING. PRESENT IN ROOM. CALL LIGHT IS WITHIN REACH, PATIENT INSTRUCTED TO CALL FOR ASSISTANCE NEEDED. BEDSIDE SHIFT REPORT GIVEN TO ONCOMING NURSE.
[2019-12-15] MEDS ORDERED: ALBUTEROL SULF 0.083% NEB SOLN 3 ML NEB NEB PRN (19:45)
--- NOTE | 2019-12-15 20:02 | NUR ---
RECEIVED PT IN BED AOX3 .C/O SOB .CALLED DR GONZÁLES AND GOT THE ORDER TO GIVE NEB TX.FAMILY AT THE BEDSIDE CALL LIGHT WITH IN REACH .CONTINUE TO MONITOR
--- NOTE | 2019-12-15 20:39 | Progress Note ---
DATE: 12/15/2019 Cardiology Progress Note. SUBJECTIVE: The patient reports shortness of breath and dyspnea on exertion. OBJECTIVE: VITAL SIGNS: Temperature 97.7 degrees, pulse 82, respiratory rate 20, blood pressure 153/69, oxygen saturation 95%. GENERAL: Obese gentleman, in no acute distress, awake, and alert. LUNGS: Clear to auscultation bilaterally. No wheezes or crackles. CARDIOVASCULAR: Normal rate. Regular rhythm. No murmur. Normal S1 and S2. ABDOMEN: Soft and nontender. EXTREMITIES: 2+ pitting edema. CARDIAC MEDICATIONS: 1. Carvedilol 25 mg p.o. b.i.d. 2. Aspirin 81 mg p.o. daily. 3. Hydralazine 100 mg p.o. q.8 hours. 4. Isosorbide mononitrate 60 mg p.o. daily. LABORATORY DATA: WBC 7.65, hemoglobin 8.9, hematocrit 28.9, platelets 272. Sodium 138, potassium 4.3, chloride 102, CO2 of 30 BUN to 14, creatinine 1.28. Telemetry was personally reviewed and interpreted, revealed normal sinus rhythm next. IMPRESSION: 1. Paroxysmal atrial fibrillation. 2. Acute on chronic systolic and diastolic heart failure. 3. Hypertension. 4. Hyperlipidemia. 5. Recent Staphylococcus aureus bacteremia, on antibiotics. RECOMMENDATIONS: Monitor the patient closely. The patient's blood pressure remains elevated, but has improved. Creatinine has improved. Resume the IV diuretics. Continue current cardiac medications otherwise. Recommend resuming Eliquis for CVA prophylaxis if no further procedures are planned. Thank you for this consult. We will continue to follow. Anita Jenkins MD ABS/MODL /[id number]
--- NOTE | 2019-12-15 20:44 | Progress Note ---
DATE: 12/15/2019 SUBJECTIVE: The patient is a 64-year-old gentleman, who comes in with acute exacerbation of CHF, currently still complaining of abdominal pain. CT scan yesterday showed duodenitis. The patient is on a PPI and H2 elisabeth. Currently, no complaints besides abdominal pain, chest pain from the incision still present, complained some shortness of breath. OBJECTIVE: VITAL SIGNS: Temperature is 97.7, pulse of 82, respirations of 20, and blood pressure is 143/69. HEENT: Normocephalic, atraumatic. Pupils are reactive to light and accommodation. CVS: S1, S2, normal. Regular rhythm. ABDOMEN: Tender in the epigastrium. EXTREMITIES: No clubbing, no cyanosis. Positive for trace edema. LABORATORY VALUES: Today's white count 7.65, hemoglobin of 8.9, and hematocrit 28.9. Chemistry; sodium 138, potassium 4.3, BUN of 14, creatinine of 1.28, and glucose is 125. ASSESSMENT: Mr. Supa Drummond with: 1. Acute duodenitis. 2. History of paroxysmal atrial fibrillation. 3. Xnyjc-eh-pogqtem congestive heart failure. 4. Methicillin-sensitive Staphylococcus aureus in the right anterior chest wall area. 5. Volume overload. 6. Hypokalemia. PLAN: Continue on Bumex 1 mg daily. The patient is on carvedilol and hydralazine. Currently, also gettin. IV Lasix. 2. The patient is on cefazolin for his MSSA, continue same. 3. For continuum of duodenitis and nausea, the patient might need an EGD if it continues, and we will continue to monitor the patient as an inpatient, and we will follow up with GI, ID, and also Cardiology. Further recommendation per clinical course. MD DICK Ambriz/SHERRIE /[id number]
[2019-12-15] MEDS ORDERED: CEFAZOLIN SOD 1 GM VIAL IV SCH (22:00)
[2019-12-15] MEDS: CEFAZOLIN SOD 1 GM/NS 50ML 50 ML IV SCH (22:04)
[2019-12-15] MEDS: ZOLPIDEM TARTRATE 10 MG TAB PO PRN (22:04)
[2019-12-15] MEDS: CHOLESTYRAMINE 4 GM PACKET PO SCH (22:04)
--- NOTE | 2019-12-15 23:25 | Progress Note ---
DATE: 12/15/2019 SUBJECTIVE: Mr. Drummond continued to have abdominal discomfort with distention with some shortness of breath. LABORATORY DATA: Reviewed. White count 7.6, hemoglobin 8.9. Vancomycin trough was 18. Sodium 138, potassium 4.3, creatinine 1.28. PHYSICAL EXAMINATION: GENERAL: He is currently alert and oriented, does not seem in acute distress. VITAL SIGNS: Stable, currently afebrile. HEENT: Not icteric. NECK: Supple. CHEST: Clear. HEART: S1, S2. ABDOMEN: Soft. IMPRESSION: Sepsis and bacteremia with methicillin-sensitive Staphylococcus aureus with osteomyelitis of the sternoclavicular joint, slowly getting better. Abdominal distention, obesity, diarrhea. We will add Questran. We will add oral . We will follow. MD RAJINDER Lou/SHERRIE /[id number]
[2019-12-16] VITALS: BP 139/86
[2019-12-16] MEDS: VANCOMYCIN 250MG/5ML ORAL SOLN PO SCH ×3 (00:21→10:56)
[2019-12-16] MEDS: ONDANSETRON HCL INJ 2MG/ML 2ML 2 MG/ML VIAL IV PRN (02:44)
[2019-12-16] MEDS: HYDROMORPHONE 1MG/1ML INJ IV PRN ×2 (02:44→09:09)
[2019-12-16 04:00] VITALS: BP 180/84
[2019-12-16] MEDS: SODIUM CHLORIDE 0.9% 1000ML 1,000 ML IV SCH (06:07)
[2019-12-16] MEDS: HYDRALAZINE HCL 100 MG TABLET PO SCH (06:07)
[2019-12-16] MEDS: CEFAZOLIN SOD 1 GM/NS 50ML 50 ML IV SCH (06:07)
--- NOTE | 2019-12-16 06:42 | NUR ---
PT C/O PAIN AND GIVEN ORDERED DILAUDID .NO ACUTE DISTRESS NOTED .FAMILY AT THE BEDSIDE .CONTINUE TO MONITOR
--- NOTE | 2019-12-16 07:18 | NUR ---
BEDSIDE REPORT GIVEN TO THE ONCOMING NURSE
--- NOTE | 2019-12-16 07:25 | NUR ---
PATIENT IS ALERT AND IN STABLE CONDITION WITH NO S/S RESPIRATORY DISTRESS. NO PAIN VOICED. TELEMETRY APPLIED. IV FLUIDS INFUSING. PRESENT IN ROOM. CALL LIGHT IS WITHIN REACH OF PATIENT- PATIENT INSTRUCTED TO CALL FOR ASSISTANCE NEEDED.
[2019-12-16] MEDS: INSULIN LISPRO 100 UNIT/1 ML 3ML VIAL SQ SCH ×2 (07:30→11:21)
[2019-12-16] MEDS ORDERED: FUROSEMIDE INJ 10 MG/ML 2 ML VIAL IV ONE (08:00)
[2019-12-16] MEDS: BUMETANIDE INJ 0.25MG/ML 4ML VIAL IV SCH (08:10)
[2019-12-16] MEDS: METOCLOPRAMIDE HCL 10 MG/2ML VIAL IV SCH ×2 (08:10→10:56)
[2019-12-16] MEDS: ASPIRIN 81 MG CHEW TAB PO SCH (08:13)
[2019-12-16] MEDS: CARVEDILOL 12.5 MG TAB PO SCH (08:18)
[2019-12-16] MEDS: ISOSORBIDE MONONITRATE 30 MG TAB CR PO SCH (08:23)
[2019-12-16 08:39] VITALS: BP 178/84
[2019-12-16] MEDS ORDERED: APIXABAN 5 MG TABLET PO SCH (09:00)
[2019-12-16] MEDS: CHOLESTYRAMINE 4 GM PACKET PO SCH (09:09)
--- NOTE | 2019-12-16 09:22 | Progress Note ---
DATE: 12/16/2019 SUBJECTIVE: Comes in with acute congestive heart failure. The patient did develop some duodenitis and feeling better. Did get some breathing treatments yesterday. The patient feels better with breathing treatments. Currently, no chest pain or shortness of breath and positive for some tenderness and abdominal pain, but much better than compared to yesterday. The patient is on Reglan. OBJECTIVE: VITAL SIGNS: Patient's temperature is 98.4, afebrile, pulse 105, respirations 18, blood pressure is 188/84, pulse oximeter of 94%. HEENT: Normocephalic, atraumatic. Pupils are reactive to light and accommodation. CVS: S1 and S2 normal. Regular rate and rhythm. ABDOMEN: Tender in the epigastrium. LUNGS: Positive for rales at the lower bases. EXTREMITIES: No clubbing. No cyanosis. Positive for trace edema. LABORATORY VALUES: Toxicology shows vancomycin trough of 18. The patient has been switched. Coags normal. Chemistries; yesterday's sodium and potassium were normal. Hematology; white count remains normal, hemoglobin of 8.9. ASSESSMENT: Mr. Supa Drummond with: 1. Congestive heart failure. The patient has been getting fluids. We will go and discontinue the fluids, also give him IV Lasix 1 dose. 2. History of paroxysmal atrial fibrillation. The patient will be restarted on Eliquis 5 mg twice a day. 3. MSSA sepsis with infection on the right chest wall, which is resolved. His sepsis resolved. 4. Volume overload. 5. Hyperkalemia, resolved. PLAN: Continue on same medications at this time. We will give him 40 Lasix right now IV, Continue cefazolin and for duodenitis, the patient is on Reglan. Continue to monitor the patient. Further recommendation per clinical course. We will forego the EGD now. The patient is feeling better. DISPOSITION: Possible discharge today or tomorrow with IV antibiotics and follow up with ID. MD DICK Ambriz/SHERRIE /[id number]
[2019-12-16 09:28] VITALS: BP 178/84
[2019-12-16 10:57] VITALS: BP 130/65
--- NOTE | 2019-12-16 14:06 | NUR ---
PATIENT DISCHARGE HOME- PATIENT OFF THE UNIT AT 1316 PER WHEELCHAIR ACCOMPANIED BY PCT TO THE FRONT LOBBY. PATIENT IN STABLE CONDITION WITH NO S/S OF RESPIRATORY DISTRESS. NO PAIN VOICED. IV SALINE LOCKED TO LEFT UPPER ARM. PATIENT IS AWARE TO GO TO DR. AYALA'S OFFICE AFTER DISCHARGED FROM THE HOSPITAL. DISCHARGE TEACHING, INSTRUCTIONS, AND MEDICATIONS GIVEN TO THE PATIENT. ALL PERSONAL ITEMS WERE TAKEN WITH THE PATIENT AND HIS .
--- NOTE | 2019-12-16 20:54 | Progress Note ---
DATE: 12/16/2019 Cardiology Progress Note SUBJECTIVE: The patient denies chest pain. He reports his shortness of breath has improved. OBJECTIVE: VITAL SIGNS: Temperature 98 degrees, pulse 75, respiratory rate 18, blood pressure 130/65, and oxygen saturation 94% on room air. GENERAL: Awake and alert, in no acute distress. LUNGS: Clear to auscultation bilaterally. No wheezes or crackles. CARDIOVASCULAR: Normal rate. Regular rhythm. No murmur. Normal S1 and S2. ABDOMEN: Soft and nontender. EXTREMITIES: 2+ pitting edema. CARDIAC MEDICATIONS: Isosorbide mononitrate 60 mg p.o. daily, carvedilol 25 mg p.o. b.i.d., apixaban 5 mg p.o. b.i.d., aspirin 81 mg p.o. daily, and Bumex 1 mg IV daily. LABORATORY DATA: None today. IMPRESSION: 1. Paroxysmal atrial fibrillation. 2. Flxaw-wo-nujysdr systolic and diastolic heart failure. 3. Hypertension. 4. Hyperlipidemia. 5. Recent Staphylococcus aureus bacteremia, on antibiotics. RECOMMENDATIONS: Continue current cardiac medications. The patient may be discharged on p.o. diuretics to complete diuresis at home. He was instructed to follow up in the office in one week for labs. Continue Eliquis for CVA prophylaxis. No further cardiac evaluation is indicated at this time. Thank you for this consult. We will continue to follow. Anita Jenkins MD ABS/MODL /[id number]
== END 2019-12-16 13:16 | disposition home or self-care (01) | DRG 871 ==
LOC: ER 17:14 → ERHOLD 19:45 → MED/SURG 12-11 10:38 → MED/SURG3 12-13 20:02
PROVIDERS: ADMIT Family Medicine; ATTEND Family Medicine
DX: A41.01 Sepsis due to Methicillin susceptible Staphylococcus aureus (principal); I50.43 Acute on chronic combined systolic (congestive) and diastolic (congestive) heart failure; I13.0 Hypertensive heart and chronic kidney disease with heart failure and stage 1 through stage 4 chronic kidney disease, or unspecified chronic kidney disease; N17.9 Acute kidney failure, unspecified; I82.4Y1 Acute embolism and thrombosis of unspecified deep veins of right proximal lower extremity; M86.8X8 Other osteomyelitis, other site; R60.1 Generalized edema; N18.3 Chronic kidney disease, stage 3 (moderate); I48.0 Paroxysmal atrial fibrillation; E87.5 Hyperkalemia; E78.5 Hyperlipidemia, unspecified; Z68.38 Body mass index [BMI] 38.0-38.9, adult; E66.01 Morbid (severe) obesity due to excess calories; I16.0 Hypertensive urgency; R60.0 Localized edema; I25.10 Atherosclerotic heart disease of native coronary artery without angina pectoris; Z86.718 Personal history of other venous thrombosis and embolism; M25.511 Pain in right shoulder; Z79.01 Long term (current) use of anticoagulants; Z68.39 Body mass index [BMI] 39.0-39.9, adult; K29.80 Duodenitis without bleeding
CPT/HCPCS: 36415; 71046; 71250; 74018; 74176; 80048; 80053; 80061; 80202; 81001; 82550; 82553; 82948; 83540; 83735; 83880; 84466; 84484; 85025; 85610; 85730; 86850; 86900; 87086; 87400; 93005; 93306; 93970; 94640; 96360; 96361; 96372; 99284; J0360; J0690; J1170; J1940; J2405; J2765; J3370; J7030; J7050

== ENCOUNTER 2019-12-30 16:14 | Emergency (ER) | payer OTHER, MEDICARE ==
[~2019-12-30] VITALS: Ht 180.3 cm; Wt 127.9 kg
[2019-12-30] MEDS ORDERED: EPOETIN ALFA-EPBX 10,000 UNIT/ML VIAL SC ONE (16:30)
[2019-12-30 17:12] LABS: BASOPHILS % 0.2 % (0.0-1.0); EOSINOPHILS # (AUTO) 0.2 (0.0-0.4); EOSINOPHILS % 2.9 % (0.0-6.0); HEMATOCRIT 24.6 % (38.2-49.6); HEMOGLOBIN 7.3 g/dL (14.0-18.0); LYMPHOCYTES # (AUTO) 0.7 (1.0-3.2); LYMPHOCYTES % 12.8 % (18.0-39.1); MEAN CORPUSCULAR HEMOGLOBIN 28.6 pg (28-32); MEAN CORPUSCULAR HGB CONC 29.7 g/dL (31-35); MEAN CORPUSCULAR VOLUME 96.5 fL (81-99); MONOCYTES # (AUTO) 0.6 (0.2-0.8); MONOCYTES % 10.5 % (4.4-11.3); NEUTROPHILS % 72.5 % (38.7-80.0); PLATELET COUNT 146 x10e3/uL (140-360); RED BLOOD COUNT 2.55 x10e6/uL (4.3-5.7); RED CELL DISTRIBUTION WIDTH 15.3 % (11.7-14.4)
[2019-12-30 17:31] LABS: ALBUMIN 2.8 g/dL (3.5-5.0); ALBUMIN/GLOBULIN RATIO 0.8 (0.8-2.0); ALKALINE PHOSPHATASE 92 IU/L (40-150); ANION GAP 10.1 mmol/L (8-16); BLOOD UREA NITROGEN 11 mg/dL (7-26); BUN/CREATININE RATIO 12 (6-25); CALCIUM 8.3 mg/dL (8.4-10.2); CARBON DIOXIDE 34 mmol/L (22-29); CHLORIDE 97 mmol/L (98-107); CREATININE, SERUM 0.93 mg/dL (0.72-1.25); EST GLOMERULAR FILTRATION RATE > 60 ML/MIN (60-); GLUCOSE 111 mg/dL (74-118); POTASSIUM 4.1 mmol/L (3.5-5.1); SODIUM 137 mmol/L (136-145)
[2019-12-30 17:36] LABS: ALANINE AMINOTRANSFERASE < 6 IU/L (0-55)
== END 2019-12-30 18:09 | disposition home or self-care (01) ==
LOC: ER 16:14
DX: D64.9 Anemia, unspecified (principal); I10 Essential (primary) hypertension; E11.9 Type 2 diabetes mellitus without complications; I48.91 Unspecified atrial fibrillation; I50.9 Heart failure, unspecified; K21.9 Gastro-esophageal reflux disease without esophagitis
CPT/HCPCS: 36415; 80053; 82270; 85025; 86850; 86900; 99284